=== PATIENT | male | born 1950 | race Caucasian/White ===

== ENCOUNTER 2021-02-17 06:59 | Outpatient (CLI) | payer OTHER, SELFPAY ==
--- NOTE | 2021-02-17 07:15 | USCV_ITS ---
Martín Nogueira Age: 71 Gender: M : 1950 Exam Date: 02/17/2021 07:13 Ordering Phys: Maribel Almeida MD ([email or web address]) Technologist: Exam Location: [facility] [place] Indication: CCA DISEASE Risk Factors: Previous Vascular Surgery: Right Brachial BP: / Left Brachial BP: / Right Left Velocity (cm/s) Spectral Plaque Velocity (cm/s) Spectral Plaque Syst/Diast Broadening Syst/Diast Broadening 65.10/ 14.30 Prox CCA 56.20 / 12.50 63.90/ 14.30 Mid CCA 82.20 / 19.80 77.20/ 18.70 Hetro Distal CCA 74.90 / 14.60 Hetro 86.00/ 16.50 Hetro Prox ICA 68.70 / 17.70 Hetro 79.40/ 25.40 Hetro Mid ICA 74.00 / 19.20 Hetro 100.30/26.50 Distal ICA 71.10 / 21.10 119.60 ECA 146.00 1.30 ICA/CCA 0.90 Antegrade Vertebral Antegrade 47.00/ 7.50 cm/s 24.60/ 4.10 cm/s Bi Subclavian Bi 84.90 123.0 0 FINDINGS Moderate heterogeneous plaques bilaterally of the bifurcations and proximal internal carotid arteries Intimal thickening in the common carotid arteries bilaterally. Antegrade flow in the vertebral arteries bilaterally. Near normal Doppler velocities in the external carotid and subclavian arteries bilaterally CONCLUSIONS Moderate heterogeneous plaques bilaterally at the bifurcations and proximal internal carotid arteries with Doppler features consistent with less than 50% stenosis. Intimal thickening in the common carotid arteries bilaterally. Compared to the study from 01/24/2019, there may not be a significant change Dr Maribel Almeida MD [facility] (Electronically Signed) Final Date: 18 February 2021 22:31 S
== END 2021-02-17 07:00 | disposition home or self-care (01) ==
PROVIDERS: PCP Family Medicine; Visit Provider Internal Medicine Cardiovascular Disease
DX: I77.9 Disorder of arteries and arterioles, unspecified (principal); I65.23 Occlusion and stenosis of bilateral carotid arteries
CPT/HCPCS: 93880

== ENCOUNTER 2021-07-21 08:29 | Emergency (ER) | payer OTHER, SELFPAY ==
[2021-07-21 08:33] VITALS: BP 138/89; PULSE 88; RESP 16; TEMP 36.9; O2SAT 92; BMI 33.5
--- NOTE | 2021-07-21 08:57 | W.ED.COVID ---
HPI - COVID General: Chief Complaint: COVID symptoms Stated Complaint: N/V, CONGESTION, FATIGUE Time Seen by Provider: 07/21/21 08:33 Triage information: Has fever, cough or shortness of breath. No known COVID + exposure last 14 days History of Present Illness: HPI Narrative: 71-year-old male presents emergency room complaining of cough and congestion he relates been going on for a week or more. He was seen this [facility] at [facility] and had a Covid swab done there is a send out results no results available. He has not been vaccinated nor is he previously tested positive. He is complaining of nausea is also had some diarrhea that concurred with onset. Low-grade subjective fever upper respiratory congestion nonproductive cough. No vomiting. Some mild abdominal discomfort which she relates to his frequent coughing. MD complaint: has COVID symptoms Prior covid testing: yes, results pending at other location Prior testing date: 07/21/21 COVID 19 common symptoms: positive fever(s), chills, cough and non-productive cough; negative throat pain, nasal congestion, nausea, vomiting or diarrhea COVID 19 other sytmptoms: negative chest pain or requiring oxygen Onset (ago): week(s) (1 week or more) Severity: mild Pertinent comorbid conditions: diabetes and hypertension Treatment prior to arrival: none COVID Results: SARS-CoV-2 Antigen (Rapid) Positive (Negative) H 07/21/21 09:28 07/21/21 Review of Systems Const: Reports: fever(s) and chills ENMT: Denies: throat pain, ear or mastoid pain, nasal discharge or nasal congestion Card: Denies: chest pain, edema, dyspnea on exertion or orthopnea Resp: Reports: non-productive cough GI: Denies: abdominal pain, nausea, vomiting, hematemesis, coffee ground emesis, diarrhea, constipation, bloating, hematochezia or melena : Denies: flank pain, dysuria, urinary frequency or urinary urgency Skin/Breast: Denies: rash or pruritus PFSH ED PFSH: Medical History Aortic valve sclerosis 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 Carotid stenosis Dyslipidemia Essential (primary) hypertension Pacemaker Family History Mother CAD (coronary artery disease) Brother CAD (coronary artery disease) Family/Other CAD (coronary artery disease) Sister Cancer Denies family history of Diabetes Clotting disorder Dementia Chronic kidney disease (CKD) Suicide Anesthesia complication Bleeding disorder Lung disease Stroke Social History Smoking and tobacco status: former smoker Alcohol intake: never Physical Exam Const: COMMON NORMALS: no acute distress GENERAL APPEARANCE: cooperative and comfortable ORIENTATION/CONSCIOUSNESS: Yes awake, Yes oriented to person, Yes oriented to place and Yes oriented to time HENMT: COMMON NORMALS: normocephalic and atraumatic HEAD & SCALP: normocephalic and atraumatic Neck/C-Spine: COMMON NORMALS: no JVD Resp: COMMON NORMALS: normal respiratory effort, No retractions, No use of accessory muscles and clear to auscultation bilaterally AUSCULTATION: clear to auscultation bilaterally Cardio: COMMON NORMALS: no JVD, regular rate, regular rhythm and No murmurs present (Cardio) RATE: regular rate RHYTHM: regular rhythm GI: COMMON NORMALS: Soft to palpation and No hepatosplenomegaly present AUSCULTATION: Yes normoactive bowel sounds PALPATION: Yes Soft to palpation, No Tenderness to palpation present (GI), No Guarding due to palpation present (GI) and Yes No hepatosplenomegaly present Extremity: COMMON NORMALS: normal to inspection, capillary refill normal, no clubbing, cyanosis or edema, no calf tenderness and no pedal edema Neuro: SENSORIUM/ORIENTATION: Yes oriented to person, Yes oriented to place and Yes oriented to time Skin: COMMON NORMALS: no rashes or lesions noted GENERAL SKIN EXAM: no rashes or lesions noted Course Vital Signs: Vital signs: Vital Signs Temperature 98.4 F 07/21/21 08:33 Pulse Rate 68 07/21/21 09:25 Respiratory Rate 16 07/21/21 09:25 Blood Pressure 138/89 07/21/21 08:33 Pulse Oximetry 90 07/21/21 09:34 MDM - COVID MDM Narrative Medical decision making narrative: Patient initially evaluated for home O2 and [place] into discharge the patient is oxygen sats that seem to decrease some we repeated the evaluation he does not qualify we will discharge him home on 2 weeks liters per minute also on dexamethasone follow-up with his primary care doctor tomorrow return if has further problems. Medical Records Attestation: I reviewed the patient's medical records. Lab Data Attestation: I reviewed the patient's lab results. Result diagrams: 07/21/21 09:29 07/21/21 09:29 Labs: Radiology Impressions Chest X-Ray 07/21/21 08:59 Impression: 1. Minimal peripheral patchy opacity in the right lung which could represent acute pneumonia. 2. Cardiomegaly and permanent cardiac pacemaker. Laboratory Results WBC 5.6 10^3/uL (4.0-10.0) 07/21/21 09: RBC 6.26 10^6/uL (4.1-5.3) H 07/21/21 09: Hgb 16.2 g/dL (11.7-16.6) 07/21/21 09: Hct 50.4 % (42.0-52.0) 07/21/21 09: MCV 80.5 fl (80-94) 07/21/21 09: MCH 25.9 pg (28.0-34.0) L 07/21/21 09: MCHC 32.1 g/dL (30.0-36.0) 07/21/21 09: RDW 15.6 % (12.1-15.1) H 07/21/21 09: Plt Count 351 10^3/cmm (130-400) 07/21/21 09: MPV 10.8 fL (7.4-10.4) H 07/21/21 09: Neut % (Auto) 70.1 % 07/21/21 09: Lymph % (Auto) 12.5 % 07/21/21 09: Dukes % (Auto) 13.9 % 07/21/21 09: Eos % (Auto) 2.5 % 07/21/21 09: Baso % (Auto) 0.5 % 07/21/21 09: Neut # (Auto) 3.94 10^3/uL (1.8-7.7) 07/21/21 09:29 Lymph # (Auto) 0.7 10^3/uL (0.8-4.8) L 07/21/21 09: Dukes # (Auto) 0.8 10^3/uL (0.2-0.9) 07/21/21: Eos # (Auto) 0.1 10^3/uL (0.0-0.8) 07/21/21: Baso # (Auto) 0.0 10^3/uL (0.0-0.1) 07/21/21: Nucleated RBC % (auto) 0 % 07/21/21: Nucleated RBCs # 0.0 /100WBC 07/21/21: Sodium 139 mmol/L (136-145) 07/21/21: Potassium 4.2 mmol/L (3.5-5.1) 07/21/21: Chloride 102 mmol/L (98-107) 07/21/21: Carbon Dioxide 20 mmol/L (22-29) L 07/21/21: Anion Gap 21.2 (5-19) H 07/21/21: BUN 19 mg/dL (8-23) 07/21/21: Creatinine 1.3 mg/dL (0.7-1.2) H 07/21/21: GFR Calculation 54.6 mL/min (90-130) L 07/21/21: Glucose 109 mg/dL (65-115) 07/21/21: Calculated Osmolality 291 mOsm/kg (285-295) 07/21/21: Calcium 9.5 mg/dL (8.5-10.5) 07/21/21: Total Bilirubin 0.4 mg/dL (0.15-1.2) 07/21/21: AST 18 U/L (0-40) 07/21/21: ALT 18 U/L (0-41) 07/21/21: Alkaline Phosphatase 57 IU/L (40-130) 07/21/21: Total Protein 7.6 g/dL (6.6-8.7) 07/21/21: Albumin 4.1 g/dL (3.5-5.2) 07/21/21: Globulin 3.5 g/dL (1.3-4.6) 07/21/21 09:29 SARS-CoV-2 Ag (Rapid) Positive (Negative) H 07/21/21 09:28 COVID Results: SARS-CoV-2 Antigen (Rapid) Positive (Negative) H 07/21/21 09:28 07/21/21 Discharge Plan Discharge Patient Disposition: Home Clinical Impression: COVID-19 Condition: Stable Prescriptions: New dexamethasone 6 mg tablet 6 mg PO DAILY Qty: 7 0RF Zofran 4 mg tablet 4 mg PO Q6H PRN (Reason: nausea and vomiting) Qty: 20 0RF No Action multivitamin [Multiple Vitamins] Tablet 1 tab PO DAILY 0RF omega-3 fatty acids [Fish Oil Concentrate] 1,000 mg capsule 1,000 mg PO BID 0RF Rx Instructions: 1200 mg capsules rosuvastatin 20 mg tablet 20 mg PO DAILY 0RF aspirin [Adult Low Dose Aspirin] 81 mg tablet,delayed release (DR/EC) 81 mg PO DAILY 0RF amlodipine 10 mg tablet 10 mg PO DAILY 0RF cholecalciferol (vitamin D3) 25 mcg (1,000 unit) capsule 25 mcg PO TID 0RF lisinopril 40 mg tablet 40 mg PO DAILY Qty: 90 3RF Discharge Orders: Discharge ED (Routine); Ordered 07/21/21 Ordered By: Ernie Orozco Other Ambulatory Orders: DME: Oxygen (Order) Location: None Selected Ordered By: Ernie Orozco Referrals: Lucy Puente MD [Primary Care Provider] - Discharge Diet: Usual diet Discharge Activity: Increase activity as tolerated Patient Instructions: COVID-19 (Coronavirus Disease 2019) (ED), Opioid Safety Activity Restrictions/Additional Instructions: Maintain home quarantine until symptoms have improved for 24 hours. Monitor oxygen sat with home pulse oximeter given to you at discharge. If sats at rest while on oxygen are less than 90% return to emergency room. Coding Level of Care Code ED Consumer Relations Complaint Clerk for Jose Pandey Exam Comprehensive
--- NOTE | 2021-07-21 08:59 | XR_ITS ---
WS: [id number] Portable AP upright chest, 07/21/2021 Clinical Data: cough Comparison: Portable chest, 04/20/2018. Findings: There is minimal peripheral patchy opacity in the right lung. The left lung is clear. The 2 -lead pacemaker remains in good position. The aortic arch and descending thoracic aorta show calcific ation and tortuosity. The pulmonary vascularity is not increased. No pneumothorax is seen. The heart is normal. XR/XR chest 1V portable [id number] Impression: 1. Minimal peripheral patchy opacity in the right lung which could represent ac [place] pneumonia. 2. Cardiomegaly and permanent cardiac pacemaker.
--- NOTE | 2021-07-21 09:24 | PC.NURSE ---
pt placed on continuous spo2, nibp, and cm.
[2021-07-21 09:25] VITALS: PULSE 68; RESP 16; O2SAT 91
[2021-07-21 09:32] VITALS: O2SAT 91
[2021-07-21 09:34] VITALS: O2SAT 90; O2SAT 91
[2021-07-21 09:42] LABS: Basophils % 0.5 %; Eosinophils # 0.1 10^3/uL (0.0-0.8); Eosinophils % 2.5 %; Hematocrit 50.4 % (42.0-52.0); Hemoglobin 16.2 g/dL (11.7-16.6); Lymphocytes # 0.7 10^3/uL (0.8-4.8); Lymphocytes % 12.5 %; Mean Corpuscular HGB Conc 32.1 g/dL (30.0-36.0); Mean Corpuscular Hemoglobin 25.9 pg (28.0-34.0); Mean Corpuscular Volume 80.5 fl (80-94); Mean Platelet Volume 10.8 fL (7.4-10.4); Monocytes # 0.8 10^3/uL (0.2-0.9); Monocytes % 13.9 %; Neutrophils # 3.94 10^3/uL (1.8-7.7); Neutrophils % 70.1 %; Nucleated Red Blood Cells % 0 %; Platelet Count 351 10^3/cmm (130-400); Red Blood Count 6.26 10^6/uL (4.1-5.3); Red Cell Distribution Width 15.6 % (12.1-15.1); White Blood Count 5.6 10^3/uL (4.0-10.0)
[2021-07-21 09:59] LABS: Alanine Aminotransferase 18 U/L (0-41); Albumin Level 4.1 g/dL (3.5-5.2); Alkaline Phosphatase 57 IU/L (40-130); Anion Gap 21.2 (5-19); Aspartate Amino Transferase 18 U/L (0-40); Blood Urea Nitrogen 19 mg/dL (8-23); Calcium 9.5 mg/dL (8.5-10.5); Carbon Dioxide 20 mmol/L (22-29); Chloride 102 mmol/L (98-107); Globulin 3.5 g/dL (1.3-4.6); Glomerular Filtration Rate 54.6 mL/min (90-130); Glucose 109 mg/dL (65-115); Osmolality Calculated 291 mOsm/kg (285-295); Potassium 4.2 mmol/L (3.5-5.1); Sodium 139 mmol/L (136-145); Total Bilirubin 0.4 mg/dL (0.15-1.2); Total Protein 7.6 g/dL (6.6-8.7)
[2021-07-21 10:02] LABS: SARS Covid-2 Antigen Positive (Negative)
--- NOTE | 2021-07-21 10:11 | PC.NURSE ---
PT SPO2 IS 89% ON RA. INFORMED DR. AMADO VO TO CONTACT RESPIRATORY AND PERFORM ANOTHER HOME SPO2 CHALLENGE.
--- NOTE | 2021-07-22 14:24 | DCPLANNER ---
medical staff manager had message to schedule a telehealth visit. Case key called and spoke with patients , supervisor case loading was told that patient has [facility] insurance. medical staff manager was told that before patient can be seen that clinic would have to have an authorization before patient could be seen. medical staff manager called Lola with [facility], was told that a note was in patients chart stating that someone from the [facility] would be calling and speaking with the patient. medical staff manager called patient and spoke with his and told the that someone from the [facility] would call patient and check on him.
== END 2021-07-21 11:20 | disposition home or self-care (01) ==
PROVIDERS: Emergency Provider Family Medicine; PCP Family Medicine
DX: U07.1 COVID-19 (principal); Z79.82 Long term (current) use of aspirin; I25.10 Atherosclerotic heart disease of native coronary artery without angina pectoris; E78.5 Hyperlipidemia, unspecified; I10 Essential (primary) hypertension; Z95.0 Presence of cardiac pacemaker; Z87.891 Personal history of nicotine dependence
CPT/HCPCS: 71045; 80053; 85025; 87426; 99283

== ENCOUNTER → 2021-11-17 09:36 | Outpatient (BNVA) | payer OTHER, SELFPAY | PROVIDERS: PCP Family Medicine; Visit Provider Internal Medicine Cardiovascular Disease | DX: I25.10 Atherosclerotic heart disease of native coronary artery without angina pectoris (principal); R07.89 Other chest pain; I35.8 Other nonrheumatic aortic valve disorders; Z95.0 Presence of cardiac pacemaker; I10 Essential (primary) hypertension; E78.5 Hyperlipidemia, unspecified; I65.23 Occlusion and stenosis of bilateral carotid arteries; Z87.891 Personal history of nicotine dependence; Z86.16 Personal history of COVID-19 | CPT/HCPCS: 99214 ==

== ENCOUNTER 2021-11-24 09:57 | Outpatient (CLI) | payer OTHER, SELFPAY ==
--- NOTE | 2021-11-24 10:00 | USCV_ITS ---
Martín Nogueira Age: 71 Gender: M : 1950 Exam Date: 11/24/2021 10:35 Ordering Phys: Maribel Almeida MD ([email or web address]) Technologist: Mark Gary Exam Location: [facility] [place] Indication: chest pain BP: 112 / 60 HR: 50 Rhythm: Sinus Technical Quality: Adequate MEASUREMENTS (Male / Female) Normal Values 2D ECHO LV Diastolic Diameter PLAX 6.1 cm 4.2 - 5.9 / 3.9 - 5.3 cm LV Systolic Diameter PLAX 4.3 cm IVS Diastolic Thickness 1.1 cm 0.6 - 1.0 / 0.6 - 0.9 cm IVS Systolic Thickness 1.2 cm LVPW Diastolic Thickness 1.1 cm 0.6 - 1.0 / 0.6 - 0.9 cm LVPW Systolic Thickness 1.9 cm RV Chamber Size 3.3 cm LVOT Diameter 2.0 cm LV Ejection Fraction 2D Teich 55.0 % LV Ejection Fraction MOD 2C 56.5 % LV Ejection Fraction 2C AL 57.3 % LA Diameter 3.8 cm LA Width 4.3 cm LA Height 5.1 cm RA Width 3.3 cm RA Height 4.5 cm Aorta at Sinotubular Diameter 2.3 cm IVC Diameter 2.7 cm M-MODE Aortic Annulus Diameter 2.7 cm LA Ao Ratio MM 1.4 MV E Point Septal Separation 0.7 cm DOPPLER AV Peak Velocity 166.5 cm/s LVOT Peak Velocity 81.0 cm/s AV Area Cont Eq vti 1.8 cm squared AV Area Cont Eq pk 1.6 cm squared MV Peak Velocity 141.0 cm/s MV Area PHT 3.3 cm squared Mitral E to A Ratio 0.6 MV E' Velocity 32.0 cm/s Mitral E to MV E' Ratio 7.2 Mitral E to LV E' Lateral Ratio 7.9 Mitral E to LV E' Septal Ratio 6.6 TR Peak Velocity 271.7 cm/s TR Peak Gradient 29.5 mmHg TR Mean Velocity 208.5 cm/s TR Mean Gradient 17.7 mmHg TR Velocity Time Integral 79.9 cm Right Atrial Pressure 8.0 mmHg Pulmonary Artery Systolic Pressu 37.5 mmHg RV Acceleration Time 0.1 s RV Ejection Time 0.4 s RV AcT/ET 0.3 FINDINGS Left Ventricle Normal left ventricular size and systolic function, EF 53 %. Mild left ventricular hypertrophy. Hypokinetic mid and apical septum and apical inferior wall segments. Grade I/IV diastolic dysfunction (abnormal relaxation filling pattern), normal to mildly elevated filling pressures. Right Ventricle The right ventricle is normal in size and function. Right Atrium The right atrium is normal in size. Left Atrium The left atrium is normal in size. Mitral Valve No gross abnormalities noted Aortic Valve Thickened aortic valve. Tricuspid Valve Trace tricuspid valve regurgitation. Pulmonic Valve Pulmonic valve not well visualized. Pericardium Normal pericardium without effusion. Aorta Normal ascending aorta dimension. IVC Normal IVC dimension with <50% respiratory change of the inferior vena cava. CONCLUSIONS Normal left ventricular size and systolic function, EF 53 %. Mild left ventricular hypertrophy. Hypokinetic mid and apical septum and apical inferior wall segments. Grade I/IV diastolic dysfunction (abnormal relaxation filling pattern), normal to mildly elevated filling pressures. Thickened aortic valve. Trace tricuspid valve regurgitation. Estimated pulmonary artery peak systolic pressure 38 mm ofHg There is no pericardial effusion. There are no intracardiac masses. Compared to the study from a 04/17/2018, the wall motion abnormalities appear to be new Dr Maribel Almeida MD FAC (Electronically Signed) Final Date: 24 Nov 2021 19:40 S
== END 2021-11-24 09:58 | disposition home or self-care (01) ==
LOC: RAD 09:58
PROVIDERS: PCP Family Medicine; Visit Provider Internal Medicine Cardiovascular Disease
DX: R06.00 Dyspnea, unspecified (principal); R07.89 Other chest pain; I07.1 Rheumatic tricuspid insufficiency
CPT/HCPCS: 93306

== ENCOUNTER 2021-11-27 07:33 | Outpatient (CLI) | payer OTHER, SELFPAY ==
[2021-11-27 08:41] VITALS: BMI 32.5
--- NOTE | 2021-11-27 08:52 | ECG_ITS ---
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 Interpretive Statements Procedure: At the baseline, the blood pressure was 180/59 mmHg with a heart rate of 62 bpm. The electrocardiogram showed paced rhythm. The Lexiscan was infused over a period of 20 seconds. A total of 0.4 mg of Lexiscan was infused. The stress phase was continued for a total of 5 minutes. Heart rate was at the end of stress phase was 64 bpm and a blood pressure of 104/65 mmHg. The EKG at the peak infusion revealed paced rhythm Sestamibi was injected 20 seconds after the Lexiscan infusion. Blood pressure at the end of recovery phase was 154/62 mmHg with a heart rate of 68 bpm. Conclusion: 1. Normal EKG response to Lexiscan infusion 2. No Lexiscan induced chest pain or cardiac arrhythmia. 3. Normal blood pressure and heart rate response. 4. Sestamibi/sestamibi perfusion scan pending; see separate report. Electronically Signed On 12-20-2021 14:20:46 CDT by Festus Flores M.D. [id number]
--- NOTE | 2021-11-27 08:53 | NMCV_ITS ---
NM nona perf SPECT r/s* [id number] Martín Nogueira Age: 71 Gender: M : 1950 Exam Date: 11/27/2021 09:14 Ordering Phys: Maribel Almeida MD ([email or web address]) Technologist: LORETTA Espinal Exam Location: [facility] Indications: CHEST PAIN SHORTNESS OF BREATH STRESS TEST Please see separate stress test report in [facility] for full findings IMAGE PROTOCOL Rest/Stress 1 Lexiscan Day Radiopharmaceutical Dose (mCi) Administration Site Administered by Rest: Tc-99m 10.8 IV LORETTA Espinal Sestamibi Stress:Tc-99m 33.0 IV LORETTA Gomes Sestamibi Rest: 11/27/2021 60 Discovery 630 Stress: 11/27/2021 30 Discovery 630 0.4mg Lexiscan. Images obtained in supine and prone position. SPECT RESULTS Technical Quality: Excellent Raw Data Analysis: Normal Image Corrections: No attenuation or motion correction applied Summed Stress Score: 7 Summed Rest Score: 14 Summed Difference Score: 0 PERFUSION FINDINGS Mild to moderate area of moderately decreases uptake was noted in the in the mid and apical inferior, mid anteroseptal, apical lateral and apical segments. Subtle area of reversibility was noted in the apical lateral region. FUNCTIONAL RESULTS (calculated via Gated SPECT) Stress Image LV EF (%): 37 Stress EDV (mL):200 TID: 1.22 Stress ESV (mL):127 FUNCTIONAL FINDINGS: Segmental wall motion analysis revealing diffuse hypokinesis of the septum, apical anterior and LV apex. IMPRESSIONS 1. Myocardial perfusion imaging revealing areas of persistent decreased uptake in the inferior wall, anteroseptal and apical regions with subtle areas of reversibility in the apical lateral region, suggestive of myocardial scarring in the distribution of the all the 3 coronary arteries.with some subtle areas of ischemia in the distribution of the circumflex artery. 2. Diminished LV ejection fraction of 37%. 3. Multiple wall motion normalities as mentioned above. 4. Moderately dilated LV cavity with an end-systolic volume of 127 ml 5. Elevated transient ischemic dilatation ratio(1.22) may suggest endocardial ischemia. Clinical correlation is recommended Dr Maribel Almeida MD FAC (Electronically Signed) Final Date: 27 November 2021 15:28 S
[2021-11-27] MEDS: regadenoson 0.4 Mg/5 ml Syringe IVP (10:08)
[2021-11-27 10:29] VITALS: BP 154/62; PULSE 68
== END 2021-11-27 07:34 | disposition home or self-care (01) ==
LOC: CDL 07:35
PROVIDERS: PCP Family Medicine; Visit Provider Internal Medicine Cardiovascular Disease
DX: R06.02 Shortness of breath (principal); R07.89 Other chest pain
CPT/HCPCS: 78452; 93017; A9500; J2785

== ENCOUNTER 2021-12-01 09:47 | Inpatient (IN) | payer OTHER, MEDICARE, SELFPAY ==
[2021-12-01] VITALS (27 sets, daily range): BP systolic 105–180; BP diastolic 54–91; PULSE 60–79; RESP 13–24; TEMP 36.7; O2SAT 90–96; BMI 32.5
--- NOTE | 2021-12-01 10:14 | ECG_ITS ---
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 Measurements Intervals [place] Rate: 88 P: 139 CO: 178 QRS: -83 QRSD: 193 T: 81 QT: 435 QTc: 528 Interpretive Statements ELECTRONIC ATRIAL PACEMAKER ELECTRONIC VENTRICULAR PACEMAKER Compared to ECG 05/25/2017 10:01:23 Sinus bradycardia no longer present First degree AV block no longer present Right bundle-branch block no longer present Left anterior fascicular block no longer present Left ventricular hypertrophy no longer present ST (T wave) deviation no longer present Electronically Signed On 12-01-2021 17:52:41 CDT by Festus Flores M.D. [id number] f
--- NOTE | 2021-12-01 10:14 | XR_ITS ---
WS: [id number] PORTABLE CHEST HISTORY: chest pain COMPARISON: 07/21/2021 Dual lead LEFT subclavian pacer. Lungs are well-aerated. Improved aeration since the prior examination. No focal consolidation. Normal vasculature. No pleural effusion or pneumothorax. Cardiac size: Normal. Mediastinum/Aorta: Mild atherosclerosis aorta. No osseous abnormality seen. XR/XR chest 1V portable [id number] IMPRESSION: No acute cardiopulmonary disease.
--- NOTE | 2021-12-01 10:14 | W.ED.CHESTPA ---
HPI - Chest Pain General: Chief Complaint: Chest Pain Stated Complaint: chest pain Time Seen by Provider: 12/01/21 10:11 Source: patient Mode of arrival: ambulatory Limitations: no limitations History of Present Illness: 71-year-old male presents to the emergency room with complaint of of chest pain. For last 4 months he has had intermittent chest pain with exertion found that it is been increasing in intensity. This morning he got up and walked his dog he was able to walk about what he estimated to be 200 yards and had enough discomfort he had to stop and rest after several minutes it resolves. He states its been a typical pattern lately. Low level of exertion required to elicit chest pain has remained essentially unchanged. He did have an angiogram several years ago had noncritical coronary artery disease and evidently per his report there was no intervention. 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 On June 29 of this year patient had a Lexiscan sestamibi stress test there was question of some reversibility on the test report reviewed in chart. MD complaint: chest pain Pertinent past history: coronary artery disease Onset (ago): month(s) Timing of current episode: episodic Prior episodes: Yes Onset: during exertion Pain location: substernal Severity: moderate Quality: tightness, aching and heaviness Relieving factors: nothing Exacerbating factors: exertion Associated symptoms: Reports dyspnea; Deny abdominal pain, diaphoresis, fever(s), leg edema, nausea, palpitations, sense of impending doom, syncope or vomiting Treatment prior to arrival: none Review of Systems Const: Reports: fatigue; Denies: fever(s), chills, malaise or diaphoresis ENMT: Denies: throat pain, ear or mastoid pain, nasal discharge or nasal congestion Card: Reports: chest pain, edema and swelling of feet/ankles; Denies: palpitations, irregular heart rhythm or syncope Resp: Reports: dyspnea GI: Denies: abdominal pain, nausea or vomiting : Denies: flank pain, dysuria, urinary frequency or urinary urgency Skin/Breast: Denies: rash or pruritus PFS ED PFSH: Medical History Aortic valve sclerosis Atherosclerotic heart disease of [place] coronary artery without angina pectoris Atherosclerotic heart disease of [place] coronary artery without angina pectoris Carotid stenosis Dyslipidemia Essential (primary) hypertension Pacemaker Family History Mother CAD (coronary artery disease) Brother CAD (coronary artery disease) Family/Other CAD (coronary artery disease) Sister Cancer Denies family history of Diabetes Clotting disorder Dementia Chronic kidney disease (CKD) Suicide Anesthesia complication Bleeding disorder Lung disease Stroke Social History Smoking and tobacco status: former smoker Alcohol intake: never Physical Exam Const: GENERAL APPEARANCE: cooperative and comfortable ORIENTATION/CONSCIOUSNESS: Yes awake, Yes oriented to person, Yes oriented to place and Yes oriented to time HENMT: COMMON NORMALS: normocephalic and atraumatic HEAD & SCALP: normocephalic and atraumatic Neck/C-Spine: COMMON NORMALS: no JVD Resp: COMMON NORMALS: normal respiratory effort, No retractions, No use of accessory muscles and clear to auscultation bilaterally AUSCULTATION: clear to auscultation bilaterally Cardio: COMMON NORMALS: no JVD, regular rate, regular rhythm and No murmurs present (Cardio) RATE: regular rate RHYTHM: regular rhythm GI: COMMON NORMALS: Soft to palpation and No hepatosplenomegaly present AUSCULTATION: Yes normoactive bowel sounds PALPATION: Yes Soft to palpation, No Tenderness to palpation present (GI), No Guarding due to palpation present (GI) and Yes No hepatosplenomegaly present Extremity: COMMON NORMALS: normal to inspection, capillary refill normal, no clubbing, cyanosis or edema, no calf tenderness and no pedal edema Neuro: SENSORIUM/ORIENTATION: Yes oriented to person, Yes oriented to place and Yes oriented to time Skin: COMMON NORMALS: no rashes or lesions noted GENERAL SKIN EXAM: no rashes or lesions noted Course Vital Signs: Vital signs: Vital Signs Temperature 98.1 F 12/01/21 09:58 Pulse Rate 62 12/01/21 14:27 Respiratory Rate 18 12/01/21 14:27 Blood Pressure 127/68 12/01/21 14:27 Pulse Oximetry 94 12/01/21 14:27 MDM - Chest Pain Medical Decision Making Patient stress test last week was read as positive. He is increasing intensity of symptoms and the lessening exertion required to bring them about is concerning. He also has a strong family history. Contacted Dr. Almeida who came and seen the patient in the ER the hospital is at capacity at this point which does make managing this somewhat difficult. Dr. Almeida is looking at managing this in another way that may actually result in him getting to the cardiac catheterization faster. Discussed with Dr. Almeida. He is requesting we admit the patient and he will take him to Super[facility] Merchandising orders are written. Medical Records I reviewed the patient's medical records. Lab Data I reviewed the patient's lab results. : 12/01/21 11:35 12/01/21 10:30 Radiology Impressions Chest X-Ray 12/01/21 10:14 IMPRESSION: No acute cardiopulmonary disease. Laboratory Results WBC 8.6 10^3/uL (4.0-10.0) 12/01/21 11:35 RBC 5.96 10^6/uL (4.1-5.3) H 12/01/21 11:35 Hgb 15.5 g/dL (11.7-16.6) 12/01/21 11:35 Hct 48.6 % (42.0-52.0) 12/01/21 11:35 MCV 81.5 fl (80-94) 12/01/21 11:35 MCH 26.0 pg (28.0-34.0) L 12/01/21 11:35 MCHC 31.9 g/dL (30.0-36.0) 12/01/21 11:35 RDW 15.3 % (12.1-15.1) H 12/01/21 11:35 Plt Count 510 10^3/cmm (130-400) H 12/01/21 11:35 MPV 10.6 fL (7.4-10.4) H 12/01/21 11:35 Neut % (Auto) 73.4 % 12/01/21 11:35 Lymph % (Auto) 14.4 % 12/01/21 11:35 Larue % (Auto) 9.7 % 12/01/21 11:35 Eos % (Auto) 0.0 % 12/01/21 11:35 Baso % (Auto) 1.9 % 12/01/21 11:35 Neut # (Auto) 6.28 10^3/uL (1.8-7.7) 12/01/21 11:35 Lymph # (Auto) 1.2 10^3/uL (0.8-4.8) 12/01/21 11:35 Larue # (Auto) 0.8 10^3/uL (0.2-0.9) 12/01/21 11:35 Eos # (Auto) 0.0 10^3/uL (0.0-0.8) 12/01/21 11:35 Baso # (Auto) 0.2 10^3/uL (0.0-0.1) H 12/01/21 11:35 Nucleated RBC % (auto) 0 % 12/01/21 11:35 Nucleated RBCs # 0.0 /100WBC 12/01/21 11:35 Sodium 134 mmol/L (136-145) L 12/01/21 10:30 Potassium 4.0 mmol/L (3.5-5.1) 12/01/21 10:30 Chloride 100 mmol/L (98-107) 12/01/21 10:30 Carbon Dioxide 21 mmol/L (22-29) L 12/01/21 10:30 Anion Gap 17.0 (5-19) 12/01/21 10:30 BUN 32 mg/dL (8-23) H 12/01/21 10:30 Creatinine 1.4 mg/dL (0.7-1.2) H 12/01/21 10:30 GFR Calculation 50.1 mL/min (90-130) L 12/01/21 10:30 Glucose 97 mg/dL (65-115) 12/01/21 10:30 Calculated Osmolality 285 mOsm/kg (285-295) 12/01/21 10:30 Calcium 9.5 mg/dL (8.5-10.5) 12/01/21 10:30 Troponin T Baseline 70 ng/L (0-15) H 12/01/21 10:30 Troponin T 120 Minute 69.74 ng/L (0-15) H 12/01/21 12:30 Delta Troponin T -0.26 ABS# (0-10) L 12/01/21 12:30 Discharge Plan Discharge Patient Disposition: Admitted As Inpatient Clinical Impression: Atherosclerotic heart disease of [place] coronary artery with unstable angina pectoris, Pacemaker, Aortic valve sclerosis, Carotid stenosis Condition: Stable Prescriptions: No Action nitroglycerin 0.4 mg tablet, sublingual 0.4 mg sublingual Q5M PRN (Reason: chest pain) 30 Days Qty: 30 3RF Rx Instructions: until response; do not exceed 3 doses per episode rosuvastatin 20 mg tablet 30 mg PO BEDTIME 0RF aspirin [Adult Low Dose Aspirin] 81 mg tablet,delayed release (DR/EC) 81 mg PO DAILY@12 0RF amlodipine 10 mg tablet 10 mg PO DAILY@12 0RF multivitamin Tablet 1 tab PO DAILY PRN (Reason: unknown) 0RF Fish Oil Concentrate 1,000 mg Capsule 2,000 mg PO DAILY 0RF lisinopril-hydrochlorothiazide 20-25 mg Tablet 1 tab PO QAM 0RF Referrals: Lucy Puente MD [Primary Care Provider] - Patient Instructions: Opioid Safety Coding Level of Care Code 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
[2021-12-01] MEDS: nitroglycerin 1 gm/inch oint Pkt 1 INCH TOPICAL (11:28)
[2021-12-01 11:46] LABS: Basophils # 0.2 10^3/uL (0.0-0.1); Basophils % 1.9 %; Hematocrit 48.6 % (42.0-52.0); Hemoglobin 15.5 g/dL (11.7-16.6); Lymphocytes # 1.2 10^3/uL (0.8-4.8); Lymphocytes % 14.4 %; Mean Corpuscular HGB Conc 31.9 g/dL (30.0-36.0); Mean Corpuscular Volume 81.5 fl (80-94); Mean Platelet Volume 10.6 fL (7.4-10.4); Monocytes # 0.8 10^3/uL (0.2-0.9); Monocytes % 9.7 %; Neutrophils # 6.28 10^3/uL (1.8-7.7); Neutrophils % 73.4 %; Nucleated Red Blood Cells % 0 %; Platelet Count 510 10^3/cmm (130-400); Red Blood Count 5.96 10^6/uL (4.1-5.3); Red Cell Distribution Width 15.3 % (12.1-15.1); White Blood Count 8.6 10^3/uL (4.0-10.0)
[2021-12-01 11:50] LABS: Blood Urea Nitrogen 32 mg/dL (8-23); Calcium 9.5 mg/dL (8.5-10.5); Carbon Dioxide 21 mmol/L (22-29); Chloride 100 mmol/L (98-107); Glomerular Filtration Rate 50.1 mL/min (90-130); Glucose 97 mg/dL (65-115); Osmolality Calculated 285 mOsm/kg (285-295); Sodium 134 mmol/L (136-145)
[2021-12-01 11:51] LABS: Troponin(5th) Baseline 70 ng/L (0-15)
[2021-12-01 11:58] LABS: Creatinine Clr Calc Pharmacy 60.7325
--- NOTE | 2021-12-01 12:14 | ECG_ITS ---
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 Measurements Intervals [place] Rate: 70 P: 158 ID: [id number] QRS: -85 QRSD: 196 T: 81 QT: 480 QTc: 521 Interpretive Statements ELECTRONIC ATRIAL PACEMAKER ELECTRONIC VENTRICULAR PACEMAKER Compared to ECG 12/01/2021 09:56:13 No significant changes Electronically Signed On 12-01-2021 17:58:33 CDT by Festus Flores M.D. [id number]
--- NOTE | 2021-12-01 12:15 | PC.PHAR ---
pt and pts states not completely sure of all the medications states whatever the [facility] med list has is what he takes-medications [facility] and what the pt and his thinks he takes-pts [facility] med list has vitamin d3 3000 units daily pt states he hasnt taken in months-
[2021-12-01 12:54] LABS: Troponin 5 2HR 69.74 ng/L (0-15)
[2021-12-01 12:58] LABS: Troponin 5 2HR Delta -0.26 ABS# (0-10)
--- NOTE | 2021-12-01 14:00 | PM.HP ---
Providers/Chief Complaint Admitting Physician: Dr. JAZMÍN Almeida Primary Care Provider: Lucy Puente MD Chief Complaint: chest pain History of Present Illness Martín Nogueira is a 71 year old male with a history of atherosclerotic heart disease, high blood pressure, dyslipidemia, aortic valve sclerosis, permanent pacer implantation for symptomatic bradycardia, he is presenting with increasing chest pain. The patient has a history of atherosclerotic heart disease, apparently has been in his baseline state of health up until June of this year when he started having increasing episodes of chest pains especially after the COVID-19 infection. He was complaining of exertional discomfort in the chest, describes as a burning sensation radiating across the chest associated with the shortness of breath and fatigue. He had a myocardial perfusion imaging last week. He was found to have multiple areas of fixed defect with very small areas of reversible defect in the apical regions. He had a dilated LV cavity and elevated transient ischemic dilatation ratio. He had an echocardiogram done which revealed LV ejection fraction 53%. He had some wall motion normalities as well. According the patient, he been having increasing episodes of chest pains lately. Even with minimal exertion, he has the chest tightness, shortness of breath and fatigue. With these complaints[facility] He had few episodes of chest pain this morning. These episodes are mild to moderate intensity. It may last for 2 to 5 minutes and then goes away with rest. Because of his worsening symptoms, he was advised to come to the emergency room. This patient also is known to have high blood pressure, dyslipidemia, coronary artery disease(less than 50% stenosis bilaterally based on the Doppler examination few months ago) and improvement vasodilation for symptomatic bradycardia/high degree heart block. Patient had the last cardiac catheterization in [address] Malvin Adhikari at the [facility].? He was found to have around 60% ostial narrowing in the left anterior descending artery.? It was decided to treat him medically at that time.? Medications/Allergies Home Medications Medication Instructions Recorded Confirmed Last Taken Type amlodipine 10 mg tablet 10 mg PO DAILY@12 tab 06/25/19 12/01/21 Unknown History aspirin 81 mg tablet,delayed 81 mg PO DAILY@12 tab 06/25/19 12/01/21 Unknown History release (Adult Low Dose Aspirin) rosuvastatin 20 mg tablet 30 mg PO BEDTIME tab 06/25/19 12/01/21 Unknown History nitroglycerin 0.4 mg sublingual 0.4 mg SUBLINGUAL Q5M PRN 30 Days 11/17/21 12/01/21 Unknown Rx tablet #30 tab lisinopril 20 1 tab PO QAM 12/01/21 12/01/21 Unknown History mg-hydrochlorothiazide 25 mg tablet multivitamin 1 tab PO DAILY PRN 12/01/21 12/01/21 Unknown History omega-3 fatty acids 1,000 mg 2,000 mg PO DAILY 12/01/21 12/01/21 Unknown History capsule Allergies Allergy/AdvReac Type Severity Reaction Status Date / Time zolpidem [From Ambien] Allergy Intermediate hallucinati Verified 12/01/21 12:07 ons aspirin Allergy unk Verified 12/01/21 12:07 PFSH Acute PFSH: Medical History Aortic valve sclerosis Atherosclerotic heart disease of [place] coronary artery without angina pectoris Atherosclerotic heart disease of [place] coronary artery without angina pectoris Carotid stenosis Dyslipidemia Essential (primary) hypertension Pacemaker Family History Mother CAD (coronary artery disease) Brother CAD (coronary artery disease) Family/Other CAD (coronary artery disease) Sister Cancer Denies family history of Diabetes Clotting disorder Dementia Chronic kidney disease (CKD) Suicide Anesthesia complication Bleeding disorder Lung disease Stroke Social History Smoking and tobacco status: former smoker Alcohol intake: never Vitals/I&O/Wt Last Vital Signs Temp 98.1 F 12/01/21 09:58 Pulse 61 12/01/21 11:30 Resp 18 12/01/21 11:30 BP 133/64 12/01/21 11:30 Pulse Ox 94 12/01/21 10:32 Weight last 48 hrs Weight 233 lb Physical Exam Narrative: GENERAL: The patient is alert and oriented times three. Not in any acute distress. HEENT: No significant pallor, icterus or lymphadenopathy. The pupils are reactant to light. Oral cavity: There are no mucous membrane lesions. Funduscopic examination: The disk margins appear to be sharp with no exudates or hemorrhages. NECK: Trachea appears to be central. No masses noted. No JVD or thyromegaly appreciated. No carotid bruit. RESPIRATORY: Chest is symmetrical. No intercostals muscle retraction or any accessory muscle activation. There is no chest wall tenderness. Breath sounds are heard bilaterally. No rales or rhonchi heard. No evidence of any consolidation. BREASTS: Deferred. HEART: The PMI is in the 5th left intercostals space just inside the midclavicular line. No palpable precordial events. S1 and S2 are normal. No S3 or S4 heard. No pericardial rub or any click heard. Systolic murmur grade 3 or 6 in the aortic area. No diastolic murmurs. No pericardial rub ABDOMEN: No vessel pulsations or distention. No tenderness. No organomegaly appreciated. No abdominal bruit. Bowel sounds are normally heard. : Deferred. RECTAL: Deferred. LYMPHATIC: No lymphadenopathy noted in the neck or groin. EXTREMITIES: No edema or cyanosis. No clubbing. The pulses are symmetrical bilaterally. The radial, femoral, dorsalis pedis and the posterior tibial pulses are palpated and found to be in good volume and amplitude. MUSCULOSKELETAL: No acute joint deformities or swelling. SKIN: There are no significant scars or skin rash noted. NEUROPSYCHIATRIC: The patient is alert and oriented x3. Appears to be in a good mood. The higher functions are grossly within normal limits. No tremors or rigidity noted. Data : 12/01/21 11:35 12/01/21 10:30 EKG 1: My Interpretation: EKG shows 100% AV paced rhythm. Further interpretation is not possible. EKG computer-generated impression: Chest X-Ray 12/01/21 10:14 IMPRESSION: No acute cardiopulmonary disease. Echocardiogram on 11/24/2021 Normal left ventricular size and systolic function, EF 53 %. ?Mild left ventricular hypertrophy.? Hypokinetic mid and apical ?septum and apical inferior wall segments. Grade I/IV diastolic ?dysfunction (abnormal relaxation filling pattern), normal to ?mildly elevated filling pressures. ?Thickened aortic valve. ?Trace tricuspid valve regurgitation. ?Estimated pulmonary artery peak systolic pressure 38 mm ofHg ?There is no pericardial effusion. ?There are no intracardiac masses. ?Compared to the study from a 04/17/2018, the wall motion ?abnormalities appear to be new Myocardial perfusion imaging on 11/27/2021 1.? Myocardial perfusion imaging revealing areas of persistent decreased uptake ?in the inferior wall, anteroseptal and apical regions with subtle areas of ?reversibility in the apical lateral region, suggestive of myocardial scarring? ?in the distribution of the all the 3 coronary arteries.with some subtle areas ?of ischemia in the distribution of the circumflex artery. ?2.? Diminished LV ejection fraction of 37%.? ?3.? Multiple wall motion normalities as mentioned above. ?4.? Moderately dilated LV cavity with an end-systolic volume of 127 ml ?5.? Elevated transient ischemic dilatation ratio(1.22)? may suggest endocardial ?ischemia.? Clinical correlation is recommended A&P Assessment and plan (1) Atherosclerotic heart disease of [place] coronary artery with unstable angina pectoris: The patient's clinical features are consistent with accelerated angina. Even though the myocardial perfusion imaging showed only small areas of reversible defects, his dilated LV cavity, elevated transient ischemic ulceration ratio and diminished ejection fraction, etc. may suggest possible three-vessel coronary artery disease. In view of his ongoing symptoms, in order to further evaluate his coronary status, cardiac catheterization would be appropriate. The risk of bleeding, hematoma, vascular injury, myocardial infarction, CVA, renal failure and other concomitant complications were explained in detail. Patient understood this well and consented to proceed. In view of his abnormal kidney function possibility of contrast-induced nephropathy also was discussed with the patient in detail. This is understood well by the patient and the family. Status: Acute (2) Aortic valve sclerosis: May continue on the current medications Status: Acute (3) Essential (primary) hypertension: The blood pressure is currently within normal limits. May continue on the current medications. Status: Acute (4) Carotid stenosis: The carotid stenosis was mild. May not require any specific intervention at this point. Status: Acute Qualifiers: Laterality: bilateral Qualified Code(s): I65.23 - Occlusion and stenosis of bilateral carotid arteries (5) Dyslipidemia: We will continue on the current medications. Status: Acute Plan Based on the results of the cardiac catheterization, further management decisions will be made. We will keep him n.p.o. for now. 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
[2021-12-01] MEDS: sodium chloride 0.45% 1,000 ML 125 ML IV (14:22)
--- NOTE | 2021-12-01 14:27 | PC.NURSE ---
Resting in bed, no s/s of distress; denies CP
--- NOTE | 2021-12-01 16:14 | ECG_ITS ---
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 Measurements Intervals [place] Rate: 75 P: 249 MD: 181 QRS: -85 QRSD: 191 T: 81 QT: 469 QTc: 527 Interpretive Statements ELECTRONIC ATRIAL PACEMAKER ELECTRONIC VENTRICULAR PACEMAKER Compared to ECG 12/01/2021 12:18:38 No significant changes Electronically Signed On 12-01-2021 17:57:20 CDT by Festus Flores M.D. [id number]
[2021-12-01] MEDS: diphenhydrAMINE 50 mg Capsule PO (16:42)
[2021-12-01 16:59] LABS: Troponin 5 6HR 68.57 ng/L (0-15)
[2021-12-01 17:01] LABS: Troponin 5 6HR Delta -1.43 ng/L (0-12)
--- NOTE | 2021-12-01 17:29 | XACV_ITS ---
Exam Room: [facility] Ht: 180 cm Wt: 106 kg BSA: 2.33 m2 Gender: Male : 1950 Any Known Allergies: Other Exam Priority: Routine Procedure(s): Procedure Description: Diagnostic procedure Procedure Description: Left ventriculography Procedure Description: Coronary Angiography Juan Pablo GU; Diagnostic Cath Status: Urgent Diagnostic Findings * Left main is a medium to large caliber vessel which was found to have around 30% ostial narrowing. The distal left main was found to have around 98% tight stenosis. The circumflex artery appears to be flush occluded. * Left tenderness in the artery is a medium caliber vessel which appears to wrap around the LV apex minimally. Just before the first diagonal branch, there is around 70% lesion. Mid LAD was found to have minimal intimal irregularities. The first diagonal branch was found to have around 90% ostial stenosis.. * The left circumflex artery appears to be totally occluded at the ostium. Grade 3 right left collaterals were noted filling of the circumflex artery. The circumflex appears to be a codominant vessel. The mid circumflex was found to has moderate to severe diffuse disease. The third obtuse marginal branch appears to be a medium caliber vessel with mild diffuse disease.. * The right coronary artery is a medium caliber, dominant vessel which was found to have around 30% ostial narrowing with some calcification. The mid RCA was found to have around 70% tubular narrowing. Conclusions 1. This 71-year-old white male with history of hypertension, dyslipidemia, coronary artery disease, presenting with increasing episodes of chest pain. He had an abnormal myocardial perfusion imaging showing elevated transient ischemic dilatation, dilated LV cavity, and a small area of ischemia. In view of his worsening symptoms, an urgent cardiac catheterization was performed. The findings are as follows. 2. Critical distal left main disease of around 98%. Total occlusion of the left circumflex artery with a fairly good, grade 3 right to left collaterals. High-grade lesion in the first diagonal artery at the ostium. 70% mid RCA lesion. Mild disease in the other vessels. LV ejection fraction 53% by echocardiogram. LVEDP of 8 mmHg. Recommendations * The angiogram findings and my recommendations were discussed with the patient's family and with the patient. The patient and the family are willing to consider bypass surgery . Dr. Jimenez was consulted and will be seeing the patient tonight. Diagnostic RX Recommendation: CABG LV EDP: 8 mmHg Left Ventriculography Findings: * LV gram was not performed because of the limitations on dye usage. LVEDP was 8 mmHg. Pressures Phase:Rest AO : 113 / 66 ( 86 ) @ 2:02:23 PM 125 / 56 ( 80 ) @ 2:02:23 PM 124 / 53 ( 80 ) @ 2:02:23 PM 114 / 51 ( 73 ) @ 2:02:23 PM 103 / 55 ( 75 ) @ 6:56:00 PM LV : 122 / -2 / 8 @ 2:02:23 PM 98 / 0 / 6 @ 2:02:23 PM Valves Phase:DefaultPhase AV : 0.0 @ 7:02:23 PM AV Mean Gradient: 0.0 @ 7:02:23 PM 0.0 @ 7:02:23 PM Clinical Evaluation EBL: 5mL-10mL Procedural Details Procedure Consent Obtained. Admit Source: Emergency department. Pre-Procedure Time Out. Identified patient by full name and date of as verbalized by the patient/guarantor. Does the consent match the physician's order: Yes. Accurate & Complete Informed Consent: Yes. Inpatient/Outpatient History & Physical on Chart: Yes. If H&P is completed, is and addenduem needed: N/A; If yes, is the addendum complete: N/A. Visualize and Verify Site with Patient/Guarantor: N/A. Relevant Radiology Images available: N/A. Pre-op teaching completed and patient verbalized understanding. The risks, benefits, and alternatives of sedation and/or procedure were discussed by physician. The patient agrees to continue. Procedure started. [facility] Clinical Fraility Score: 3: Managing Well. 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 Chest Pain Symptom Assessment: Typical Angina Symptoms. Correct patient, site and procedure confirmed by cath team. PERRLA. Strong, equal hand catcher plug bilaterally. Lungs clear x 5 lobes. Current diagnosis: Chest Pain. IV Site on Arrival: 18 gauge in the right anticubital. IV Fluids: 0.9% NaCl at KVO. 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 Pre Procedural Pulses: right radial was 2+. Oxygen started at 2liters/min via nasal canula. right groin was prepped with chloroprep then draped in the usual sterile fashion. right radial was prepped with chloroprep then draped in the usual sterile fashion. Physician notified. Baseline sample Acquired. HR: 64 BPM. Physician arrived. Physician scrubbed in. Immediate Pre-Procedure Time Out. Correct Patient: Yes; Correct Procedure: Yes; Correct Site: Yes; Correct Patient Position: Yes; Correct Supplies: Yes; Dried Flammable Prep: Yes; Blood Products Available: N/A;. Lidocaine 1% infiltrated to the right radial. Arterial access obtained. A 5 english Osmar catheter in over wire. Wire removed. Hand injection performed through the catheter. Glidewire inserted through the catheter. Glidewire removed. Standard wire inserted. Catheter out. Radial access aborted due to torurosity. A TR Band was successful obtaining hemostatsis at the Right Radial artery insertion site. Lidocaine 1% infiltrated to the right groin. Arterial access obtained with micropuncture set. A 5 english JR4 catheter in over wire. Multiple views taken of right coronary artery. Catheter out. 6Fr short sheath exchanged for 23cm 6Fr sheath. A 5 english JL4 catheter in over wire. Catheter out. A 5 english JL3.5 catheter in over wire. Catheter out. A 6 english AL1 catheter in over wire. Pullback taken: LV 98/0,6; AO 125/56(80); Mean: 0mmHg, Peak to Peak: 0mmHg, SEP: 6sec/min; HR: 60 BPM; SpO2: 96%. Catheter out. A 5 english JL4 catheter in over wire. Catheter out. A 6 english JL4.5 catheter in over wire. Multiple views taken of left coronary artery. Catheter out. 6Fr 23cm sheath exchanged for 6Fr short sheath. A Suture was successful obtaining hemostatsis at the Right Femoral artery insertion site. Physician scrubbed out. Patient's family updated. Sheath(s) sutured into position with 2-0 silk and sterile 4x4's and Op-site applied over the site. No oozing or signs and symptoms of hematoma noted. Post Procedure: Pulses reassessed and unchanged. PERRLA. Strong, equal hand catcher plug bilaterally. No VTE prophylaxis required. Medication's Wasted: Nitro = 49.8 mg. Medication's Wasted: Heparin = 4500 u. Total IV fluids: 334 mL. Post-op diagnosis: Severe obstructive CAD. Complications: none. Estimated blood loss: 5mL-10mL. Responsiveness - Normal response to verbal stimuli; alert and oriented, PERRLA. Airway - Unaffected, no intervention required; spontaneous ventilation. Circulation: W/N/L, pulses unchanged. Nausea/Vomiting: No. Procedure completed. Patient transferred by bed to ICU. Vital chart was stopped. Access Site Site: Right Radial artery Sheath Size: 6 Fr Hemostasis Method: TR Band Hemostasis Success: Successful Site: Right Femoral artery Sheath Size: 6 Fr Hemostasis Method: Suture Hemostasis Success: Successful Procedure Medications Start: 5:42 PM Stop: 5:42 PM Medication: 0.9% Saline Amount: 250 ml Route: I.V. bolus Start: 5:42 PM Stop: 5:42 PM Medication: Versed Amount: 1 mg Route: I.V. Start: 5:42 PM Stop: 5:42 PM Medication: Fentanyl Amount: 50 mcg Route: I.V. Start: 5:48 PM Stop: 5:48 PM Medication: Nitrogylcerin Amount: 200 mcg Start: 6:24 PM Stop: 6:24 PM Medication: Versed Amount: 1 mg Route: I.V. Start: 6:34 PM Stop: 6:34 PM Medication: Versed Amount: 1 mg Route: I.V. Start: 6:00 PM Stop: 6:00 PM Medication: Versed Amount: 1 mg Route: I.V. Start: 6:07 PM Stop: 6:07 PM Medication: Heparin Amount: 1500 units Route: I.V. I, the attending physician, have reviewed and verified all procedure medications. Yes, all medications given per verbal order History/Risk Factors Hypertension: No Dyslipidemia: No Peripheral Arterial Disease (PAD): No Myocardial Infarction (MN): No Obesity: No Renal Disease: No Tobacco Use: Current/Recent(w/in 1 year) Prior Interventions PCI: No CABG: No Valve Surgery: No Report Signatures Finalized by Dr Maribel Almeida MD [facility] on 12/01/2021 07:40 PM
--- NOTE | 2021-12-01 19:51 | P.ANESASSM_ITS ---
Pre-Anesthetic Assessment Height/Weight: Height 1.8 m Weight 105.687 kg Temp Pulse Resp BP Pulse Ox 98.1 F 61 18 121/64 96 12/01/21 17:50 12/01/21 17:50 12/01/21 17:50 12/01/21 17:50 12/01/21 17:50 Preop Diagnosis: CAD Operation Date: 12/02/21 08:30 Proposed Procedures p CABG(Not Applicable) - Bharathi Jimenez MD Familial anesthetic complications: Denies Was Beta Maia taken within 24 hours: N/A Was Clonidine taken within 24 hours: N/A Social Tobacco and No alcohol Exam alert, oriented x 3, clear to auscultation bilaterally and regular rate & rhythm Airway Submandibular: within normal limits Cervical ROM: within normal limits Mallampati: Class II Dentition: false Pulmonary Denies BEN CXR 12/01/21 No acute disease per report Had COVID 06/2021, did not require intubation. Since July has had MINAYA w/ chest pain limiting functional capacity CV/HEM Arrythmia (Atrial pacemaker ), Coronary Artery Disease, Myocardial Infarction and Peripheral Vascular Disease Aortic valve sclerosis Carotid Stenosis Pacemaker Hgb 15.5 Plts 510 Cath Report 12/01/21 Diagnostic Findings ? * Left main is a medium to large caliber vessel which was found to have around 30% ostial narrowing.? The distal left main was found to have around 98% tight stenosis.? The circumflex artery appears to be flush occluded. ? * Left tenderness in the artery is a medium caliber vessel which appears to wrap around the LV apex minimally.? Just before the first diagonal branch, there is around 70% lesion.? Mid LAD was found to have minimal intimal irregularities.? The first diagonal branch was found to have around 90% ostial stenosis.. ? * The left circumflex artery appears to be totally occluded at the ostium. Grade 3 right left collaterals were noted filling of the circumflex artery. The circumflex appears to be a codominant vessel. The mid circumflex was found to has moderate to severe diffuse disease. The third obtuse marginal branch appears to be a medium caliber vessel with mild diffuse disease.. ? * The right coronary artery is a medium caliber, dominant vessel which was found to have around 30% ostial narrowing with some calcification.? The mid RCA was found to have around 70% tubular narrowing. Conclusions ? 1. This 71-year-old white male with history of hypertension, dyslipidemia, coronary artery disease, presenting with increasing episodes of chest pain. He had an abnormal myocardial perfusion imaging showing elevated transient ischemic dilatation, dilated LV cavity, and a small area of ischemia. In view of his worsening symptoms, an urgent cardiac catheterization was performed. The findings are as follows. ? 2. Critical distal left main disease of around 98%.? Total occlusion of the left circumflex artery with a fairly good, grade 3 right to left collaterals. High-grade lesion in the first diagonal artery at the ostium.? 70% mid RCA lesion.? Mild disease in the other vessels.? LV ejection fraction 53% by echocardiogram.? LVEDP of 8 mmHg. Myocardial Perfusion Scan 11/27/21 IMPRESSIONS ?1.? Myocardial perfusion imaging revealing areas of persistent decreased uptake ?in the inferior wall, anteroseptal and apical regions with subtle areas of ?reversibility in the apical lateral region, suggestive of myocardial scarring? ?in the distribution of the all the 3 coronary arteries.with some subtle areas ?of ischemia in the distribution of the circumflex artery. ?2.? Diminished LV ejection fraction of 37%.? ?3.? Multiple wall motion normalities as mentioned above. ?4.? Moderately dilated LV cavity with an end-systolic volume of 127 ml ?5.? Elevated transient ischemic dilatation ratio(1.22)? may suggest endocardial ?ischemia.? Clinical correlation is recommended Carotid Doppler Study 01/2021 CONCLUSIONS ?Moderate heterogeneous plaques bilaterally at the bifurcations ?and proximal internal carotid arteries with Doppler features ?consistent with less than 50% stenosis. ?Intimal thickening in the common carotid arteries bilaterally. ?Compared to the study from 01/24/2019, there may not be a ?significant change TTE 11/24/21 CONCLUSIONS ?Normal left ventricular size and systolic function, EF 53 %. ?Mild left ventricular hypertrophy.? Hypokinetic mid and apical ?septum and apical inferior wall segments. Grade I/IV diastolic ?dysfunction (abnormal relaxation filling pattern), normal to ?mildly elevated filling pressures. ?Thickened aortic valve. ?Trace tricuspid valve regurgitation. ?Estimated pulmonary artery peak systolic pressure 38 mm ofHg ?There is no pericardial effusion. ?There are no intracardiac masses. ?Compared to the study from a 04/17/2018, the wall motion ?abnormalities appear to be new STEPHANIE Na 134 BUN 32 Cr 1.4 Hepatic None reported GI Gastroesophageal Reflux Disease (Well controlled ) Metabolic None reported Musc/skel Lower Back Pain Neuropsych None reported Anesthetic Plan ASA status: 4 (71 year old male smoker with MINAYA, CP, atrial pacemaker, HTN, carotid stenosis, with near to complete occlusion of LAD an Cx CAD and 70% occlusion of RCA) Anesthesia: Anesthesia Evaluation and General (GETA, arterial line, central line, PA Cath, KIRSTIE) Other: Anesthetic plan discussed with patient, patient's , daughter, and son in law. We discussed risk and benefits of general anesthesia and anesthetic requirements of central line, arterial line, KIRSTIE, PA catheter. We discussed risk including PONV, sore throat (sometimes severe), corneal abrasion, positioning and peripheral nerve injuries, life threatening allergic reaction, PTx, bleeding, nerve injury during CVL placement, aspiration, stroke, heart attack, , and rare incidences of recall. We discussed plan to return to ICU intubated where he will be weaned from the ventilator. Patient consents to proceed with general anesthesia, KIRSTIE, CVL, PA catheter, and arterial line. Risk of > 500 ml blood loss (7ml/kg in children): No Medications/Allergies Home Medications Medication Instructions Recorded Confirmed Last Taken Type amlodipine 10 mg tablet 10 mg PO DAILY@12 tab 06/25/19 12/01/21 Unknown History aspirin 81 mg tablet,delayed 81 mg PO DAILY@12 tab 06/25/19 12/01/21 Unknown History release (Adult Low Dose Aspirin) rosuvastatin 20 mg tablet 30 mg PO BEDTIME tab 06/25/19 12/01/21 Unknown History nitroglycerin 0.4 mg sublingual 0.4 mg SUBLINGUAL Q5M PRN 30 Days 11/17/21 12/01/21 Unknown Rx tablet #30 tab lisinopril 20 1 tab PO QAM 12/01/21 12/01/21 Unknown History mg-hydrochlorothiazide 25 mg tablet multivitamin 1 tab PO DAILY PRN 12/01/21 12/01/21 Unknown History omega-3 fatty acids 1,000 mg 2,000 mg PO DAILY 12/01/21 12/01/21 Unknown History capsule Allergies Allergy/AdvReac Type Severity Reaction Status Date / Time zolpidem [From Ambien] Allergy Intermediate hallucinati Verified 12/01/21 12:07 ons aspirin Allergy unk Verified 12/01/21 12:07 Current Medications Generic Name Dose Route Start Last Admin Trade Name Dilip PRN Reason Stop Dose Admin Sodium Chloride 1,000 mls @ 125 mls/hr 12/01/21 14:30 12/01/21 14:22 Sodium Chloride 0.45% IV 125 mls/hr .Q8H RELL Administration PFSH Anesthesia Medical History Aortic valve sclerosis Atherosclerotic heart disease of [place] coronary artery without angina pectoris Atherosclerotic heart disease of [place] coronary artery without angina pectoris Carotid stenosis Dyslipidemia Essential (primary) hypertension Pacemaker Family History Mother CAD (coronary artery disease) Brother CAD (coronary artery disease) Family/Other CAD (coronary artery disease) Sister Cancer Denies family history of Diabetes Clotting disorder Dementia Chronic kidney disease (CKD) Suicide Anesthesia complication Bleeding disorder Lung disease Stroke Social History Smoking and tobacco status: former smoker Alcohol intake: never Data Anesthesia : 12/01/21 11:35 12/01/21 10:30 Short CBC 12/01/21 Range/Units 11:35 WBC 8.6 (4.0-10.0) 10^3/uL Hgb 15.5 (11.7-16.6) g/dL Hct 48.6 (42.0-52.0) % MCV 81.5 (80-94) fl Plt Count 510 H (130-400) 10^3/cmm Neut % (Auto) 73.4 % Neut # (Auto) 6.28 (1.8-7.7) 10^3/uL BMP 12/01/21 10:30 Sodium 134 L Potassium 4.0 Chloride 100 Carbon Dioxide 21 L BUN 32 H Creatinine 1.4 H Glucose 97 Calcium 9.5 Cardiac Enzymes 12/01/21 12/01/21 12/01/21 Range/Units 10:30 12:30 16:34 Troponin T Baseline 70 H (0-15) ng/L Troponin T 120 Minute 69.74 H (0-15) ng/L Delta Troponin T -0.26 L (0-10) ABS# Troponin T Hi Sens 6Hr 68.57 H (0-15) ng/L Troponin T Hi Sens 6Hr Delta -1.43 L (0-12) ng/L Cardiac Studies: Echocardiogram 11/24/21 Sestamibi Stress Test (Cardiology) 11/27/21
--- NOTE | 2021-12-01 20:18 | USCV_ITS ---
Martín Nogueira Age: 71 Gender: M : 1950 Exam Date: 12/01/2021 21:39 Ordering Phys: Bharathi Jimenez MD ([email or web address] [place] Technologist: [email or web address] [place] [facility] [place]ication: Saphenous vein mapping for planned CABG RIGHT LEFT LOWER EXTREMITY Diameter Diameter (cm) (cm) 0.28 High Thigh 0.37 0.27 Mid Thigh 0.32 0.27 Above Knee 0.36 0.28 Below Knee 0.23 0.22 Mid Calf 0.13 0.33 Ankle 0.27 RIGHT LEFT UPPER EXTREMITY The Upper Extremity section is not evaluated at this time Findings Right greater saphenous vein mapped and measured as above. Left greater saphenous vein mapped and measured as above. The veins were found to be easily compressible with no evidence of thrombosis Conclusions Near normal caliber patent veins bilaterally, with no evidence of thrombosis. Dr Maribel Almeida MD FAC (Electronically Signed) Final Date: 02 December 2021 08:45 S
--- NOTE | 2021-12-01 20:20 | PM.CONSULT ---
Providers/Reason For Consult Consulting Physician/Specialty*: Dr. Jimenez/cardiothoracic surgery Reason for Consult*: Severe coronary artery disease with left main stenosis Requesting Physician: Dr. Almeida/cardiology Attending Physician: Maribel Almeida MD Primary Care Provider: Lucy Puente MD History of Present Illness History of Present Illness Martín Nogueira is a 71 year old male admitted earlier today with chest pain after presenting to the [facility] clinic earlier today. He has had progressive chest discomfort for the past few weeks. He has had a prior transthoracic echocardiogram with a EF calculated 52% though a recent myocardial perfusion study calculated his ejection fraction in the 30% range. He had multiple areas of defects. He was admitted after presentation to the emergency department. He states he can walk only short distances without increasing dyspnea and a burning sensation across his chest and chest discomfort. He has a long history of substantial tobacco use for numerous years. He was treated for COVID-pneumonia in June on outpatient basis. His also had COVID pneumonia in June as well. He denies any prior surgeries. He states he does get substantial gastric distress with aspirin if it is not enteric-coated. He reports no other allergies. Presently, he is pain-free in the ICU and ICU bed 1. He had a left heart catheterization earlier today by Dr. Almeida who contacted me by phone while the patient is on the cath table. He described a 98% left main stenosis and a very tight RCA lesion and what appears to be total occlusion of the circumflex vessel. LV gram was not done. I recommended placement of a balloon pump at that time and the patient was being considered for coronary bypass grafting. Dr. Almeida requested that does not be put in into latch asked to talk to the family. He has had a previous dual-lead pacemaker placed by Dr. Almeida a few years ago due to bradycardia with a heart rate in the 30s according to his . I have reviewed his chest x-ray from today as well as from June. There does appear to be some mild increase in his cardiac silhouette though no jill effusions or infiltrates. Myocardial perfusion study of November 27: ?1.? Myocardial perfusion imaging revealing areas of persistent decreased uptake ?in the inferior wall, anteroseptal and apical regions with subtle areas of ?reversibility in the apical lateral region, suggestive of myocardial scarring? ?in the distribution of the all the 3 coronary arteries.with some subtle areas ?of ischemia in the distribution of the circumflex artery. ?2.? Diminished LV ejection fraction of 37%.? ?3.? Multiple wall motion normalities as mentioned above. ?4.? Moderately dilated LV cavity with an end-systolic volume of 127 ml ?5.? Elevated transient ischemic dilatation ratio(1.22)? may suggest endocardial ?ischemia.? Clinical correlation is recommended Note that his ejection fraction at 37% by perfusion study is substantially different from what is described as over 50% by transthoracic echo. Review of Systems Const: Reports: fatigue; Denies: fever(s) or chills Card: Reports: chest pain and dyspnea on exertion; Denies: orthopnea or leg pain with exertion Resp: Reports: non-productive cough; Denies: dyspnea or hemoptysis GI: Denies: abdominal pain, nausea, vomiting, hematemesis or coffee ground emesis : Denies: flank pain or difficulty urinating Musc: Denies: neck pain or back pain Neuro: Denies: headache(s), numbness in extremities, weakness in extremities or sensory changes Endo: Denies: polyuria or polydipsia Raimundo/Lymph: Denies: easy bruising or easy bleeding Medications/Allergies Home Medications Medication Instructions Recorded Confirmed Last Taken Type amlodipine 10 mg tablet 10 mg PO DAILY@12 tab 06/25/19 12/01/21 Unknown History aspirin 81 mg tablet,delayed 81 mg PO DAILY@12 tab 06/25/19 12/01/21 Unknown History release (Adult Low Dose Aspirin) rosuvastatin 20 mg tablet 30 mg PO BEDTIME tab 06/25/19 12/01/21 Unknown History nitroglycerin 0.4 mg sublingual 0.4 mg SUBLINGUAL Q5M PRN 30 Days 11/17/21 12/01/21 Unknown Rx tablet #30 tab lisinopril 20 1 tab PO QAM 12/01/21 12/01/21 Unknown History mg-hydrochlorothiazide 25 mg tablet multivitamin 1 tab PO DAILY PRN 12/01/21 12/01/21 Unknown History omega-3 fatty acids 1,000 mg 2,000 mg PO DAILY 12/01/21 12/01/21 Unknown History capsule Allergies Allergy/AdvReac Type Severity Reaction Status Date / Time zolpidem [From Ambien] Allergy Intermediate hallucinati Verified 12/01/21 12:07 ons aspirin Allergy unk Verified 12/01/21 12:07 PFSH Acute PFSH: Medical History Aortic valve sclerosis Atherosclerotic heart disease of [place] coronary artery without angina pectoris Atherosclerotic heart disease of [place] coronary artery without angina pectoris Carotid stenosis Dyslipidemia Essential (primary) hypertension Pacemaker Family History Mother CAD (coronary artery disease) Brother CAD (coronary artery disease) Family/Other CAD (coronary artery disease) Sister Cancer Denies family history of Diabetes Clotting disorder Dementia Chronic kidney disease (CKD) Suicide Anesthesia complication Bleeding disorder Lung disease Stroke Social History Smoking and tobacco status: former smoker Alcohol intake: never Vitals/I&O/Wt Last Vital Signs Temp 98.1 F 12/01/21 17:50 Pulse 61 12/01/21 17:50 Resp 18 12/01/21 17:50 BP 121/64 12/01/21 17:50 Pulse Ox 96 12/01/21 17:50 Weight last 48 hrs Weight 233 lb Physical Exam Const: COMMON NORMALS: no acute distress, average body habitus and patient oriented x3 HENMT: COMMON NORMALS: normocephalic, atraumatic, hearing grossly normal bilaterally, external ears normal and Normal external nose present HEAD & SCALP: normocephalic and atraumatic NOSE: Normal external nose present EXTERNAL EAR: Yes external ears normal Neck/C-Spine: COMMON NORMALS: no lymphadenopathy and No carotid bruits Chest: COMMONS NORMALS: normal inspection of the chest and normal palpation of entire chest wall Resp: COMMON NORMALS: normal respiratory effort, No retractions, No use of accessory muscles and clear to auscultation bilaterally AUSCULTATION: clear to auscultation bilaterally Cardio: COMMON NORMALS: regular rate, regular rhythm, S1 normal heart sound present and No murmurs present (Cardio) RATE: regular rate RHYTHM: regular rhythm HEART SOUNDS: S1 normal heart sound present GI: COMMON NORMALS: Normal to inspection, nondistended, normoactive bowel sounds present Extremity: COMMON NORMALS: no clubbing, cyanosis or edema Neuro: COMMON NORMALS: patient oriented x3, no focal motor deficits, no sensory deficits noted and gait normal (Unable to assess as patient is in supine position in ICU bed.) Psych: COMMON NORMALS: mental status grossly normal, Normal thought process present, cooperative and normal affect THOUGHT PROCESS: Normal thought process present Data : 12/01/21 11:35 12/01/21 10:30 A&P Assessment and plan (1) Left main coronary artery disease: Mr. Nogueira is a 71-year-old gentleman with heavy tobacco use and severe coronary artery disease with greater than 95% left main coronary artery stenosis, total occlusion of the circumflex vessel and a greater than 90% mid RCA lesion. He is ejection fraction is reduced and I think is probably lower than the 50% described on recent echo. He has a long history of continued heavy tobacco use. Presently, he is pain-free. I reviewed with his and daughter the actual cardiac catheterization study I described the pathology. The recommendation to consider coronary artery bypass grafting was frankly discussed. Rationale for this was carefully reviewed. We had a lengthy conversation about options to include therapy here or transfer to another center of their choice. Details and risks of CABG were carefully and frankly reviewed. Risks discussed include the possibility of , stroke, heart attack, major bleeding possibly requiring the need to reopen chest, infection, pneumonia, organ failure, failure to benefit, early closure of the bypass grafts, inability to complete the procedure, prolonged hospitalization, blood clots to lungs or other organs, need for further interventions, continued pain after surgery, need for future surgery, and possible long-term bleeding risk secondary to medication requirements. All questions were answered. Patient and family stated understanding. Presently they are discussing probably the direction they would like to proceed. We will continue with our normal preoperative evaluation in preparation for possible CABG first thing in the morning. The surgery department has been gracious enough to adjust the schedule to allow this to occur. He has increased risk related to left main stenosis, decreased ejection fraction, COVID-pneumonia in June, renal insufficiency with recent contrast, and long history for tobacco use. Preoperative intra-aortic balloon pump would be of benefit if patient and family decide to proceed with CABG. Status: Acute Consult Attestations Medical Necessity Statement: High-grade left main coronary artery stenosis with unstable angina Time Spent in Patient Care: Greater than 35 minutes Coding Level of Care Code Acute Station Worker for Jose Pandey Diagnoses Left main coronary artery disease I25.10
[2021-12-01] MEDS: sodium chloride 0.9% 1,000 ML 100 ML IV (21:05)
[2021-12-01 22:00] LABS: Basophils # 0.1 10^3/uL (0.0-0.1); Basophils % 1.2 %; Eosinophils # 0.1 10^3/uL (0.0-0.8); Eosinophils % 1.3 %; Hematocrit 47.3 % (42.0-52.0); Hemoglobin 15.4 g/dL (11.7-16.6); Lymphocytes # 1.3 10^3/uL (0.8-4.8); Lymphocytes % 12.7 %; Mean Corpuscular HGB Conc 32.6 g/dL (30.0-36.0); Mean Corpuscular Hemoglobin 26.1 pg (28.0-34.0); Mean Corpuscular Volume 80.2 fl (80-94); Mean Platelet Volume 10.7 fL (7.4-10.4); Monocytes # 0.7 10^3/uL (0.2-0.9); Monocytes % 7.4 %; Neutrophils # 7.69 10^3/uL (1.8-7.7); Nucleated Red Blood Cells % 0 %; Platelet Count 518 10^3/cmm (130-400); Red Cell Distribution Width 15.1 % (12.1-15.1)
[2021-12-01 22:13] LABS: INR 1.03 (0.8-1.2); Partial Thromboplastin Time 31.9 SECONDS (23.9-36.7)
[2021-12-01 22:33] LABS: Alanine Aminotransferase 16 U/L (0-41); Albumin Level 4.2 g/dL (3.5-5.2); Alkaline Phosphatase 54 IU/L (40-130); Anion Gap 15.9 (5-19); Aspartate Amino Transferase 14 U/L (0-40); Blood Urea Nitrogen 33 mg/dL (8-23); Carbon Dioxide 20 mmol/L (22-29); Chloride 102 mmol/L (98-107); Creatinine Clr Calc Pharmacy 60.7325; Free T4 Free Thyroxine 1.14 ng/dL (0.82-1.77); Globulin 3.3 g/dL (1.3-4.6); Glomerular Filtration Rate 50.1 mL/min (90-130); Glucose 122 mg/dL (65-115); Osmolality Calculated 287 mOsm/kg (285-295); Potassium 3.9 mmol/L (3.5-5.1); Sodium 134 mmol/L (136-145); Thyroid Stimulating Hormone 2.15 uIU/mL (0.27-4.20); Total Bilirubin 0.6 mg/dL (0.15-1.2); Total Protein 7.5 g/dL (6.6-8.7)
[2021-12-01 22:57] LABS: Add Urine Microscopic? NO; Charge for UA Resulting for Rev
[2021-12-01 23:01] LABS: Bilirubin Urine Neg (Negative); Blood Urine Neg (Negative); Glucose Urine UA Norm (Normal); Ketones Urine Negative (Negative); Leukocyte Esterase Urine Negative (Negative); Nitrate Urine Negative (Negative); Protein Urine Neg (Negative); Urine Appearance Clear (CLEAR); Urine Color Yellow (Yellow); Urobilinogen Urine Norm (Negative); pH Urine 5 (5-7)
[2021-12-01] MEDS: ALPRAZolam 0.5 mg Tablet 0.25 MG PO (23:14)
[2021-12-02] VITALS (49 sets, daily range): BP systolic 68–175; BP diastolic 43–104; PULSE 62–92; RESP 14–19; TEMP 37.1–37.7; O2SAT 90–100
[2021-12-02 04:22] LABS: Alanine Aminotransferase 16 U/L (0-41); Albumin Level 4.1 g/dL (3.5-5.2); Alkaline Phosphatase 56 IU/L (40-130); Anion Gap 14.9 (5-19); Aspartate Amino Transferase 14 U/L (0-40); Blood Urea Nitrogen 32 mg/dL (8-23); Calcium 9.3 mg/dL (8.5-10.5); Carbon Dioxide 22 mmol/L (22-29); Chloride 104 mmol/L (98-107); Creatinine Clr Calc Pharmacy 60.7325; Globulin 3.1 g/dL (1.3-4.6); Glomerular Filtration Rate 50.1 mL/min (90-130); Glucose 138 mg/dL (65-115); Osmolality Calculated 293 mOsm/kg (285-295); Potassium 3.9 mmol/L (3.5-5.1); Sodium 137 mmol/L (136-145); Total Bilirubin 0.5 mg/dL (0.15-1.2); Total Protein 7.2 g/dL (6.6-8.7)
--- NOTE | 2021-12-02 05:29 | PM.PN ---
Subjective Subjective: Mr. Nogueira has no complaints this morning. Denies chest pain. No arrhythmias reported by nurses. Apparently, he did not receive preoperative respiratory therapy instructions. Family is at bedside. Vitals/I&O/Wt Last Vital Signs Temp 98.0 F 12/01/21 19:15 Pulse 61 12/01/21 23:45 Resp 15 12/01/21 23:45 BP 155/87 12/01/21 23:45 Pulse Ox 91 12/01/21 23:45 12/01/21 12/01/21 12/02/21 14:59 22:59 06:59 Intake Total 200 / 200 Output Total 600 / 600 Balance -400 / -400 Weight last 48 hrs Weight 233 lb Physical Exam Const: COMMON NORMALS: patient oriented x3 Resp: COMMON NORMALS: normal respiratory effort and clear to auscultation bilaterally AUSCULTATION: clear to auscultation bilaterally Cardio: COMMON NORMALS: regular rate, regular rhythm, S1 normal heart sound present and No murmurs present (Cardio) RATE: regular rate RHYTHM: regular rhythm HEART SOUNDS: S1 normal heart sound present GI: COMMON NORMALS: Normal to inspection, nondistended, normoactive bowel sounds present Extremity: COMMON NORMALS: no clubbing, cyanosis or edema NARRATIVE EXTREMITY EXAM: Right groin sheath remains in place. Neuro: COMMON NORMALS: patient oriented x3, no focal motor deficits and no sensory deficits noted Data : 12/01/21 21:25 12/02/21 03:10 A&P Assessment and plan (1) Left main coronary artery disease: We will plan to proceed with CABG this morning. Apparently, Mr. Nogueira will not be getting the intra-aortic balloon pump in the [employer] this morning, therefore we will place it in the operating room theater. Given his 90% left main stenosis, I feel it important to have the balloon pump in position during the early phases of the surgery. This will not be done with imaging due to space constraints in the surgical suite. I did review with Mr. Nogueira and his family the educational written materials and the general plans for the day. We will keep in close contact with them throughout the procedure. Plan: I will continue to follow Mr. Nogueira until midtuesday, at which time I will be off service. Will continue postoperative care through our cardiology service. As always, I appreciate their expertise and oversight. Status: Acute Attestations Medical Necessity Statement*: High-grade left main coronary artery stenosis with total occlusion of the circumflex vessel and high-grade mid vessel RCA lesion. Coding Level of Care Code Acute [employer] Business Analyst for Jose Pandey Diagnoses Left main coronary artery disease I25.10
--- NOTE | 2021-12-02 06:25 | PM.MISC ---
Miscellaneous Note Purpose of Documentation: Insertion of intra-aortic balloon pump counterpulsation device Note: Name of procedure: Balloon pump insertion Indications: Patient has severe three-vessel coronary artery disease and left main coronary disease. He is being prepared for coronary bypass surgery this morning. Insertion of balloon pump requested by the surgeon. Description of procedure: Patient was brought to the Packing Attendant and prepped and draped in the standard fashion. Lidocaine was used for local anesthesia. The existing sheath was removed and the balloon pump sheath replaced with some difficulty due to the tortuous iliac vessels. The balloon pump was inserted with the tip at the emilia. It was connected and turned on without any difficulty. The entire device was sutured in place. There were no complications.
--- NOTE | 2021-12-02 06:38 | ANES.PAUD2 ---
Pre-Anesthetic Update Pre-Anesthetic Assessment: Date of Surgery/Procedure: 12/02/21 Preop Diagnosis: CAD Proposed Procedure: Operation Date: 12/02/21 07:00 Proposed Procedures p CABG(Not Applicable) - Bharathi Jimenez MD Changes from Pre-Anesthetic Assessment: Patient taken to dye lab technician for balloon pump. Patient consented 12/01/21 for surgery, however form not signed. Consent signed by spouse today. Labs Last 48hrs: Short CBC 12/01/21 12/01/21 Range/Units 11:35 21:25 WBC 8.6 10.0 (4.0-10.0) 10^3/ uL Hgb 15.5 15.4 (11.7-16.6) g/dL Hct 48.6 47.3 (42.0-52.0) % MCV 81.5 80.2 (80-94) fl Plt Count 510 H 518 H (130-400) 10^3/c mm Neut % (Auto) 73.4 77.0 % Neut # (Auto) 6.28 7.69 (1.8-7.7) 10^3/u L BMP 12/01/21 12/01/21 12/02/21 10:30 21:25 03:10 Sodium 134 L 134 L 137 Potassium 4.0 3.9 3.9 Chloride 100 102 104 Carbon Dioxide 21 L 20 L 22 BUN 32 H 33 H 32 H Creatinine 1.4 H 1.4 H 1.4 H Glucose 97 122 H 138 H Calcium 9.5 9.0 9.3 Cardiac Enzymes 12/01/21 12/01/21 12/01/21 Range/Units 10:30 12:30 16:34 Troponin T Baselin e 70 H (0-15) ng/L Troponin T 120 Min chalkyitsik 69.74 H (0-15) ng/L Delta Troponin T -0.26 L (0-10) ABS# Troponin T Hi Sens 6Hr 68.57 H (0-15) ng/L Troponin T Hi Sens 6Hr Delta -1.43 L (0-12) ng/L Liver Function 12/01/21 12/02/21 Range/Units 21:25 03:10 Total Bilirubin 0.6 0.5 (0.15-1.2) mg/dL Direct Bilirubin 0.20 (0.00-0.30) mg/d L AST 14 14 (0-40) U/L ALT 16 16 (0-41) U/L Alkaline Phosphata se 54 56 (40-130) IU/L Albumin 4.2 4.1 (3.5-5.2) g/dL Urine 12/01/21 Range/Units 22:40 Urine Color Yellow (Yellow) Urine Appearance Clear (CLEAR) Urine pH 5 (5-7) Ur Specific Gravit y 1.010 (1.005-1.030) Urine Protein Neg (Negative) Urine Glucose (UA) Norm (Normal) Urine Ketones Negative (Negative) Urine Nitrate Negative (Negative) Urine Bilirubin Neg (Negative) Ur Leukocyte Vernell ase Negative (Negative) Blood Bank 12/01/21 21:25 Blood Type O Positive Rho(D) Type Positive Antibody Screen Negative Coags 12/01/21 21:25 PT 13.80 INR 1.03 APTT 31.9 Vitals: Temperature 98.7 F 12/02/21 03:00 Temperature Source Axillary 12/02/21 03:00 Pulse Rate 66 12/02/21 05:00 Pulse Rhythm 12/01/21 20:08 Pulse Strength 3+ Normal 12/01/21 22:00 Respiratory Rate 16 12/02/21 05:00 Respiratory Effort Non-Labored 12/01/21 22:00 Respiratory Depth Normal 12/01/21 22:00 Respiratory Patter n 12/01/21 20:08 Blood Pressure 150/76 12/02/21 06:00 Blood Pressure Kelly n 100 12/02/21 06:00 Blood Pressure Pos ition Semi Fowlers 12/01/21 14:27 Pulse Oximetry 91 12/02/21 05:00 Oxygen Delivery Me thod 12/01/21 20:08 Sepsis Recent Feve r Within 48 Hours No 12/01/21 14:27 Sepsis New/Unexpla ined Change in Men leonardo Status No 12/01/21 09:58 Exam: Pre-Anes Outpt Exam: alert, oriented x 3, clear to auscultation bilaterally and regular rate & rhythm Cardiac Studies: Echocardiogram 11/24/21 Sestamibi Stress Test (Cardiology) 11/27/21
--- NOTE | 2021-12-02 07:12 | PC.NURSE ---
Patient clipped and HCG bath given, linens changed.
[2021-12-02] MEDS: cefUROXime 1,500 MG in sodium chloride 0.9% (plus) 50 ML 100 MG IV ×2 (08:15→15:15)
--- NOTE | 2021-12-02 09:22 | SUR.OPER ---
0866 Family (Maria Luz) notified of surgery start and pt condition. All questions answered.
--- NOTE | 2021-12-02 10:11 | PC.CHAP ---
Pastoral Care Encounter/Spiritual Assessment Type of Contact [] Declined sports manager visit [] Patient/Family/Request visit [] Outpatient visit [] Follow-up visit [] Physician referral [] Code/Alert [x] Routine visit [] Staff referral [] Actively dying [] Patient sleeping [x] Family support [] [] Out of room [] Palliative care [] [] Receiving care in room [] Pre-surgical visit [] Trauma [] Long length of stay [x] ICU visit [x] Other: just complete surgery... met with family Relational/Emotional Strength [] Patient feels connected with others/family/visitors/staff [] Distress [] Loneliness/isolation [] Abandonment Spirituality of Patient [] Person of Giulia [] Attends Yarsanism of their Giulia [] Believes in Prayer [] Reads Bible or Muslim materials [] There are Spiritual issues to be addressed Senior Human Resources Representative Interventions [x] Prayer [] Active listening [] Non-anxious presence [] Spiritual/emotional support [] Crisis/trauma care [] Spiritual counseling [] Bereavement support [] Provided bereavement packet [] Provided Bible/devotional materials [] Provided toy/stuffed animal, coloring book to patient or family member [] Provided Communion [] Anointing/[place] [] Salvation [x] Completed spiritual assessment [] Other: Impact on Illness or Injury [] Angry [] Fearful [] Anxious [] Often cries [] Exhaustion [] Unable to work [] Unable to attend congregational [] Unable to walk/stand [] Unable to read [] Unable to drive [] Unable to eat/drink [] Unable to sleep [] Unable to be with family [] Patient intubated [] Other: Summary Time spent with patient
--- NOTE | 2021-12-02 11:12 | SUR.OPER ---
1109 pt on bypass, family and icu notified
--- NOTE | 2021-12-02 14:30 | SUR.OPER ---
1315 family notified of surgery progress
--- NOTE | 2021-12-02 14:31 | SUR.OPER ---
1424 pt off bypass, family and icu notified
--- NOTE | 2021-12-02 16:09 | XRR_ITS ---
PROCEDURE INFORMATION: Exam: XR Chest Exam date and time: 12/02/2021 5:15 PM Age: 71 years old Clinical indication: Device placement; Other: Cabg; Prior surgery; Surgery date: Post-operative (0-2 days); Additional info: Post op cabg TECHNIQUE: Imaging protocol: XR of the chest. Views: 1 view. COMPARISON: CR XR chest 1V portable [id number] 12/01/2021 10:22 AM FINDINGS: Tubes, catheters and devices: Endotracheal tube terminates approximately 7 cm above the emilia. Enteric tube passes into the stomach. Mediastinal and pleural drains are in place. Right IJ central venous catheter terminates in the region of the mid SVC. Right IJ [place] catheter terminates in the region of the right main pulmonary artery. Cardiac rhythm maintenance device is in place. Lungs: Pulmonary vascular congestion. Mild left basilar atelectasis. Pleural spaces: No substantial pleural effusion. No pneumothorax. Heart/Mediastinum: Postoperative changes of CABG. Bones/joints: Unremarkable. XR/XR chest 1V portable [id number] IMPRESSION: 1. Expected postoperative changes of CABG with pulmonary vascular congestion and mild left basilar atelectasis. 2. Expected positioning of support apparatus as detailed above.
--- NOTE | 2021-12-02 16:15 | SUR.OPER ---
8447 family updated on pt condition, surgery progress. no needs stated at this time
--- NOTE | 2021-12-02 16:35 | SUR.OPER ---
1630 report given to selvin coates, all questions answered.
--- NOTE | 2021-12-02 17:44 | PC.NURSE ---
Here from OR To icu from OR. OR team accompanied. ET tube and OG tube noted. wound vac to sternum, chest tubes noted x's 4. cabrera to gravity. IABP to the right groin 1:2.
[2021-12-02] MEDS: DOBUTamine drip 500 MG/250 ML PREMIX 6.34 MG IV (18:00)
[2021-12-02 18:08] LABS: Glucose Point of Care 124 mg/dL (70-110)
[2021-12-02 18:13] LABS: ABG PCO2 51.1 mmHg (35-45); Arterial Blood Gas Hematocrit 34.2 % (42-52); Base Excess ABG -9.6 mmol/L (-2.0-2.0); Blood Gas Operator Identificat CAK; Blood Gas Sample Site ARTLINE; Blood Gas Sample Type Arterial; Blood Gas Tidal Volume 0.55; HCO3 ABG 18.8 mmol/L (22-26); Oxygen Device VENT
[2021-12-02] MEDS: propofol 1,000 MG/100 ML INJ 3.17 MG IV (18:25)
--- NOTE | 2021-12-02 18:25 | ECG_ITS ---
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 Measurements Intervals [place] Rate: 79 P: 15 AK: 160 QRS: -89 QRSD: 176 T: 84 QT: 479 QTc: 551 Interpretive Statements ELECTRONIC VENTRICULAR PACEMAKER ABNORMAL RHYTHM ECG Compared to ECG 12/01/2021 16:14:11 Atrial-paced complex(es) or rhythm no longer present Electronically Signed On 12-02-2021 20:20:50 CDT by Maribel Almeida M.D. [id number]
[2021-12-02 18:33] LABS: Basophils # 0.1 10^3/uL (0.0-0.1); Basophils % 0.4 %; Hematocrit 35.3 % (42.0-52.0); Hemoglobin 11.4 g/dL (11.7-16.6); Lymphocytes # 0.8 10^3/uL (0.8-4.8); Lymphocytes % 3.8 %; Mean Corpuscular HGB Conc 32.3 g/dL (30.0-36.0); Mean Corpuscular Hemoglobin 26.3 pg (28.0-34.0); Mean Corpuscular Volume 81.5 fl (80-94); Mean Platelet Volume 10.6 fL (7.4-10.4); Monocytes # 2.3 10^3/uL (0.2-0.9); Monocytes % 11.1 %; Neutrophils # 17.31 10^3/uL (1.8-7.7); Nucleated Red Blood Cells % 0 %; Platelet Count 372 10^3/cmm (130-400); Red Blood Count 4.33 10^6/uL (4.1-5.3); Red Cell Distribution Width 15.3 % (12.1-15.1); White Blood Count 20.8 10^3/uL (4.0-10.0)
[2021-12-02] MEDS: sodium chloride 0.9% 1,000 ML 75 ML IV (18:37)
[2021-12-02 18:44] LABS: ABG PCO2 46.2 mmHg (35-45); ABG PH Result 7.25 (7.35-7.45); Alveolar-Arterial Oxygen Gradi 70.6 mmHg (5-10); Arterial Blood Gas Hematocrit 37.5 % (42-52); Base Excess ABG -6.9 mmol/L (-2.0-2.0); Blood Gas Allen Test Pos; Blood Gas Operator Identificat CAK; Blood Gas Sample Site ARTLINE; Blood Gas Sample Type Arterial; Carboxyhemoglobin 1.1 %THgb (0.4-20.1); HCO3 ABG 20.3 mmol/L (22-26); HGB O2 Sat 95.8 % (95-100); Ionized Calcium Level - ABG 1.1 mmol/L (1.1-1.4); Methemoglobin 1.1 % (0.4-1.5); Oxygen Device VENT; Potassium Level - ABG 4.1 mmol/L (3.5-5.0); Total Hemoglobin 12.2 g/dL (14-18)
[2021-12-02 18:50] LABS: INR 1.46 (0.8-1.2)
[2021-12-02 18:55] LABS: Blood Urea Nitrogen 24 mg/dL (8-23); Calcium 6.8 mg/dL (8.5-10.5); Carbon Dioxide 20 mmol/L (22-29); Chloride 113 mmol/L (98-107); Glomerular Filtration Rate 37.5 mL/min (90-130); Glucose 136 mg/dL (65-115); Magnesium 2.4 mg/dL (1.7-2.3); Osmolality Calculated 304 mOsm/kg (285-295); Sodium 144 mmol/L (136-145)
[2021-12-02 18:56] LABS: Anion Gap 14.8 (5-19); Potassium 3.8 mmol/L (3.5-5.1)
[2021-12-02 19:14] LABS: Glucose Point of Care 136 mg/dL (70-110)
[2021-12-02 20:24] LABS: Glucose Point of Care 145 mg/dL (70-110)
--- NOTE | 2021-12-02 20:27 | PM.PN ---
Subjective Subjective: Had an intra-aortic balloon pump this morning by Dr. Bennett. Subsequently he was taken to the operating room. He had a three-vessel coronary bypass surgery. HORVATH to the LAD, venous graft to the RCA and obtuse marginal arteries. The aorta was heavily calcified. The diagonal artery could not be bypassed. Medications: Medication Review Details: Current Medications Al Hydrox/Mg Hydrox/Simethicone (Izih-Hee-Uqwpcqbtu-Lesli 30 Ml Udc) 30 ml PO Q15M PRN PRN Reason: INDIGESTION Atropine Sulfate (Atropine 1 Mg/Ml Sdv 1 Ml) 0.5 mg IVP PRN PRN PRN Reason: Symptomatic bradycardia Chlorhexidine Gluconate (Chlorhexidine Gluconate 0.12% Btl 473 Ml) 15 ml MUCOUS MEM BID RELL Dextrose (Dextrose 50% Syringe 50 Ml) 25 ml IVP ONCE PRN; Protocol PRN Reason: hypoglycemia protocol Dextrose (Dextrose 50% Syringe 50 Ml) 50 ml IVP PRN PRN; Protocol PRN Reason: hypoglycemia protocol Epinephrine (Racepinephrine 0.5 Ml Neb) 0.5 ml INHALATION Q6H.RESPIRATORY PRN PRN Reason: Stridor Fentanyl (Fentanyl 50 Mcg/Ml Inj 2ml) 50 mcg IVP Q1H PRN PRN Reason: SEVERE PAIN Glucagon (Glucagon 1 Mg/Ml Inj 1 Ml) 1 mg IM ONCE PRN; Protocol PRN Reason: Adult Acute Hypoglycemia Prot Hydralazine HCl (Hydralazine 20 Mg/Ml Inj 1 Ml) 5 mg IVP ONCE PRN PRN Reason: Systolic BP > 140 mmHg Sodium Chloride (Sodium Chloride 0.9%) 1,000 mls @ 100 mls/hr IV .Q10H [facility] Last Admin: 12/02/21 20:27 Dose: Not Given Documented by: Cefuroxime Sodium 1,500 mg/ (Sodium Chloride) 100 mls @ 200 mls/hr IV Q12H [facility]; Protocol Stop: 12/04/21 15:44 Amiodarone HCl 900 mg/Dextrose/ IV Miscellaneous Supplies 518 mls @ 0 mls/hr IV .Q0M RELL; Protocol Stop: 12/03/21 18:24 Dobutamine HCl/Dextrose (Dobutamine Drip) 500 mg in 250 mls @ 0 mls/hr IV .Q0M PRN; Protocol PRN Reason: Cardiac Output Dopamine HCl/Dextrose (Intropin Drip) 400 mg in 250 mls @ 19.816 mls/hr IV CONT PRN; Protocol PRN Reason: Hypotension Albumin Human (Albumin) 12.5 gm in 250 mls @ 600 mls/hr IV PRN PRN PRN Reason: For CVP < 4 or SBP< 90 Dextrose (D5w) 500 mls @ 100 mls/hr IV ONCE PRN; Protocol PRN Reason: Adult Acute Hypoglycemia Prot Norepinephrine Bitartrate 4 mg (/ Dextrose) 254 mls @ 10.583 mls/hr IV .Q24H PRN; Protocol PRN Reason: HYPOTENSION Phenylephrine HCl 25 mg/ (Sodium Chloride) 252.5 mls @ 0 mls/hr IV .Q0M PRN; Protocol PRN Reason: HYPOTENSION Nitroglycerin/Dextrose (Nitroglycerin Drip) 50 mg in 250 mls @ 0 mls/hr IV .Q0M RELL; Protocol Sodium Nitroprusside 50 mg/ (Dextrose) 252 mls @ 0 mls/hr IV .Q0M RELL; Protocol Labetalol HCl 300 mg/ Sodium (Chloride) 300 mls @ 30 mls/hr IV .Q10H PRN; Protocol PRN Reason: Systolic BP > 140 mmHg Sodium Chloride (Sodium Chloride 0.9%) 1,000 mls @ 75 mls/hr IV .[id number] RELL Insulin Human Regular 250 unit (/ Sodium Chloride) 252.5 mls @ 0 mls/hr IV .Q0M RELL; Protocol Propofol (Diprivan) 1,000 mg in 100 mls @ 0 mls/hr IV .Q0M RELL; Protocol Labetalol HCl (Labetalol 5 Mg/Ml Sdv 20ml) 10 mg IVP Q5M PRN PRN Reason: Systolic BP >140 mmHG Magnesium Hydroxide (Magnesium Hydroxide 30 Ml Udc) 30 ml PO DAILY PRN PRN Reason: CONSTIPATION Midazolam HCl (Midazolam 1 Mg/Ml Inj 2 Ml) 1 mg IVP Q1H PRN PRN Reason: Sedation for Santiago score < 4. Morphine Sulfate (Morphine 4 Mg/Ml Sdv 1 Ml) 2 mg IVP Q4H PRN PRN Reason: SEVERE PAIN Morphine Sulfate (Morphine 4 Mg/Ml Sdv 1 Ml) 2 mg IVP Q1H PRN PRN Reason: BREAKTHROUGH PAIN Mupirocin (Mupirocin Oint 22 Gm) 1 applic NASAL BID [facility] Last Admin: 12/02/21 20:26 Dose: Not Given Documented by: Naloxone HCl (Naloxone 0.4 Mg/Ml Sdv) 0.1 mg IVP Q2M PRN PRN Reason: RESPIRATORY RATE < 8/MIN Naloxone HCl (Naloxone 0.4 Mg/Ml Sdv) 0.1 mg IVP Q2M PRN PRN Reason: OPIATERV Nitroglycerin (Nitroglycerin 0.4 Mg Sublingual Tablet) 0.4 mg SUBLINGUAL Q5M PRN PRN Reason: CHEST PAIN Ondansetron HCl (Ondansetron 2 Mg/Ml Sdv 2 Ml) 4 mg IVP Q6H PRN PRN Reason: NAUSEA AND VOMITING Ondansetron HCl (Ondansetron 2 Mg/Ml Sdv 2 Ml) 4 mg IVP Q6H PRN PRN Reason: NAUSEA Oxycodone/Acetaminophen (Oxycodone-Apap 5-325 Mg Tablet) 1 - 2 tab PO Q6H PRN PRN Reason: MILD TO MODERATE PAIN Pantoprazole Sodium (Pantoprazole 40 Mg Sdv) 40 mg IVP DAILY [facility] Stop: 12/04/21 08:59 Temazepam (Temazepam 15 Mg Capsule) 15 mg PO BEDTIME PRN PRN Reason: INSOMNIA Vitals/I&O/Wt Last Vital Signs Temp 98.7 F 12/02/21 03:00 Pulse 67 12/02/21 20:00 Resp 16 12/02/21 20:00 BP 83/51 12/02/21 20:00 Pulse Ox 100 12/02/21 20:00 12/02/21 12/02/21 12/02/21 06:59 14:59 22:59 Intake Total 50 / 50 4430 / 4480 Output Total 500 / 1100 2319 / 2319 Balance -500 / -900 50 / 50 2111 / 2161 Weight last 48 hrs Weight 233 lb Physical Exam Narrative: Patient is intubated and sedated. Blood pressure is 96/60 heart rate of 92/min Oxygenating fairly well Hemodynamics are fairly stable Urinary Catheter Management: Crawley: Cath Placed During This Visit: yes Reason for Continuing Indwelling Catheter: Accurate Measurement of Urinary Output in Critically Ill Patients Urinary Catheter Date of Insertion: 12/02/21 Urinary Catheter Time of Insertion: 08:00 Data : 12/02/21 18:17 12/02/21 18:17 Other Labs: Laboratory Last Values WBC 20.8 10^3/uL (4.0-10.0) H 12/02/21 18:17 RBC 4.33 10^6/uL (4.1-5.3) 12/02/21 18:17 Hgb 11.4 g/dL (11.7-16.6) L 12/02/21 18:17 Hct 35.3 % (42.0-52.0) L 12/02/21 18:17 MCV 81.5 fl (80-94) 12/02/21 18:17 MCH 26.3 pg (28.0-34.0) L 12/02/21 18:17 MCHC 32.3 g/dL (30.0-36.0) 12/02/21 18:17 RDW 15.3 % (12.1-15.1) H 12/02/21 18:17 Plt Count 372 10^3/cmm (130-400) 12/02/21 18:17 MPV 10.6 fL (7.4-10.4) H 12/02/21 18:17 Neut % (Auto) 83.0 % 12/02/21 18:17 Lymph % (Auto) 3.8 % 12/02/21 18:17 [place] % (Auto) 11.1 % 12/02/21 18:17 Eos % (Auto) 0.0 % 12/02/21 18:17 Baso % (Auto) 0.4 % 12/02/21 18:17 Neut # (Auto) 17.31 10^3/uL (1.8-7.7) H 12/02/21 18:17 Lymph # (Auto) 0.8 10^3/uL (0.8-4.8) 12/02/21 18:17 [place] # (Auto) 2.3 10^3/uL (0.2-0.9) H 12/02/21 18:17 Eos # (Auto) 0.0 10^3/uL (0.0-0.8) 12/02/21 18:17 Baso # (Auto) 0.1 10^3/uL (0.0-0.1) 12/02/21 18:17 Nucleated RBC % (auto) 0 % 12/02/21 18:17 Nucleated RBCs # 0.0 /100WBC 12/02/21 18:17 PT 18.10 SECONDS (12.1-14.9) H D 12/02/21 18:17 INR 1.46 (0.8-1.2) H 12/02/21 18:17 APTT 31.0 SECONDS (23.9-36.7) 12/02/21 18:17 Specimen Type Arterial 12/02/21 18:33 Sample Site Artline 12/02/21 18:33 ABG pH 7.25 (7.35-7.45) L 12/02/21 18:33 ABG pCO2 46.2 mmHg (35-45) H 12/02/21 18:33 ABG pO2 109.0 mmHg (80.0-100.0) H 12/02/21 18:33 ABG HCO3 20.3 mmol/L (22-26) L 12/02/21 18:33 ABG O2 Saturation 98.0 12/02/21 18:33 ABG Base Excess -6.9 mmol/L (-2.0-2.0) L 12/02/21 18:33 Maksim Test Pos 12/02/21 18:33 A-a O2 Gradient 70.6 mmHg (5-10) H 12/02/21 18:33 Hematocrit 37.5 % (42-52) L 12/02/21 18:33 Hgb O2 Saturation 95.8 % (95-100) 12/02/21 18:33 Carboxyhemoglobin 1.1 %THgb (0.4-20.1) 12/02/21 18:33 Methemoglobin 1.1 % (0.4-1.5) 12/02/21 18:33 Total Hemoglobin 12.2 g/dL (14-18) L 12/02/21 18:33 Sodium 153.0 mmol/L (131-143) H 12/02/21 18:33 Potassium 4.1 mmol/L (3.5-5.0) 12/02/21 18:33 Glucose 143.0 mg/dL (70-115) H 12/02/21 18:33 Ionized Calcium 1.1 mmol/L (1.1-1.4) 12/02/21 18:33 O2 Delivery Device Vent 12/02/21 18:33 FiO2 100.0 % 12/02/21 18:33 Tidal Volume 0.60 12/02/21 18:33 PEEP 5.0 cmH20 12/02/21 18:33 Rocket Motor Tester ID Cak 12/02/21 18:33 Sodium 144 mmol/L (136-145) 12/02/21 18:17 Potassium 3.8 mmol/L (3.5-5.1) 12/02/21 18:17 Chloride 113 mmol/L (98-107) H 12/02/21 18:17 Carbon Dioxide 20 mmol/L (22-29) L 12/02/21 18:17 Anion Gap 14.8 (5-19) 12/02/21 18:17 BUN 24 mg/dL (8-23) H 12/02/21 18:17 Creatinine 1.8 mg/dL (0.7-1.2) H 12/02/21 18:17 GFR Calculation 37.5 mL/min (90-130) L 12/02/21 18:17 Glucose 136 mg/dL (65-115) H 12/02/21 18:17 POC Glucose 145 mg/dL (70-110) H 12/02/21 20:19 Calculated Osmolality 304 mOsm/kg (285-295) H 12/02/21 18:17 Calcium 6.8 mg/dL (8.5-10.5) L 12/02/21 18:17 Magnesium 2.4 mg/dL (1.7-2.3) H 12/02/21 18:17 Total Bilirubin 0.5 mg/dL (0.15-1.2) 12/02/21 03:10 Direct Bilirubin 0.20 mg/dL (0.00-0.30) 12/01/21 21:25 AST 14 U/L (0-40) 12/02/21 03:10 ALT 16 U/L (0-41) 12/02/21 03:10 Alkaline Phosphatase 56 IU/L (40-130) 12/02/21 03:10 Troponin T Baseline 70 ng/L (0-15) H 12/01/21 10:30 Troponin T 120 Minute 69.74 ng/L (0-15) H 12/01/21 12:30 Delta Troponin T -0.26 ABS# (0-10) L 12/01/21 12:30 Troponin T Hi Sens 6Hr 68.57 ng/L (0-15) H 12/01/21 16:34 Troponin T Hi Sens 6Hr Delta -1.43 ng/L (0-12) L 12/01/21 16:34 Total Protein 7.2 g/dL (6.6-8.7) 12/02/21 03:10 Albumin 4.1 g/dL (3.5-5.2) 12/02/21 03:10 Globulin 3.1 g/dL (1.3-4.6) 12/02/21 03:10 TSH 2.15 uIU/mL (0.27-4.20) 12/01/21 21:25 Free T4 1.14 ng/dL (0.82-1.77) 12/01/21 21:25 Urine Color Yellow (Yellow) 12/01/21 22:40 Urine Appearance Clear (CLEAR) 12/01/21 22:40 Urine pH 5 (5-7) 12/01/21 22:40 Ur Specific Range 1.010 (1.005-1.030) 12/01/21 22:40 Urine Protein Neg (Negative) 12/01/21 22:40 Urine Glucose (UA) Norm (Normal) 12/01/21 22:40 Urine Ketones Negative (Negative) 12/01/21 22:40 Urine Blood Neg (Negative) 12/01/21 22:40 Urine Nitrate Negative (Negative) 12/01/21 22:40 Urine Bilirubin Neg (Negative) 12/01/21 22:40 Urine Urobilinogen Norm mg/dL (Negative) 12/01/21 22:40 Ur Leukocyte Esterase Negative (Negative) 12/01/21 22:40 Blood Type O Positive 12/02/21 07:00 Rho(D) Type Positive 12/02/21 07:00 Antibody Screen Negative 12/01/21 21:25 Crossmatch See Detail 12/01/21 21:25 A&P Assessment and plan (1) Atherosclerotic heart disease of [place] coronary artery with unstable angina pectoris: Patient status post three-vessel coronary bypass surgery-immediate postoperative state. Currently intubated and sedated Status: Acute (2) Dyslipidemia: Continue current medications Status: Acute (3) Aortic valve sclerosis: Status: Acute (4) Carotid stenosis: Less than 50 per stenosis Status: Acute Qualifiers: Laterality: bilateral Qualified Code(s): I65.23 - Occlusion and stenosis of bilateral carotid arteries Plan Close hemodynamic monitoring\ Balloon pump in place Attestations Medical Necessity Statement*: Patient requires continued hospital stay for close monitoring and further management Coding Level of Care Code Acute [employer] for [facility] Fwd Diagnoses Atherosclerotic heart disease of [place] coronary artery with unstable angina pectoris I25.110 Dyslipidemia E78.5 Aortic valve sclerosis I35.8 Carotid stenosis I65.23 Laterality: bilateral
[2021-12-02] MEDS: aspirin 81 mg EC Tablet PO (20:40)
[2021-12-02] MEDS: pantoprazole 40 mg SDV IVP (20:40)
--- NOTE | 2021-12-02 20:51 | PM.OP ---
Operative Report Date of procedure: December 02, 2021 Pre-op diagnosis: Preop Diagnosis CAD/severe left main stenosis Post-op diagnosis: same Post-op diagnosis: Heavily calcified ascending aorta Post-op findings: Heavily calcified ascending aorta Below average quality saphenous vein required harvesting from both the right and left sides in order to obtain 2 appropriate segments Procedure done: 1. Coronary artery bypass grafting x3 (1 artery and 2 veins) utilizing in situ left internal mammary artery to the left anterior descending artery, reverse saphenous vein graft aorta to the right coronary artery, reverse saphenous vein graft from aorta to the obtuse marginal branch of the circumflex artery 2. Endoscopic harvesting of the right greater saphenous vein in the thigh and leg 3. Harvesting via open technique of the left greater saphenous vein in the thigh Implants: Proximal saphenous vein markers x2 Pathology: none sent Surgeon: Bharathi Jimenez Anesthesia: General Estimated blood loss (mL): 900 Estimated blood loss: 900 cc of cell salvage blood was processed and retransfuse Complications: None Findings: Severe calcifications of the ascending aorta Below average quality of the greater saphenous vein required harvesting from both the right thigh and leg and left thigh in order to obtain 2 adequate quality segments Condition: stable Disposition: ICU Brief History: Mr. Nogueira is a 71-year-old gentleman with a progressive history of exertional angina over the past few weeks and a prior history of coronary artery disease. He was admitted upon presentation from his [facility] clinic to the emergency department with repetitive chest pain. Related to his prior history and his risk, left heart catheterization was recommended by Dr. Almeida which revealed severe left main coronary artery stenosis of greater than 95% as well as high-grade lesion of the mid RCA and total occlusion of the circumflex vessel. Surgical revascularization was recommended. Indurated balloon pump was placed preoperatively by our cardiology colleagues in preparation for planned CABG. Details the risk of surgery were carefully and frankly discussed with Mr. Nogueira and his . Extensive consultations night before surgery was had. All questions were answered. Appropriate consents have been reviewed and signed. They wish to proceed. Procedure: Details and risks of the surgery were carefully and frankly explained to the patient and the family. Particular risks of this surgery carefully reviewed with them included the possibility of , stroke, heart attack, major bleeding, infection, pneumonia, pain, organ failure, failure to benefit, early closure of the bypass grafts, prolonged hospital stay and subsequent need for further procedures. Increased risks for complications secondary to severe left main stenosis, long history of continued tobacco use, history of COVID-pneumonia in June of this year, renal insufficiency, and decreased ejection fraction were carefully reviewed. Patient and family understand these increased risks. All questions were answered and appropriate consents were reviewed and signed. Preoperative education for the patient and the family included written materials. Mr. Nogueira and his family wished to proceed with plans for attempted surgical revascularization for severe coronary artery bypass. PROCEDURE: Preoperative evaluation was obtained from our Anesthesia colleagues and adequate IVs were confirmed. He received a preoperative antibiotic balloon pump by Dr. Bennett this morning in the catheterization laboratory prior to proceeding to the operating room suite. He was then taken to the Operating Room Suite where general anesthesia was induced. Appropriate invasive monitoring lines were placed, including large bore peripheral IVs, central line, Bouton-Clarence catheter, Crawley catheter and associated monitoring leads. After careful positioning on the Operating Room table, the patient was subsequently sterilely prepped and draped. Saphenous vein was harvested by endoscopic technique from the right thigh and leg. Branches were secured with ligature and clips and the vein was extracted from the tunnel without tension. It was then flushed with a Heparin and albumin solution and prepared for grafting. Vein harvest sites were irrigated, platelet poor plasma infused into the tunnel and port sites closed with 3-0 and 4-0 Vicryl Plus suture. Due to areas of below average quality of this greater saphenous vein from the right lower extremity, we elected to proceed with harvesting via open technique the left greater saphenous vein from the thigh. Simultaneously with vein harvesting, a median sternotomy was created utilizing a #10 scalpel blade with hemostasis controlled with cautery. After reaching the sternal table, the sternum was divided with a reciprocating saw. Bleeding was controlled with cautery and judicious use of bone wax. Following this, the left chest wall was elevated with a Rultract retractor. The left internal mammary artery was dissected free with branches being secured with clips and cautery. The distal end was left intact. After harvesting of the mammary artery, a left pleural chest tube was then placed. The left chest wall was then lowered and moistened antibiotic-soaked laparotomy pads were placed in the wound, followed by an Ankeney retractor. The sternum was then and the pericardium opened and secured with stay sutures. After inspection, 2-0 pledgeted Ethibond sutures were placed at cannulation sites, at which time the patient was fully heparinized. Following this, the left internal mammary artery was taken down from its distal attachment, flushed with Papaverine solution, prepared for grafting and brisk flow confirmed. A soft bulldog was applied distally. Upon inspection, the acing aorta was heavily calcified with thick calcific plaques as well as soft plaque. Careful and meticulous inspection identified 2 areas that were relatively soft that I felt could be utilized for proximal anastomosis to graft. More cranially, there was an area of soft at the base of the innominate artery which I felt with the location for our aortic cannula. Next, the heart was cannulated with a 22-Pashto aortic cannula, two-stage venous cannula and aortic root vent. The patient was subsequently placed on cardiopulmonary bypass and cooled systemically to 34 degrees. Aortic cross-clamp was then very carefully placed and 4 degree Celsius cold blood cardioplegia was administered through the aortic root in antegrade fashion. Prompt diastolic arrest was obtained. Left ventricular decompression was confirmed. The heart was cooled systemically with iced saline with an insulation pad in place to protect the phrenic nerve. Throughout the cross-clamp period, at 20-30 minute intervals, antegrade blood cardioplegia was administered to maintain asystole. We then inspected the cardiac surface and coronary anatomy. Initially, the distal RCA was opened up at 2 mm in size. A section of vein was anastomosed distally in a end-to-side fashion with running 7-0 Prolene suture and proximally to a 4 mm aortotomy with 5-0 Prolene suture. We were able to then identify the lateral wall and OMB branch of the circumflex artery. A second vein section was anastomosed to this vessel, again with 7-0 Prolene suture. I elected to wait until completion of the mammary anastomosis then performed proximal anastomosis of this graft to our aortic root cannulation site given the limited landing zones of this calcific aorta. With the rewarming phase of bypass continuing, the left internal mammary artery was brought through a left anterior pericardial window into the field. The LAD was opened up in its mid one-third and was approximately 2 mm in size. The HORVATH was then anastomosed to the LAD (which was intramyocardial) with a running 7-0 Prolene suture. It should be noted that all distal coronary anastomoses were performed over the appropriate size coronary shunt which was removed prior to securing the distal suture line. Following this, aortic cross-clamp was released and de-airing maneuvers were performed through the aortic root vent, as well as being confirmed by transesophageal echocardiography. The aortic root cannula was then removed and the vein graft to the OMB branch of the circumflex artery was then anastomosed to this site with running 5-0 Prolene suture. Dobutamine at 3 mcg per kilogram per minute was administered with good chronotropic and inotropic affect. The heart returned to spontaneous sinus rhythm and did not require cardioversion or external pacing. He does have a dual-chamber pacemaker in position which was placed previously by Dr. Almeida. Intra-aortic balloon pump was reinstituted at 1:2 ratio. After adequate recovery from the cross-clamp period and confirmation of cardiac stability, Mr. Nogueira was weaned from bypass without difficulty. Venous cannula was removed. Heparin was reversed with Protamine and confirmed by measurement of activated clotting time. The heart was then decannulated and cannulation sites were oversewn as required. Pacing wires were placed and brought through the skin and secured. Radiopaque markers were placed on the vein grafts at the level of aorta. 3 mediastinal drains were placed and connected to Pleur-evac suction. The wound was carefully irrigated and hemostasis was confirmed. Ankeney retractor was removed and sponge and needle count was correct. The sternum was then reapproximated very carefully with interrupted #7 stainless steel wire with Surgicel strips used beneath the sternal table. Fascia was closed with #1 Vicryl suture with the next layers being closed with 2-0 and 3-0 suture. The skin was reapproximated carefully in a subcuticular manner. Sterile dressings were applied, followed by a vacuum-assisted dressing. Mr. Nogueira was carefully removed from the operating room table and transferred to the Intensive Care Unit. The family was then counseled as to the details of the procedure. Dr. Almeida was notified of our operative findings and procedure details.
[2021-12-02 21:03] LABS: Glucose Point of Care 146 mg/dL (70-110)
[2021-12-02 21:27] LABS: ABG PCO2 39.7 mmHg (35-45); ABG PH Result 7.34 (7.35-7.45); Alveolar-Arterial Oxygen Gradi 65.8 mmHg (5-10); Arterial Blood Gas Hematocrit 36.6 % (42-52); Base Excess ABG -3.9 mmol/L (-2.0-2.0); Blood Gas Allen Test Pos; Blood Gas Operator Identificat MONRO; Blood Gas Sample Site Not specified; Blood Gas Sample Type Arterial; Carboxyhemoglobin 0.8 %THgb (0.4-20.1); HCO3 ABG 21.5 mmol/L (22-26); HGB O2 Sat 97.7 % (95-100); Ionized Calcium Level - ABG 1.1 mmol/L (1.1-1.4); Methemoglobin 0.9 % (0.4-1.5); Oxygen Device VENT; Oxygen Saturation ABG 99.4; Potassium Level - ABG 4.3 mmol/L (3.5-5.0); Total Hemoglobin 11.9 g/dL (14-18)
[2021-12-02 21:30] LABS: Hematocrit 35.9 % (42.0-52.0); Hemoglobin 11.5 g/dL (11.7-16.6); Mean Corpuscular Hemoglobin 26.1 pg (28.0-34.0); Mean Corpuscular Volume 81.4 fl (80-94); Mean Platelet Volume 10.8 fL (7.4-10.4); Platelet Count 417 10^3/cmm (130-400); Red Blood Count 4.41 10^6/uL (4.1-5.3); Red Cell Distribution Width 15.3 % (12.1-15.1); White Blood Count 19.5 10^3/uL (4.0-10.0)
[2021-12-02] MEDS: mupirocin oint 22 gm 1 APPLIC NASAL (21:40)
[2021-12-02] MEDS: chlorhexidine gluconate 0.12% Btl 473 mL 15 ML MUCOUS MEM (21:41)
[2021-12-02 22:14] LABS: Anion Gap 12.2 (5-19); Blood Urea Nitrogen 24 mg/dL (8-23); Calcium 7.2 mg/dL (8.5-10.5); Carbon Dioxide 23 mmol/L (22-29); Chloride 114 mmol/L (98-107); Glomerular Filtration Rate 42.9 mL/min (90-130); Glucose 146 mg/dL (65-115); Magnesium 2.5 mg/dL (1.7-2.3); Osmolality Calculated 307 mOsm/kg (285-295); Potassium 4.2 mmol/L (3.5-5.1); Sodium 145 mmol/L (136-145)
[2021-12-02 22:16] LABS: Glucose Point of Care 153 mg/dL (70-110)
[2021-12-02 22:17] LABS: Creatinine Clr Calc Pharmacy 53.1409
[2021-12-02 22:24] LABS: Absolute Neutrophil 16.8 10^3/cmm (1.4-6.5); Absolute Segmented Neutrophil 12.5 10/cmm (1.6-7.1); Band Neutrophils Absolute 4.3 10^3/cmm (0.0-1.2); Eosinophils 0 %; Lymphocytes 3 %; Lymphocytes Absolute 1.4 10^3/cmm (1.2-3.4); Monocytes Absolute 1.4 10^3/cmm (0.1-0.6); Platelet Estimate Increased (Normal); Polychromasia 2+; Segmented Neutrophils 64 %; Slide Review Slide Review Perform; Total Cells Counted 100 (0-100)
[2021-12-02 23:20] LABS: Glucose Point of Care 126 mg/dL (70-110)
[2021-12-03] VITALS (232 sets, daily range): BP systolic 87–144; BP diastolic 47–79; PULSE 64–95; RESP 12–22; TEMP 37.4–37.9; O2SAT 90–100
[2021-12-03 00:07] LABS: Glucose Point of Care 131 mg/dL (70-110)
[2021-12-03 01:07] LABS: Glucose Point of Care 125 mg/dL (70-110)
[2021-12-03] MEDS: fentaNYL 50 mcg/mL INJ 2mL IVP ×7 (01:40→18:22)
[2021-12-03 02:25] LABS: Glucose Point of Care 123 mg/dL (70-110)
[2021-12-03 02:49] LABS: Basophils # 0.1 10^3/uL (0.0-0.1); Basophils % 0.6 %; Eosinophils # 0.2 10^3/uL (0.0-0.8); Hematocrit 35.5 % (42.0-52.0); Hemoglobin 11.5 g/dL (11.7-16.6); Lymphocytes # 0.8 10^3/uL (0.8-4.8); Lymphocytes % 4.5 %; Mean Corpuscular HGB Conc 32.4 g/dL (30.0-36.0); Mean Corpuscular Hemoglobin 26.4 pg (28.0-34.0); Mean Corpuscular Volume 81.4 fl (80-94); Mean Platelet Volume 11.2 fL (7.4-10.4); Monocytes # 2.5 10^3/uL (0.2-0.9); Monocytes % 13.9 %; Neutrophils # 14.09 10^3/uL (1.8-7.7); Neutrophils % 78.9 %; Nucleated Red Blood Cells % 0 %; Platelet Count 464 10^3/cmm (130-400); Red Blood Count 4.36 10^6/uL (4.1-5.3); Red Cell Distribution Width 15.4 % (12.1-15.1); White Blood Count 17.8 10^3/uL (4.0-10.0)
[2021-12-03 03:01] LABS: INR 1.36 (0.8-1.2); Partial Thromboplastin Time 34.4 SECONDS (23.9-36.7)
[2021-12-03 03:07] LABS: Anion Gap 12.8 (5-19); Carbon Dioxide 23 mmol/L (22-29); Chloride 113 mmol/L (98-107); Glucose 130 mg/dL (65-115); Magnesium 2.4 mg/dL (1.7-2.3); Potassium 4.8 mmol/L (3.5-5.1); Sodium 144 mmol/L (136-145)
[2021-12-03 03:23] LABS: Blood Urea Nitrogen 24 mg/dL (8-23); Calcium 7.2 mg/dL (8.5-10.5); Osmolality Calculated 304 mOsm/kg (285-295)
[2021-12-03 04:20] LABS: ABG PCO2 52.7 mmHg (35-45); Arterial Blood Gas Hematocrit 29.7 % (42-52); Blood Gas Sample Site Brachial, left; Blood Gas Sample Type Arterial; Carboxyhemoglobin 1.3 %THgb (0.4-20.1); HCO3 ABG 14.1 mmol/L (22-26); HGB O2 Sat 64.1 % (95-100); Ionized Calcium Level - ABG 1.5 mmol/L (1.1-1.4); Methemoglobin 0.5 % (0.4-1.5); Oxygen Device AMBU; Oxygen Saturation ABG 65.3; PO2 ABG 49.9 mmHg (80.0-100.0); Total Hemoglobin 9.7 g/dL (14-18)
--- NOTE | 2021-12-03 04:24 | P.OP_ITS ---
Operative Report Date of procedure: December 03, 2021 Pre-op diagnosis: Preop Diagnosis CAD/status post CABG with preoperative insertion of medihoney balloon pump Preop Diagnosis Post-op diagnosis: same Procedure done: Removal of intra-aortic balloon pump previously placed by Dr. Bennett from cardiology Implants: None Specimens removed/disposition: None Pathology: none sent Surgeon: Bharatih Jimenez Anesthesia: None Complications: None Condition: stable Disposition: ICU Brief History: Mr. Nogueira is a 71-year-old gentleman who is now approximately 12 hours status post CABG x3 for severe left main coronary artery stenosis, occlusion of the circumflex artery, and high-grade RCA stenosis. Intra-aortic balloon pump was placed preoperatively by my colleague Dr. Bennett from our cardiology service as a prophylactic measure in preparation for CABG. Mr. Nogueira has been stable postoperatively and the balloon pump has been weaned to 1-3 counterpulsation's. We will proceed with removal of balloon pump in preparation for continued ventilator weaning and continued recovery per protocol. Procedure: Mr. Nogueira is currently intubated and sedated. I removed the retention sutures from the balloon pump tubing The balloon pump was turned off. Entire insertion area was prepped with chlorhexidine. Pressure driveline was cut and 20 cc Luer- Monet syringe was placed on the driveline and negative pressure applied to confirm complete collapse of the intra-aortic balloon. Next, pressure was held immediately distal to the insertion site as the balloon pump was removed and aligned with traction until it was completely outside the vessel. There was brisk arterial bleeding. Direct pressure was then held over the site for over 30 minutes with subsequent confirmation of hemostasis. A pressure dressing was then applied. This area will be observed carefully for the next several hours. We will keep Mr. Nogueira sedated during this interim to confirm hemostasis at the insertion site. He tolerated procedure well. There is no evidence for distal embolization on post removal examination. Vital signs remained stable post removal of intra-aortic balloon pump.
--- NOTE | 2021-12-03 04:30 | P.OP_ITS ---
Operative Report Date of procedure: December 03, 2021 Pre-op diagnosis: Preop Diagnosis CAD Preop Diagnosis CAD/status post CABG with preoperative insertion of medihoney balloon pump Malfunctioning left radial arterial line. Preop Diagnosis Post-op diagnosis: same Procedure done: Placement of left femoral arterial pressure line Specimens removed/disposition: None Pathology: none sent Surgeon: Bharathi Jimenez Estimated blood loss (mL): 5 Complications: None Condition: stable Disposition: ICU Brief History: Mr. Nogueira is a 71-year-old gentleman who is status post CABG x3 approximately 12 hours. He had an intra-aortic balloon pump placed prophylactically preoperatively due to a critical left main coronary artery stenosis. He has been hemodynamically stable postoperatively and in the right balloon pump is now being prepared for removal. We have been utilizing the pressure from the balloon pump to assist with our hemodynamic evaluation. His left radial arterial line which was placed intraoperatively has not functioned appropriately with accurate blood pressure measurements, having been utilized for arterial blood draws. In preparation for balloon pump removal, I have recommended placement of a left femoral arterial line allow for accurate invasive arterial pressure monitoring. Procedure: Mr. Nogueira's left groin was sterilely prepped and draped utilizing chlorhexidine and sterile drapes. 1% lidocaine was infiltrated over the left femoral pulse. Next, utilizing an introducer needle and syringe the left femoral artery was engaged with brisk bleeding. Guidewire was placed without difficulty. #11 scalpel blade was utilized to incise the skin at which time a long left femoral arterial catheter was placed over the guidewire and the guidewire was removed intact. There was brisk bleeding from the catheter. This was connected to pressurized tubing and flushed. Entire system was then zeroed and pressure obtained which revealed a good arterial waveform and was equivalent to our noninvasive pressure. The arterial catheter was then sewn to the skin utilizing 3-0 silk suture. Sterile dressing was then applied. Following this, we elected to remove the poorly functioning left radial arterial line. Direct pressure was held and hemostasis confirmed. Following this, and we then removed the intra- aortic balloon pump which has been dictated separately.
[2021-12-03 04:35] LABS: Glucose Point of Care 156 mg/dL (70-110)
--- NOTE | 2021-12-03 04:36 | P.PN_ITS ---
Subjective Subjective: Postop day #1 status post CABG x3. Mr. Nogueira has had uneventful night with low chest tube output and is remained hemodynamically stable. Dobutamine was weaned off around midnight and he has now been on low pressure Levophed. He is remained sedated though upon arousal, he has been answering questions appropriately and moving extremities to command. He currently does remain intubated and his FiO2 has been decreased from 100% down to 65%. I weaned his balloon pump and I remove this this morning. I will also place a left femoral arterial line as his left radial arterial line has not been reading accurately. Left radial arterial line was likewise removed. Sternotomy dressings are clean and dry. He does have some peripheral edema. He is having adequate urine output. H&H is stable. His white count is 17.8 thousand which is a slight decrease from 19.5 yesterday, in the immediate postoperative period. Electrolytes have been reviewed. It is noted that his BUN is 24 and creatinine has increased to 1.7 with a normal baseline of 1.3-1.4. This is most probably related to contrast from his left heart catheterization on Tuesday, December 01 and his CABG and cardiopulmonary bypass run from yesterday. His intake and output is up approximately 2 L. Chest tube output approximate 150 cc since surgery. Chest x-ray is currently pending. I have elected to hold on the morning chest x-ray as we have just now recently remove the balloon pump and I did not want to raise the head of his bed for several hours. Vitals/I&O/Wt Last Vital Signs Temp 99.7 F H 12/03/21 00:00 Pulse 72 12/02/21 22:00 Resp 16 12/02/21 23:51 BP 96/52 12/02/21 20:30 Pulse Ox 99 12/03/21 02:28 12/02/21 12/02/21 12/03/21 14:59 22:59 06:59 Intake Total 50 / 50 4434.755 / 4484.755 269.063 / 4753.818 Output Total 2547 / 2547 Balance 50 / 50 1887.755 / 1937.755 269.063 / 2206.818 Weight last 48 hrs Weight 233 lb Physical Exam Chest: OTHER: Chest wall is stable. Surgical dressings are in place. Support lines remain in position. Drains are also in good position Resp: OTHER: Basilar crackles though otherwise clear Cardio: OTHER: Regular rate and rhythm. No murmur. There is a chest tube rub GI: OTHER: Hypoactive bowel sounds. Abdomen is soft. He does have an orogastric tube in position. Extremity: NARRATIVE EXTREMITY EXAM: There is 1-2+ peripheral edema. Lower extremities are warm with good perfusion. No evidence for embolic phenomenon. Urinary Catheter Management: Crawley: Cath Placed During This Visit: yes Reason for Continuing Indwelling Catheter: Accurate Measurement of Urinary Output in Critically Ill Patients Urinary Catheter Date of Insertion: 12/02/21 Urinary Catheter Time of Insertion: 08:00 Data : 12/03/21 02:30 12/03/21 02:30 A&P Assessment and plan (1) Status post aorto-coronary artery bypass graft: Postop day #1 status post CABG. Plan: We will leave sedated and supine for the next few hours as his intervertebral implant has recently been removed. We will then regulate of his bed and continue ventilator weaning. Will continue daily aspirin and low-dose beta-blockade. Lipitor tonight. Continue weaning of Levophed. CBC, BMP, chest x-ray in a.m. Continue management per our cardiology colleagues. Status: Acute Attestations Medical Necessity Statement*: Postop day #1 status post CABG Coding Level of Care Code Acute Hat Finishing Materials Preparer for Chg Fwd Diagnoses Status post aorto-coronary artery bypass graft Z95.1
[2021-12-03 05:22] LABS: ABG PCO2 28.3 mmHg (35-45); ABG PH Result 7.39 (7.35-7.45); Arterial Blood Gas Hematocrit 32.1 % (42-52); Base Excess ABG -6.7 mmol/L (-2.0-2.0); Blood Gas Allen Test Pos; Blood Gas Sample Type Arterial; Carboxyhemoglobin 0.6 %THgb (0.4-20.1); HCO3 ABG 17.2 mmol/L (22-26); HGB O2 Sat 95.2 % (95-100); Ionized Calcium Level - ABG 0.9 mmol/L (1.1-1.4); Methemoglobin 0.7 % (0.4-1.5); Oxygen Saturation ABG 96.5; PO2 ABG 95.7 mmHg (80.0-100.0); Potassium Level - ABG 3.7 mmol/L (3.5-5.0); Total Hemoglobin 10.5 g/dL (14-18)
[2021-12-03 05:26] LABS: Glucose Point of Care 141 mg/dL (70-110)
[2021-12-03 05:26] LABS: Alveolar-Arterial Oxygen Gradi 33.7 mmHg (5-10); Blood Gas Operator Identificat MONRO; Blood Gas Sample Site Not specified; Oxygen Device VENT
--- NOTE | 2021-12-03 06:00 | ECG_ITS ---
[facility] Test Date: 2021-12-03 Pat Name: Martín Nogueira Department: Room: ICU11 Gender: Male Plate Printer: : [id number] Requested By: Bharathi Jimenez Order Number: [id number] Mondragon MD: Zaheer Bennett M.D. Measurements Intervals Pala Rate: 72 P: 33 IA: 182 QRS: -86 QRSD: 167 T: 78 QT: 447 QTc: 492 Interpretive Statements ELECTRONIC VENTRICULAR PACEMAKER ABNORMAL RHYTHM ECG Compared to ECG 12/02/2021 18:33:00 No significant changes Electronically Signed On 12-03-2021 15:24:16 CDT by Zaheer Bennett M.D. [email or web address]
--- NOTE | 2021-12-03 06:00 | XRR_ITS ---
PROCEDURE INFORMATION: Exam: XR Chest Exam date and time: 12/03/2021 5:04 AM Age: 71 years old Clinical indication: Device placement; Other: Cabg; Prior surgery; Surgery date: Post-operative (0-2 days); Additional info: S/P cabg TECHNIQUE: Imaging protocol: XR of the chest. Views: 1 view. COMPARISON: CR XR chest 1V portable [id number] 12/02/2021 5:15 PM FINDINGS: Tubes, catheters and devices: Endotracheal tube terminates approximately 4.3 cm above the emilia. Enteric tube passes into the stomach. Right IJ central venous catheter terminates in the region of the distal SVC. Right IJ [place]-Clarence catheter terminates in the region of the main pulmonary artery. Cardiac rhythm maintenance device is in place. Mediastinal and pleural drains are in place. Lungs: Improved pulmonary vascular congestion. Improved left basilar atelectasis. Pleural spaces: No substantial pleural effusion. No pneumothorax. Heart/Mediastinum: Postoperative changes of CABG. Bones/joints: Unremarkable. XR/XR chest 1V portable [id number] IMPRESSION: 1. Expected postoperative changes of CABG with improved pulmonary vascular congestion and left basilar atelectasis. 2. Stable positioning of support apparatus as detailed above.
[2021-12-03 06:29] LABS: Glucose Point of Care 132 mg/dL (70-110)
[2021-12-03] MEDS: sodium chloride 0.9% 1,000 ML 75 ML IV (07:09)
[2021-12-03 07:10] LABS: Glucose Point of Care 133 mg/dL (70-110)
[2021-12-03 07:26] LABS: ABG PH Result 7.35 (7.35-7.45)
[2021-12-03 07:27] LABS: ABG PCO2 39.4 mmHg (35-45); Base Excess ABG -3.5 mmol/L (-2.0-2.0); HCO3 ABG 21.8 mmol/L (22-26); Oxygen Saturation ABG 99.2
[2021-12-03 07:28] LABS: Blood Gas Sample Type ARTERIAL
[2021-12-03 07:29] LABS: Arterial Blood Gas Hematocrit 45.2 % (42-52); Blood Gas Sample Site ARTLINE
[2021-12-03 07:30] LABS: Carboxyhemoglobin 0.6 %THgb (0.4-20.1); Ionized Calcium Level - ABG 1.2 mmol/L (1.1-1.4); Methemoglobin 0.6 % (0.4-1.5); Total Hemoglobin 14.8 g/dL (14-18)
[2021-12-03 07:31] LABS: ABG PCO2 43.1 mmHg (35-45); ABG PH Result 7.26 (7.35-7.45)
[2021-12-03 07:32] LABS: Base Excess ABG -7.5 mmol/L (-2.0-2.0); Blood Gas Operator Identificat PER; HCO3 ABG 19.3 mmol/L (22-26); Oxygen Saturation ABG 98.3; Potassium Level - ABG 3.6 mmol/L (3.5-5.0)
[2021-12-03 07:33] LABS: Arterial Blood Gas Hematocrit 45.7 % (42-52); Blood Gas Sample Site ARTLINE; Blood Gas Sample Type ARTERIAL; Carboxyhemoglobin 0.8 %THgb (0.4-20.1); HGB O2 Sat 96.9 % (95-100); Ionized Calcium Level - ABG 1.2 mmol/L (1.1-1.4); Methemoglobin 0.6 % (0.4-1.5); Total Hemoglobin 14.9 g/dL (14-18)
[2021-12-03 07:35] LABS: ABG PCO2 42.4 mmHg (35-45); ABG PH Result 7.33 (7.35-7.45); Base Excess ABG -3.7 mmol/L (-2.0-2.0); HCO3 ABG 22.2 mmol/L (22-26)
[2021-12-03 07:36] LABS: Arterial Blood Gas Hematocrit 32.7 % (42-52); Blood Gas Operator Identificat PER; Blood Gas Sample Site ARTLINE; Blood Gas Sample Type ARTERIAL; Potassium Level - ABG 4.5 mmol/L (3.5-5.0)
[2021-12-03 07:37] LABS: Carboxyhemoglobin 1.1 %THgb (0.4-20.1); HGB O2 Sat 98.6 % (95-100); Methemoglobin 0.6 % (0.4-1.5); Total Hemoglobin 10.7 g/dL (14-18)
[2021-12-03 07:41] LABS: ABG PH Result 7.29 (7.35-7.45); Base Excess ABG -4.7 mmol/L (-2.0-2.0); HCO3 ABG 21.9 mmol/L (22-26); Oxygen Saturation ABG 98.5
[2021-12-03 07:42] LABS: Arterial Blood Gas Hematocrit 29.9 % (42-52); Blood Gas Operator Identificat PER; Blood Gas Sample Site ARTLINE; Blood Gas Sample Type ARTERIAL; Potassium Level - ABG 3.7 mmol/L (3.5-5.0)
[2021-12-03 07:43] LABS: Carboxyhemoglobin 1.4 %THgb (0.4-20.1); HGB O2 Sat 96.3 % (95-100); Methemoglobin 0.9 % (0.4-1.5); Total Hemoglobin 9.8 g/dL (14-18)
[2021-12-03 07:44] LABS: ABG PCO2 39.6 mmHg (35-45); ABG PH Result 7.36 (7.35-7.45)
[2021-12-03 07:45] LABS: Base Excess ABG -2.7 mmol/L (-2.0-2.0); Blood Gas Operator Identificat PER; Blood Gas Sample Type ARTERIAL; HCO3 ABG 22.5 mmol/L (22-26); Potassium Level - ABG 4.5 mmol/L (3.5-5.0)
[2021-12-03 07:46] LABS: Arterial Blood Gas Hematocrit 34.3 % (42-52); Blood Gas Sample Site ARTLINE; Carboxyhemoglobin 0.9 %THgb (0.4-20.1); HGB O2 Sat 98.7 % (95-100); Methemoglobin 0.6 % (0.4-1.5); Total Hemoglobin 11.2 g/dL (14-18)
[2021-12-03 07:47] LABS: ABG PCO2 43.1 mmHg (35-45); ABG PH Result 7.26 (7.35-7.45); Base Excess ABG -7.5 mmol/L (-2.0-2.0); HCO3 ABG 19.3 mmol/L (22-26); Oxygen Saturation ABG 98.3
[2021-12-03 07:48] LABS: Arterial Blood Gas Hematocrit 45.7 % (42-52); Blood Gas Operator Identificat PER; Blood Gas Sample Site ARTLINE; Blood Gas Sample Type ARTERIAL; HGB O2 Sat 96.9 % (95-100); Ionized Calcium Level - ABG 1.2 mmol/L (1.1-1.4); Potassium Level - ABG 3.6 mmol/L (3.5-5.0); Total Hemoglobin 14.9 g/dL (14-18)
[2021-12-03 07:49] LABS: Carboxyhemoglobin 0.8 %THgb (0.4-20.1); Methemoglobin 0.6 % (0.4-1.5)
[2021-12-03 08:22] LABS: Glucose Point of Care 111 mg/dL (70-110)
[2021-12-03] MEDS: propofol 1,000 MG/100 ML INJ 6.34 MG IV (08:39)
[2021-12-03] MEDS: pantoprazole 40 mg SDV IVP (08:47)
[2021-12-03] MEDS: aspirin 81 mg EC Tablet PO (08:47)
[2021-12-03] MEDS: mupirocin oint 22 gm 1 APPLIC NASAL ×2 (08:48→18:23)
[2021-12-03] MEDS: chlorhexidine gluconate 0.12% Btl 473 mL 15 ML MUCOUS MEM ×2 (08:48→18:22)
[2021-12-03] MEDS: oxyCODONE-APAP 5-325 mg Tablet PO ×2 (09:09→21:50)
[2021-12-03 09:10] LABS: ABG PH Result 7.17 (7.35-7.45)
[2021-12-03 09:34] LABS: Glucose Point of Care 100 mg/dL (70-110)
[2021-12-03 09:40] LABS: ABG PH Result 7.04 (7.35-7.45)
--- NOTE | 2021-12-03 09:47 | PM.PN ---
Subjective Subjective: Patient is still intubated, planning to be extubated sometime this morning. Oxygenation is good. Currently is on 50% oxygen. He is under sedation. Vital signs are stable. PA pressures in the normal range. Telemetry shows A sensed, V paced rhythm Medications: Medication Review Details: Current Medications Al Hydrox/Mg Hydrox/Simethicone (Brpn-Kpk-Ioobdjscz-Lesli 30 Ml Udc) 30 ml PO Q15M PRN PRN Reason: INDIGESTION Aspirin (Aspirin 81 Mg Ec Tablet) 81 mg PO DAILY [facility] Last Admin: 12/03/21 08:47 Dose: 81 mg Documented by: Atorvastatin Calcium (Atorvastatin 40 Mg Tablet) 40 mg PO BEDTIME RELL Atropine Sulfate (Atropine 1 Mg/Ml Sdv 1 Ml) 0.5 mg IVP PRN PRN PRN Reason: Symptomatic bradycardia Chlorhexidine Gluconate (Chlorhexidine Gluconate 0.12% Btl 473 Ml) 15 ml MUCOUS MEM BID [facility] Last Admin: 12/03/21 08:48 Dose: 15 ml Documented by: Dextrose (Dextrose 50% Syringe 50 Ml) 25 ml IVP ONCE PRN; Protocol PRN Reason: hypoglycemia protocol Dextrose (Dextrose 50% Syringe 50 Ml) 50 ml IVP PRN PRN; Protocol PRN Reason: hypoglycemia protocol Epinephrine (Racepinephrine 0.5 Ml Neb) 0.5 ml INHALATION Q6H.RESPIRATORY PRN PRN Reason: Stridor Fentanyl (Fentanyl 50 Mcg/Ml Inj 2ml) 50 mcg IVP Q1H PRN PRN Reason: SEVERE PAIN Last Admin: 12/03/21 08:03 Dose: 50 mcg Documented by: Glucagon (Glucagon 1 Mg/Ml Inj 1 Ml) 1 mg IM ONCE PRN; Protocol PRN Reason: Adult Acute Hypoglycemia Prot Hydralazine HCl (Hydralazine 20 Mg/Ml Inj 1 Ml) 5 mg IVP ONCE PRN PRN Reason: Systolic BP > 140 mmHg Cefuroxime Sodium 1,500 mg/ (Sodium Chloride) 100 mls @ 200 mls/hr IV Q12H [facility]; Protocol Stop: 12/04/21 15:44 Last Titration: 12/03/21 04:50 Dose: Infused Documented by: Amiodarone HCl 900 mg/Dextrose/ IV Miscellaneous Supplies 518 mls @ 0 mls/hr IV .Q0M [facility]; Protocol Stop: 12/03/21 18:24 Dobutamine HCl/Dextrose (Dobutamine Drip) 500 mg in 250 mls @ 0 mls/hr IV .Q0M PRN; Protocol PRN Reason: Cardiac Output Last Titration: 12/03/21 00:00 Dose: 0 mcg/kg/min, 0 mls/hr Documented by: Dopamine HCl/Dextrose (Intropin Drip) 400 mg in 250 mls @ 19.816 mls/hr IV CONT PRN; Protocol PRN Reason: Hypotension Albumin Human (Albumin) 12.5 gm in 250 mls @ 600 mls/hr IV PRN PRN PRN Reason: For CVP < 4 or SBP< 90 Dextrose (D5w) 500 mls @ 100 mls/hr IV ONCE PRN; Protocol PRN Reason: Adult Acute Hypoglycemia Prot Norepinephrine Bitartrate 4 mg (/ Dextrose) 254 mls @ 10.583 mls/hr IV .Q24H PRN; Protocol PRN Reason: HYPOTENSION Last Titration: 12/03/21 06:30 Dose: 8 mcg/min, 30.48 mls/hr Documented by: Phenylephrine HCl 25 mg/ (Sodium Chloride) 252.5 mls @ 0 mls/hr IV .Q0M PRN; Protocol PRN Reason: HYPOTENSION Nitroglycerin/Dextrose (Nitroglycerin Drip) 50 mg in 250 mls @ 0 mls/hr IV .Q0M RELL; Protocol Sodium Nitroprusside 50 mg/ (Dextrose) 252 mls @ 0 mls/hr IV .Q0M RELL; Protocol Labetalol HCl 300 mg/ Sodium (Chloride) 300 mls @ 30 mls/hr IV .Q10H PRN; Protocol PRN Reason: Systolic BP > 140 mmHg Sodium Chloride (Sodium Chloride 0.9%) 1,000 mls @ 75 mls/hr IV .[id number] RELL Last Admin: 12/03/21 07:09 Dose: 75 mls/hr Documented by: Insulin Human Regular 250 unit (/ Sodium Chloride) 252.5 mls @ 0 mls/hr IV .Q0M RELL; Protocol Propofol (Diprivan) 1,000 mg in 100 mls @ 0 mls/hr IV .Q0M RELL; Protocol Last Admin: 12/03/21 08:39 Dose: 10 mcg/kg/min, 6.34 mls/hr Documented by: Labetalol HCl (Labetalol 5 Mg/Ml Sdv 20ml) 10 mg IVP Q5M PRN PRN Reason: Systolic BP >140 mmHG Magnesium Hydroxide (Magnesium Hydroxide 30 Ml Udc) 30 ml PO DAILY PRN PRN Reason: CONSTIPATION Midazolam HCl (Midazolam 1 Mg/Ml Inj 2 Ml) 1 mg IVP Q1H PRN PRN Reason: Sedation for Santiago score < 4. Morphine Sulfate (Morphine 4 Mg/Ml Sdv 1 Ml) 2 mg IVP Q4H PRN PRN Reason: SEVERE PAIN Morphine Sulfate (Morphine 4 Mg/Ml Sdv 1 Ml) 2 mg IVP Q1H PRN PRN Reason: BREAKTHROUGH PAIN Mupirocin (Mupirocin Oint 22 Gm) 1 applic NASAL BID [facility] Last Admin: 12/03/21 08:48 Dose: 1 applic Documented by: Naloxone HCl (Naloxone 0.4 Mg/Ml Sdv) 0.1 mg IVP Q2M PRN PRN Reason: RESPIRATORY RATE < 8/MIN Naloxone HCl (Naloxone 0.4 Mg/Ml Sdv) 0.1 mg IVP Q2M PRN PRN Reason: OPIATERV Nitroglycerin (Nitroglycerin 0.4 Mg Sublingual Tablet) 0.4 mg SUBLINGUAL Q5M PRN PRN Reason: CHEST PAIN Ondansetron HCl (Ondansetron 2 Mg/Ml Sdv 2 Ml) 4 mg IVP Q6H PRN PRN Reason: NAUSEA AND VOMITING Ondansetron HCl (Ondansetron 2 Mg/Ml Sdv 2 Ml) 4 mg IVP Q6H PRN PRN Reason: NAUSEA Oxycodone/Acetaminophen (Oxycodone-Apap 5-325 Mg Tablet) 1 - 2 tab PO Q6H PRN PRN Reason: MILD TO MODERATE PAIN Last Admin: 12/03/21 09:09 Dose: 2 tab Documented by: Pantoprazole Sodium (Pantoprazole 40 Mg Sdv) 40 mg IVP DAILY [facility] Stop: 12/04/21 08:59 Last Admin: 12/03/21 08:47 Dose: 40 mg Documented by: Temazepam (Temazepam 15 Mg Capsule) 15 mg PO BEDTIME PRN PRN Reason: INSOMNIA Vitals/I&O/Wt Last Vital Signs Temp 99.7 F H 12/03/21 00:00 Pulse 70 12/03/21 08:30 Resp 12 12/03/21 09:35 BP 120/56 12/03/21 08:30 Pulse Ox 98 12/03/21 09:35 12/02/21 12/03/21 12/03/21 22:59 06:59 14:59 Intake Total 4434.755 / 4484.755 473.427 / 4958.182 5178.991 / 5178.991 Output Total 2547 / 2547 842 / 3389 1130 / 1130 Balance 1887.755 / 1937.755 -368.573 / 9056.159 3837.991 / 4048.991 Weight last 48 hrs Weight 263 lb Weight 233 lb Physical Exam Narrative: GENERAL: The patient is intubated and sedated. Moving all the extremities. HEENT: Unremarkable.Oral cavity: There are no mucous membrane lesions. NECK: Trachea appears to be central. No masses noted. No JVD or thyromegaly appreciated. RESPIRATORY: Breath sounds are bilaterally with no rales or rhonchi. BREASTS: Deferred. HEART: The heart sounds are normal. No S3 or S4. No significant murmurs. No pericardial rub ABDOMEN: No vessel pulsations or distention. No tenderness. No organomegaly appreciated. Bowel sounds are normally heard. EXTREMITIES: Trace to 1+ edema bilaterally. No cyanosis. No clubbing. MUSCULOSKELETAL: No acute joint deformities or swelling SKIN: There are no significant rashes or ecchymosis NEUROPSYCHIATRIC: The patient is intubated and sedated. Moves all extremities. Urinary Catheter Management: Crawley: Cath Placed During This Visit: yes Reason for Continuing Indwelling Catheter: Accurate Measurement of Urinary Output in Critically Ill Patients Urinary Catheter Date of Insertion: 12/02/21 Urinary Catheter Time of Insertion: 08:00 Data : 12/03/21 02:30 12/03/21 02:30 EKG 1: My Interpretation: The EKG showed A sensed V paced rhythm EKG computer-generated impression: Chest X-Ray 12/03/21 06:00 IMPRESSION: 1. Expected postoperative changes of CABG with improved pulmonary vascular congestion and left basilar atelectasis. 2. Stable positioning of support apparatus as detailed above. normal pacer function A&P Assessment and plan (1) Atherosclerotic heart disease of [place] coronary artery with unstable angina pectoris: Patient status post three-vessel coronary bypass surgery-hemodynamically seems to be stable. Oxygenation seems to be appropriate. In the process of being extubated. Status: Acute (2) Dyslipidemia: Continue current medications Status: Acute (3) Aortic valve sclerosis: Clinically stable Status: Acute (4) Carotid stenosis: Less than 50 per stenosis bilaterally. May continue the risk modifying measures. Status: Acute Qualifiers: Laterality: bilateral Qualified Code(s): I65.23 - Occlusion and stenosis of bilateral carotid arteries Plan The intra-aortic balloon pump is discontinued. Currently in the process of weaning of the ventilator. Consider starting the oral medications, once he is able to tolerate oral fluids Other problems are Elevated white cell count, could be multifactorial Chronic kidney disease, kidney function is fairly stable BMP and CBC in the morning Attestations Medical Necessity Statement*: Patient requires continued hospital stay for close monitoring and further management Coding Level of Care Code Acute Nurse Staff [facility] Diagnoses Atherosclerotic heart disease of [place] coronary artery with unstable angina pectoris I25.110 Dyslipidemia E78.5 Aortic valve sclerosis I35.8 Carotid stenosis I65.23 Laterality: bilateral
[2021-12-03 10:14] LABS: Glucose Point of Care 105 mg/dL (70-110)
[2021-12-03 11:05] LABS: Glucose Point of Care 102 mg/dL (70-110)
[2021-12-03 12:32] LABS: Glucose Point of Care 94 mg/dL (70-110)
[2021-12-03 14:06] LABS: Glucose Point of Care 118 mg/dL (70-110)
--- NOTE | 2021-12-03 15:46 | PC.OT ---
OT EVALUATION ORDERS RECEIVED. PATIENT REMAINS ON VENTILATOR. EVALUATION TO BE ATTEMPTED AGAIN TOMORROW.
[2021-12-03 16:00] LABS: Glucose Point of Care 87 mg/dL (70-110)
--- NOTE | 2021-12-03 16:41 | PC.CHAP ---
Pastoral Care Encounter/Spiritual Assessment Type of Contact [] Declined senior major gifts officer visit [] Patient/Family/Request visit [] Outpatient visit [] Follow-up visit [] Physician referral [] Code/Alert [X] Routine visit [] Staff referral [] Actively dying [] Patient sleeping [X] Family support [] [] Out of room [] Palliative care [] [] Receiving care in room [] Pre-surgical visit [] Trauma [] Long length of stay [X] ICU visit [] Other: Relational/Emotional Strength [] Patient feels connected with others/family/visitors/staff [] Distress [] Loneliness/isolation [] Abandonment Spirituality of Patient [X] Person of Giulia [X] Attends Scientologist of their Giulia [X] Believes in Prayer [X] Reads Bible or Spiritism materials [] There are Spiritual issues to be addressed Boiler House Mechanic Interventions [X] Prayer [X] Active listening [X] Non-anxious presence [X] Spiritual/emotional support [] Crisis/trauma care [] Spiritual counseling [] Bereavement support [] Provided bereavement packet [] Provided Bible/devotional materials [] Provided toy/stuffed animal, coloring book to patient or family member [] Provided Communion [] Anointing/[place] [] Salvation [] Completed spiritual assessment [] Other: Impact on Illness or Injury [] Angry [] Fearful [] Anxious [] Often cries [] Exhaustion [] Unable to work [] Unable to attend alevism [] Unable to walk/stand [] Unable to read [] Unable to drive [] Unable to eat/drink [] Unable to sleep [] Unable to be with family [X] Patient intubated [] Other: Summary Boiler House Mechanic checked on patient and patient's family throughout the day. Patient starting to awake slowly, family by his bedside. Boiler House Mechanic encouraged family to take care of themselves with rest and good meals. Time spent with patient about 45 min throughout day.
[2021-12-03 17:08] LABS: Glucose Point of Care 105 mg/dL (70-110)
[2021-12-03 17:16] LABS: ABG PCO2 33.7 mmHg (35-45); ABG PH Result 7.43 (7.35-7.45); Alveolar-Arterial Oxygen Gradi 15.1 mmHg (5-10); Arterial Blood Gas Hematocrit 32.8 % (42-52); Base Excess ABG -1.4 mmol/L (-2.0-2.0); Blood Gas Allen Test Pos; Blood Gas Operator Identificat CAK; Blood Gas Sample Site Brachial, left; Blood Gas Sample Type Arterial; HCO3 ABG 22.4 mmol/L (22-26); HGB O2 Sat 90.5 % (95-100); Ionized Calcium Level - ABG 1.1 mmol/L (1.1-1.4); Methemoglobin < 0.0 % (0.4-1.5); Oxygen Device VENT; Oxygen Saturation ABG 91.3; PO2 ABG 55.6 mmHg (80.0-100.0); Potassium Level - ABG 4.2 mmol/L (3.5-5.0); Total Hemoglobin 10.7 g/dL (14-18)
[2021-12-03 18:22] LABS: Glucose Point of Care 113 mg/dL (70-110)
--- NOTE | 2021-12-03 19:07 | PC.NURSE ---
Shift summary Pt did well and maintained stable hemodynamics throughout the day. Sedation was weaned as vent settings were also weaned. Pt was successfully extubated at 1815 by RT and nursing staff. Pt placed on HHF 40/30. Pt is awake and alert. Total of 1100 urine output. Total of 325ml combined output of chest tubes. Dressing to right groin is CDI. Family at bedside.
[2021-12-03 19:53] LABS: Glucose Point of Care 112 mg/dL (70-110)
[2021-12-03 21:25] LABS: Glucose Point of Care 111 mg/dL (70-110)
[2021-12-03 22:14] LABS: Glucose Point of Care 101 mg/dL (70-110)
[2021-12-03 23:18] LABS: Glucose Point of Care 101 mg/dL (70-110)
[2021-12-04] VITALS (36 sets, daily range): BP systolic 97–142; BP diastolic 53–72; PULSE 74–93; RESP 12–27; TEMP 37.2; O2SAT 91–97
[2021-12-04 00:40] LABS: Glucose Point of Care 102 mg/dL (70-110)
[2021-12-04 01:50] LABS: Glucose Point of Care 102 mg/dL (70-110)
[2021-12-04 02:51] LABS: Glucose Point of Care 88 mg/dL (70-110)
[2021-12-04 04:10] LABS: Glucose Point of Care 112 mg/dL (70-110)
[2021-12-04 05:08] LABS: Glucose Point of Care 99 mg/dL (70-110)
--- NOTE | 2021-12-04 06:00 | XRR_ITS ---
PROCEDURE INFORMATION: Exam: XR Chest Exam date and time: 12/04/2021 4:33 AM Age: 71 years old Clinical indication: Device placement; Other: Pod #2 status post cabg; Prior surgery; Surgery date: Post-operative (0-2 days); Patient HX: F/u cabg pod #2. Patient extubated. TECHNIQUE: Imaging protocol: XR of the chest. Views: 1 view. COMPARISON: CR XR chest 1V portable [id number] 12/03/2021 5:04 AM FINDINGS: Tubes, catheters and devices: Cardiac device noted overlying the left chest. Right-sided central venous line noted with the distal tip in the mid to lower SVC. [place]-Clarence catheter noted with the distal tip in the expected region of the proximal main pulmonary artery, unchanged in position prior exam. Questionable left-sided chest tube, similar to prior exam. Interval removal of previously noted endotracheal tube. Lungs: The lung parenchyma is clear. Pleural spaces: No pneumothorax. No pleural effusion. Heart/Mediastinum: Postsurgical changes in the mediastinum noted. The heart is enlarged for size. Bones/joints: Median sternotomy wires noted. XR/XR chest 1V portable [id number] IMPRESSION: No significant change from prior exam.
[2021-12-04 06:17] LABS: Basophils # 0.1 10^3/uL (0.0-0.1); Basophils % 0.5 %; Eosinophils % 0.3 %; Hematocrit 32.4 % (42.0-52.0); Hemoglobin 9.9 g/dL (11.7-16.6); Lymphocytes # 0.9 10^3/uL (0.8-4.8); Lymphocytes % 6.9 %; Mean Corpuscular HGB Conc 30.6 g/dL (30.0-36.0); Mean Corpuscular Hemoglobin 26.1 pg (28.0-34.0); Mean Corpuscular Volume 85.3 fl (80-94); Mean Platelet Volume 11.3 fL (7.4-10.4); Monocytes # 1.3 10^3/uL (0.2-0.9); Monocytes % 9.8 %; Neutrophils # 11.08 10^3/uL (1.8-7.7); Neutrophils % 81.8 %; Nucleated Red Blood Cells % 0 %; Platelet Count 370 10^3/cmm (130-400); Red Cell Distribution Width 16.1 % (12.1-15.1); White Blood Count 13.5 10^3/uL (4.0-10.0)
[2021-12-04 06:23] LABS: Glucose Point of Care 108 mg/dL (70-110)
[2021-12-04 06:39] LABS: Anion Gap 15.2 (5-19); Blood Urea Nitrogen 22 mg/dL (8-23); Calcium 7.6 mg/dL (8.5-10.5); Carbon Dioxide 22 mmol/L (22-29); Chloride 113 mmol/L (98-107); Glucose 96 mg/dL (65-115); Osmolality Calculated 305 mOsm/kg (285-295); Potassium 4.2 mmol/L (3.5-5.1); Sodium 146 mmol/L (136-145)
[2021-12-04 07:03] LABS: Glucose Point of Care 105 mg/dL (70-110)
[2021-12-04] MEDS: FUROsemide 10 mg/mL SDV 2mL 20 MG IVP (08:10)
[2021-12-04] MEDS: aspirin 81 mg EC Tablet PO (09:29)
[2021-12-04] MEDS: mupirocin oint 22 gm 1 APPLIC NASAL (09:30)
[2021-12-04] MEDS: chlorhexidine gluconate 0.12% Btl 473 mL 15 ML MUCOUS MEM (09:30)
[2021-12-04 09:38] LABS: Glucose Point of Care 85 mg/dL (70-110)
[2021-12-04 09:58] LABS: Glucose Point of Care 119 mg/dL (70-110)
[2021-12-04] MEDS: oxyCODONE-APAP 5-325 mg Tablet PO ×3 (10:03→21:09)
--- NOTE | 2021-12-04 10:29 | PC.CHAP ---
Pastoral Care Encounter/Spiritual Assessment Type of Contact [] Declined aircraft structural design engineer visit [] Patient/Family/Request visit [] Outpatient visit [] Follow-up visit [] Physician referral [] Code/Alert [x] Routine visit [] Staff referral [] Actively dying [] Patient sleeping [x] Family support [] [] Out of room [] Palliative care [] [x] Receiving care in room [] Pre-surgical visit [] Trauma [] Long length of stay [x] ICU visit [] Other: Relational/Emotional Strength [] Patient feels connected with others/family/visitors/staff [] Distress [] Loneliness/isolation [] Abandonment Spirituality of Patient [] Person of Giulia [] Attends Pentecostalism of their Giulia [] Believes in Prayer [] Reads Bible or Alevism materials [] There are Spiritual issues to be addressed Ampoule Examiner Interventions [x] Prayer [x] Active listening [x] Non-anxious presence [x] Spiritual/emotional support [] Crisis/trauma care [] Spiritual counseling [] Bereavement support [] Provided bereavement packet [] Provided Bible/devotional materials [] Provided toy/stuffed animal, coloring book to patient or family member [] Provided Communion [] Anointing/[place] [] Salvation [x] Completed spiritual assessment [] Other: Impact on Illness or Injury [] Angry [] Fearful [] Anxious [] Often cries [] Exhaustion [] Unable to work [] Unable to attend mormon [] Unable to walk/stand [] Unable to read [] Unable to drive [] Unable to eat/drink [] Unable to sleep [] Unable to be with family [] Patient intubated [] Other: Summary heart surgery.. off vent.. family present.. patient talking.. praying for recovery and strength Time spent with patient 10 min
[2021-12-04 11:02] LABS: Glucose Point of Care 130 mg/dL (70-110)
--- NOTE | 2021-12-04 11:39 | PC.NURSE ---
edith removed this am.. along with art line out of left femoral area ...wraps removed from legs dressing applied and familia hose to legs. stood at side of bed this am with assist of pt took several steps
--- NOTE | 2021-12-04 12:08 | PM.PN ---
Subjective Subjective: The patient is extubated. His oxygenation is good. No fever or chills. No cough. The vital signs are stable. The chest tube draining is minimal. Medications: Medication Review Details: Current Medications Al Hydrox/Mg Hydrox/Simethicone (Ikbn-Try-Pmfwonavq-Lesli 30 Ml Udc) 30 ml PO Q15M PRN PRN Reason: INDIGESTION Aspirin (Aspirin 81 Mg Ec Tablet) 81 mg PO DAILY [facility] Last Admin: 12/04/21 09:29 Dose: 81 mg Documented by: Atorvastatin Calcium (Atorvastatin 40 Mg Tablet) 40 mg PO BEDTIME [facility] Last Admin: 12/03/21 22:04 Dose: Not Given Documented by: Atropine Sulfate (Atropine 1 Mg/Ml Sdv 1 Ml) 0.5 mg IVP PRN PRN PRN Reason: Symptomatic bradycardia Chlorhexidine Gluconate (Chlorhexidine Gluconate 0.12% Btl 473 Ml) 15 ml MUCOUS MEM BID [facility] Last Admin: 12/04/21 09:30 Dose: 15 ml Documented by: Dextrose (Dextrose 50% Syringe 50 Ml) 25 ml IVP ONCE PRN; Protocol PRN Reason: hypoglycemia protocol Dextrose (Dextrose 50% Syringe 50 Ml) 50 ml IVP PRN PRN; Protocol PRN Reason: hypoglycemia protocol Epinephrine (Racepinephrine 0.5 Ml Neb) 0.5 ml INHALATION Q6H.RESPIRATORY PRN PRN Reason: Stridor Fentanyl (Fentanyl 50 Mcg/Ml Inj 2ml) 50 mcg IVP Q1H PRN PRN Reason: SEVERE PAIN Last Admin: 12/03/21 18:22 Dose: 50 mcg Documented by: Glucagon (Glucagon 1 Mg/Ml Inj 1 Ml) 1 mg IM ONCE PRN; Protocol PRN Reason: Adult Acute Hypoglycemia Prot Hydralazine HCl (Hydralazine 20 Mg/Ml Inj 1 Ml) 5 mg IVP ONCE PRN PRN Reason: Systolic BP > 140 mmHg Cefuroxime Sodium 1,500 mg/ (Sodium Chloride) 100 mls @ 200 mls/hr IV Q12H RELL; Protocol Stop: 12/04/21 15:44 Last Infusion: 12/04/21 11:25 Dose: Infused Documented by: Dobutamine HCl/Dextrose (Dobutamine Drip) 500 mg in 250 mls @ 0 mls/hr IV .Q0M PRN; Protocol PRN Reason: Cardiac Output Last Titration: 12/03/21 00:00 Dose: 0 mcg/kg/min, 0 mls/hr Documented by: Dopamine HCl/Dextrose (Intropin Drip) 400 mg in 250 mls @ 19.816 mls/hr IV CONT PRN; Protocol PRN Reason: Hypotension Albumin Human (Albumin) 12.5 gm in 250 mls @ 600 mls/hr IV PRN PRN PRN Reason: For CVP < 4 or SBP< 90 Dextrose (D5w) 500 mls @ 100 mls/hr IV ONCE PRN; Protocol PRN Reason: Adult Acute Hypoglycemia Prot Norepinephrine Bitartrate 4 mg (/ Dextrose) 254 mls @ 10.583 mls/hr IV .Q24H PRN; Protocol PRN Reason: HYPOTENSION Last Titration: 12/04/21 04:00 Dose: 0 mcg/min, 0 mls/hr Documented by: Phenylephrine HCl 25 mg/ (Sodium Chloride) 252.5 mls @ 0 mls/hr IV .Q0M PRN; Protocol PRN Reason: HYPOTENSION Nitroglycerin/Dextrose (Nitroglycerin Drip) 50 mg in 250 mls @ 0 mls/hr IV .Q0M RELL; Protocol Sodium Nitroprusside 50 mg/ (Dextrose) 252 mls @ 0 mls/hr IV .Q0M RELL; Protocol Labetalol HCl 300 mg/ Sodium (Chloride) 300 mls @ 30 mls/hr IV .Q10H PRN; Protocol PRN Reason: Systolic BP > 140 mmHg Sodium Chloride (Sodium Chloride 0.9%) 1,000 mls @ 50 mls/hr IV .Q20H RELL Last Infusion: 12/04/21 00:27 Dose: Infused Documented by: Insulin Human Regular 250 unit (/ Sodium Chloride) 252.5 mls @ 0 mls/hr IV .Q0M RELL; Protocol Propofol (Diprivan) 1,000 mg in 100 mls @ 0 mls/hr IV .Q0M RELL; Protocol Last Admin: 12/03/21 08:39 Dose: 10 mcg/kg/min, 6.34 mls/hr Documented by: Labetalol HCl (Labetalol 5 Mg/Ml Sdv 20ml) 10 mg IVP Q5M PRN PRN Reason: Systolic BP >140 mmHG Magnesium Hydroxide (Magnesium Hydroxide 30 Ml Udc) 30 ml PO DAILY PRN PRN Reason: CONSTIPATION Midazolam HCl (Midazolam 1 Mg/Ml Inj 2 Ml) 1 mg IVP Q1H PRN PRN Reason: Sedation for [place] score < 4. Morphine Sulfate (Morphine 4 Mg/Ml Sdv 1 Ml) 2 mg IVP Q4H PRN PRN Reason: SEVERE PAIN Morphine Sulfate (Morphine 4 Mg/Ml Sdv 1 Ml) 2 mg IVP Q1H PRN PRN Reason: BREAKTHROUGH PAIN Mupirocin (Mupirocin Oint 22 Gm) 1 applic NASAL BID RELL Last Admin: 12/04/21 09:30 Dose: 1 applic Documented by: Naloxone HCl (Naloxone 0.4 Mg/Ml Sdv) 0.1 mg IVP Q2M PRN PRN Reason: RESPIRATORY RATE < 8/MIN Naloxone HCl (Naloxone 0.4 Mg/Ml Sdv) 0.1 mg IVP Q2M PRN PRN Reason: OPIATERV Nitroglycerin (Nitroglycerin 0.4 Mg Sublingual Tablet) 0.4 mg SUBLINGUAL Q5M PRN PRN Reason: CHEST PAIN Ondansetron HCl (Ondansetron 2 Mg/Ml Sdv 2 Ml) 4 mg IVP Q6H PRN PRN Reason: NAUSEA AND VOMITING Ondansetron HCl (Ondansetron 2 Mg/Ml Sdv 2 Ml) 4 mg IVP Q6H PRN PRN Reason: NAUSEA Oxycodone/Acetaminophen (Oxycodone-Apap 5-325 Mg Tablet) 1 - 2 tab PO Q6H PRN PRN Reason: MILD TO MODERATE PAIN Last Admin: 12/04/21 10:03 Dose: 1 tab Documented by: Temazepam (Temazepam 15 Mg Capsule) 15 mg PO BEDTIME PRN PRN Reason: INSOMNIA Vitals/I&O/Wt Last Vital Signs Temp 98.9 F 12/04/21 03:00 Pulse 85 12/04/21 06:45 Resp 18 12/04/21 10:03 BP 118/64 12/04/21 06:45 Pulse Ox 96 12/04/21 10:03 12/03/21 12/04/21 12/04/21 22:59 06:59 14:59 Intake Total 372.212 / 5726.463 1068.58 / 6795.043 200 / 200 Output Total 1732 / 3152 602 / 3754 1000 / 1000 Balance -1359.788 / 2574.463 466.58 / 3041.043 -800 / -800 Weight last 48 hrs Weight 263 lb Weight 263 lb Physical Exam Narrative: GENERAL: The patient is alert and oriented x3. Not in acute distress. HEENT: Unremarkable.Oral cavity: There are no mucous membrane lesions. NECK: Trachea appears to be central. No masses noted. No JVD or thyromegaly appreciated. RESPIRATORY: Breath sounds are bilaterally with no rales. Occasional expiratory wheezing. No evidence of consolidation BREASTS: Deferred. HEART: The heart sounds are normal.? No S3 or S4. ? No significant murmurs.? No pericardial rub ABDOMEN: No vessel pulsations or distention. No tenderness. No organomegaly appreciated.? Bowel sounds are normally heard. EXTREMITIES: Trace to 1+ edema bilaterally.? No cyanosis. No clubbing. MUSCULOSKELETAL: No acute joint deformities or swelling SKIN: There are no significant rashes or ecchymosis NEUROPSYCHIATRIC: No focal motor deficits. Urinary Catheter Management: Crawley: Cath Placed During This Visit: yes Reason for Continuing Indwelling Catheter: Accurate Measurement of Urinary Output in Critically Ill Patients Urinary Catheter Date of Insertion: 12/02/21 Urinary Catheter Time of Insertion: 08:00 Data : 12/04/21 04:30 12/04/21 04:30 Other Labs: Laboratory Last Values WBC 13.5 10^3/uL (4.0-10.0) H 12/04/21 04:30 RBC 3.80 10^6/uL (4.1-5.3) L 12/04/21 04:30 Hgb 9.9 g/dL (11.7-16.6) L 12/04/21 04:30 Hct 32.4 % (42.0-52.0) L 12/04/21 04:30 MCV 85.3 fl (80-94) 12/04/21 04:30 MCH 26.1 pg (28.0-34.0) L 12/04/21 04:30 MCHC 30.6 g/dL (30.0-36.0) D 12/04/21 04:30 RDW 16.1 % (12.1-15.1) H 12/04/21 04:30 Plt Count 370 10^3/cmm (130-400) 12/04/21 04:30 MPV 11.3 fL (7.4-10.4) H 12/04/21 04:30 Neut % (Auto) 81.8 % 12/04/21 04:30 Lymph % (Auto) 6.9 % 12/04/21 04:30 Howell % (Auto) 9.8 % 12/04/21 04:30 Eos % (Auto) 0.3 % 12/04/21 04:30 Baso % (Auto) 0.5 % 12/04/21 04:30 Neut # (Auto) 11.08 10^3/uL (1.8-7.7) H 12/04/21 04:30 Lymph # (Auto) 0.9 10^3/uL (0.8-4.8) 12/04/21 04:30 Howell # (Auto) 1.3 10^3/uL (0.2-0.9) H 12/04/21 04:30 Eos # (Auto) 0.0 10^3/uL (0.0-0.8) 12/04/21 04:30 Baso # (Auto) 0.1 10^3/uL (0.0-0.1) 12/04/21 04:30 Nucleated RBC % (auto) 0 % 12/04/21 04:30 Total Counted 100 (0-100) 12/02/21 21:24 Atypical Lymphs % 4.0 % (0-5) 12/02/21 21:24 Absolute Neutrophils 16.8 10^3/cmm (1.4-6.5) H 12/02/21 21:24 Segmented Neutrophils 64 % 12/02/21 21:24 Abs Segm Neuts (Man) 12.5 10/cmm (1.6-7.1) H 12/02/21 21:24 Band Neutrophils 22.0 % 12/02/21 21:24 Abs Band Neuts (Man) 4.3 10^3/cmm (0.0-1.2) H 12/02/21 21:24 Absolute Lymphocytes 1.4 10^3/cmm (1.2-3.4) 12/02/21 21:24 Lymphocytes (Manual) 3 % 12/02/21 21:24 Monocytes (Manual) 7.0 % 12/02/21 21:24 Absolute Monocytes 1.4 10^3/cmm (0.1-0.6) H 12/02/21 21:24 Eosinophils (Manual) 0 % 12/02/21 21:24 Absolute Eosinophils 0.0 10^3/cmm (0.0-0.7) 12/02/21 21:24 Basophils (Manual) 0.0 % 12/02/21 21: Absolute Basophils 0.0 10^3/cmm (0.0-0.2) 12/02/21 21:24 Nucleated RBCs # 0.0 /100WBC 12/04/21 04:30 Platelet Estimate Increased (Normal) 12/02/21 21:24 Polychromasia 2+ H 12/02/21 21:24 PT 17.10 SECONDS (12.1-14.9) H 12/03/21 02:30 INR 1.36 (0.8-1.2) H 12/03/21 02:30 APTT 34.4 SECONDS (23.9-36.7) 12/03/21 02:30 Specimen Type Arterial 12/03/21 17:05 Sample Site Brachial, left 12/03/21 17:05 ABG pH 7.43 (7.35-7.45) 12/03/21 17:05 ABG pCO2 33.7 mmHg (35-45) L 12/03/21 17:05 ABG pO2 55.6 mmHg (80.0-100.0) L 12/03/21 17:05 ABG HCO3 22.4 mmol/L (22-26) 12/03/21 17:05 ABG O2 Saturation 91.3 12/03/21 17:05 ABG Base Excess -1.4 mmol/L (-2.0-2.0) 12/03/21 17:05 Maksim Test Pos 12/03/21 17:05 A-a O2 Gradient 15.1 mmHg (5-10) H 12/03/21 17:05 Hematocrit 32.8 % (42-52) L 12/03/21 17:05 Hgb O2 Saturation 90.5 % (95-100) L 12/03/21 17:05 Carboxyhemoglobin 1.0 %THgb (0.4-20.1) 12/03/21 17:05 Methemoglobin < 0.0 % (0.4-1.5) L 12/03/21 17:05 Total Hemoglobin 10.7 g/dL (14-18) L 12/03/21 17:05 Sodium 146.0 mmol/L (131-143) H 12/03/21 17:05 Potassium 4.2 mmol/L (3.5-5.0) 12/03/21 17:05 Glucose 112.0 mg/dL (70-115) 12/03/21 17:05 Ionized Calcium 1.1 mmol/L (1.1-1.4) 12/03/21 17:05 O2 Delivery Device Vent 12/03/21 17:05 FiO2 30.0 % 12/03/21 17:05 Tidal Volume 0.60 12/03/21 05:12 PEEP 5.0 cmH20 12/03/21 17:05 Senior Business Development Analyst ID Cak 12/03/21 17:05 Sodium 146 mmol/L (136-145) H 12/04/21 04:30 Potassium 4.2 mmol/L (3.5-5.1) 12/04/21 04:30 Chloride 113 mmol/L (98-107) H 12/04/21 04:30 Carbon Dioxide 22 mmol/L (22-29) 12/04/21 04:30 Anion Gap 15.2 (5-19) 12/04/21 04:30 BUN 22 mg/dL (8-23) 12/04/21 04:30 Creatinine 1.7 mg/dL (0.7-1.2) H 12/04/21 04:30 GFR Calculation 40.0 mL/min (90-130) L 12/04/21 04:30 Glucose 96 mg/dL (65-115) 12/04/21 04:30 POC Glucose 130 mg/dL (70-110) H 12/04/21 11:00 Fasting Glucose Cancelled 12/03/21 02:30 Calculated Osmolality 305 mOsm/kg (285-295) H 12/04/21 04:30 Calcium 7.6 mg/dL (8.5-10.5) L 12/04/21 04:30 Magnesium 2.4 mg/dL (1.7-2.3) H 12/03/21 02:30 Total Bilirubin 0.5 mg/dL (0.15-1.2) 12/02/21 03:10 Direct Bilirubin 0.20 mg/dL (0.00-0.30) 12/01/21 21:25 AST 14 U/L (0-40) 12/02/21 03:10 ALT 16 U/L (0-41) 12/02/21 03:10 Alkaline Phosphatase 56 IU/L (40-130) 12/02/21 03:10 Troponin T Baseline 70 ng/L (0-15) H 12/01/21 10:30 Troponin T 120 Minute 69.74 ng/L (0-15) H 12/01/21 12:30 Delta Troponin T -0.26 ABS# (0-10) L 12/01/21 12:30 Troponin T Hi Sens 6Hr 68.57 ng/L (0-15) H 12/01/21 16:34 Troponin T Hi Sens 6Hr Delta -1.43 ng/L (0-12) L 12/01/21 16:34 Total Protein 7.2 g/dL (6.6-8.7) 12/02/21 03:10 Albumin 4.1 g/dL (3.5-5.2) 12/02/21 03:10 Globulin 3.1 g/dL (1.3-4.6) 12/02/21 03:10 TSH 2.15 uIU/mL (0.27-4.20) 12/01/21 21:25 Free T4 1.14 ng/dL (0.82-1.77) 12/01/21 21:25 Urine Color Yellow (Yellow) 12/01/21 22:40 Urine Appearance Clear (CLEAR) 12/01/21 22:40 Urine pH 5 (5-7) 12/01/21 22:40 Ur Specific [place] 1.010 (1.005-1.030) 12/01/21 22:40 Urine Protein Neg (Negative) 12/01/21 22:40 Urine Glucose (UA) Norm (Normal) 12/01/21 22:40 Urine Ketones Negative (Negative) 12/01/21 22:40 Urine Blood Neg (Negative) 12/01/21 22:40 Urine Nitrate Negative (Negative) 12/01/21 22:40 Urine Bilirubin Neg (Negative) 12/01/21 22:40 Urine Urobilinogen Norm mg/dL (Negative) 12/01/21 22:40 Ur Leukocyte Esterase Negative (Negative) 12/01/21 22:40 Blood Type O Positive 12/02/21 07:00 Rho(D) Type Positive 12/02/21 07:00 Antibody Screen Negative 12/01/21 21:25 Crossmatch See Detail 12/01/21 21:25 A&P Assessment and plan (1) Atherosclerotic heart disease of [place] coronary artery with unstable angina pectoris: Patient status post three-vessel coronary bypass surgery-hemodynamically seems to be stable. Oxygenation seems to be appropriate. Patient will be started on metoprolol, Lipitor and aspirin. Status: Acute (2) Dyslipidemia: Will be discharged on Lipitor Status: Acute (3) Chronic kidney disease: The BUN/creatinine seems to be fairly stable. At this point, may require a specific intervention. Status: Acute (4) Postoperative anemia: The drop in the hemoglobin is expected. No evidence of any internal or external bleeding May continue on the current medication for the time being. Status: Acute Plan Other problems are the elevated white cell count is coming down. Carotid artery stenosis, stable, continue on the current medications. Aortic valve sclerosis Will be closely monitored on telemetry. Possible chest tube removal tomorrow. Attestations Medical Necessity Statement*: Patient requires continued hospital stay for close monitoring and further management Coding Level of Care Code Acute Plate Put In Worker for Graceg Fwd History Expanded Problem Focused Exam Detailed Medical Decision Making Moderate Complexity Diagnoses Atherosclerotic heart disease of [place] coronary artery with unstable angina pectoris I25.110 Dyslipidemia E78.5 Chronic kidney disease N18.9 Postoperative anemia D64.9
--- NOTE | 2021-12-04 12:38 | PM.PN ---
Subjective Subjective: Postop day #2 status post CABG x3. Mr. Nogueira was extubated yesterday early evening. On Hydroxomin and doing well. His intake and output is still up with his total fluid except probably between 3 and 4 L. He did receive Lasix this morning 20 mg IV in and has had a nice response with approximately 1 L urine output. He is neurologically intact. Other than some discomfort at the mediastinal drain exit point, he is feeling well. He is Rosa. The bed and stood up and taken a couple of steps. He is white blood cell count is continued to trend down now at 13.5. H&H is stable with some mild drop which is probably delusional. Chest tube output 354 cc past 24 hours. Chest x-ray shows no jill infiltrates or effusion. There is mild cardiomegaly which may be somewhat positional and related to the portable exam. Heart rate is drifting up into the mid upper 80s now. [place] catheter and arterial line were removed earlier today. We will remove Cordis this afternoon. Vitals/I&O/Wt Last Vital Signs Temp 98.9 F 12/04/21 03:00 Pulse 85 12/04/21 06:45 Resp 18 12/04/21 10:03 BP 118/64 12/04/21 06:45 Pulse Ox 96 12/04/21 10:03 12/03/21 12/04/21 12/04/21 22:59 06:59 14:59 Intake Total 372.212 / 5726.463 1068.58 / 6795.043 200 / 200 Output Total 1732 / 3152 602 / 3754 1000 / 1000 Balance -1359.788 / 2574.463 466.58 / 3041.043 -800 / -800 Weight last 48 hrs Weight 263 lb Weight 263 lb Physical Exam Const: COMMON NORMALS: patient oriented x3 Chest: OTHER: Surgical dressings are in place. Sternum is stable to palpation. Wound VAC is in good position. Resp: OTHER: Basilar crackles slowly improving expiratory effort. He will need continuous pulmonary toilet. Cardio: OTHER: Regular rate and rhythm without jill murmur. There are some drain tubes rubbing sounds. GI: OTHER: Hypoactive bowel sounds. No distention. Extremity: NARRATIVE EXTREMITY EXAM: 1+ peripheral edema remains. Head and neck edema is increasing. Neuro: COMMON NORMALS: patient oriented x3, no focal motor deficits and no sensory deficits noted Urinary Catheter Management: Crawley: Cath Placed During This Visit: yes Reason for Continuing Indwelling Catheter: Accurate Measurement of Urinary Output in Critically Ill Patients Urinary Catheter Date of Insertion: 12/02/21 Urinary Catheter Time of Insertion: 08:00 Data : 12/04/21 04:30 12/04/21 04:30 A&P Assessment and plan (1) Status post aorto-coronary artery bypass graft: POD #2 status post CABG x3. Making steady progress. Plan: We will continue diuresis and assess need for second dose of Lasix later today. Consider low-dose beta-blockade. Increase pulmonary toilet and activity. The drains and at least another 24 hours as he increases activity and begins ambulation. IV insulin will be segued to subcu insulin as needed per postop cardiac surgery protocol. CBC, BMP, chest x-ray in a.m. I will be off service. Continue management per our cardiology colleagues. Greatly appreciate their expertise and oversight. Status: Acute Attestations Medical Necessity Statement*: Postop day #2 status post CABG x3 Coding Level of Care Code Acute Ferry Captain for Chg Fwd Diagnoses Status post aorto-coronary artery bypass graft Z95.1
[2021-12-04 14:07] LABS: Glucose Point of Care 108 mg/dL (70-110)
--- NOTE | 2021-12-04 15:16 | PC.NURSE ---
ring removed from finger with lotion and string per family request as finger was swelling tight . gold tone ring given to
[2021-12-04] MEDS: metoprolol tartrate 25 mg Tablet 12.5 MG PO ×2 (16:07→21:09)
[2021-12-04 16:41] LABS: Glucose Point of Care 121 mg/dL (70-110)
[2021-12-04] MEDS: morphine 4 mg/mL SDV 1 mL 2 MG IVP (19:16)
[2021-12-04] MEDS: atorvastatin 40 mg Tablet PO (20:34)
[2021-12-05] VITALS (11 sets, daily range): BP systolic 125–154; BP diastolic 58–72; PULSE 63–81; RESP 11–24; TEMP 36.7–37.1; O2SAT 93–95
[2021-12-05] MEDS: morphine 4 mg/mL SDV 1 mL 2 MG IVP ×2 (01:43→06:05)
[2021-12-05] MEDS: oxyCODONE-APAP 5-325 mg Tablet PO ×4 (03:10→22:59)
[2021-12-05 03:29] LABS: Basophils # 0.1 10^3/uL (0.0-0.1); Basophils % 0.7 %; Eosinophils # 0.1 10^3/uL (0.0-0.8); Hematocrit 29.1 % (42.0-52.0); Hemoglobin 9.3 g/dL (11.7-16.6); Lymphocytes % 8.1 %; Mean Corpuscular Hemoglobin 26.3 pg (28.0-34.0); Mean Corpuscular Volume 82.2 fl (80-94); Mean Platelet Volume 11.1 fL (7.4-10.4); Monocytes # 1.1 10^3/uL (0.2-0.9); Monocytes % 8.5 %; Neutrophils # 10.09 10^3/uL (1.8-7.7); Neutrophils % 81.2 %; Nucleated Red Blood Cells % 0 %; Platelet Count 407 10^3/cmm (130-400); Red Blood Count 3.54 10^6/uL (4.1-5.3); Red Cell Distribution Width 15.8 % (12.1-15.1); White Blood Count 12.4 10^3/uL (4.0-10.0)
[2021-12-05 03:50] LABS: Anion Gap 13.1 (5-19); Blood Urea Nitrogen 27 mg/dL (8-23); Calcium 7.9 mg/dL (8.5-10.5); Carbon Dioxide 24 mmol/L (22-29); Chloride 108 mmol/L (98-107); Glucose 114 mg/dL (65-115); Osmolality Calculated 298 mOsm/kg (285-295); Potassium 4.1 mmol/L (3.5-5.1); Sodium 141 mmol/L (136-145)
--- NOTE | 2021-12-05 06:00 | XRR_ITS ---
PROCEDURE INFORMATION: Exam: XR Chest Exam date and time: 12/05/2021 3:54 AM Age: 71 years old Clinical indication: Prior surgery; Surgery date: 3-7 days post-operative; Surgery type: Cabg. Pacer; Patient HX: F/u cabg pod #3; Additional info: Pod#3 S/P cabg: Diuresing TECHNIQUE: Imaging protocol: XR of the chest. Views: 1 view. COMPARISON: CR XR chest 1V portable [id number] 12/04/2021 4:33 AM FINDINGS: Tubes, catheters and devices: A right internal jugular vein central venous line is placed with its tip at the level of the superior vena cava. A sequential bipolar pacemaker is placed via the left subclavian vein. There is stable placement of a left thoracostomy tube. The [place] catheter is been removed. Stable mediastinal drain tube. Lungs: There is mild indistinctness of the pulmonary vasculature and increased interstitial opacities present, findings compatible with pulmonary edema. Pleural spaces: Unremarkable. No pleural effusion. No pneumothorax. Heart/Mediastinum: Unremarkable. No cardiomegaly. Bones/joints: Unremarkable. XR/XR chest 1V portable [id number] IMPRESSION: 1. Interval removal of the [place] catheter. 2. Otherwise stable position life support tubing. 3. Mild indistinctness of the pulmonary vasculature and increased interstitial opacities suggests pulmonary edema.
[2021-12-05] MEDS: FUROsemide 10 mg/mL SDV 2mL 20 MG IVP (08:07)
[2021-12-05 08:57] LABS: Glucose Point of Care 135 mg/dL (70-110)
[2021-12-05] MEDS: metoprolol tartrate 25 mg Tablet 12.5 MG PO (09:02)
[2021-12-05] MEDS: aspirin 81 mg EC Tablet PO (09:02)
[2021-12-05] MEDS: chlorhexidine gluconate 0.12% Btl 473 mL 15 ML MUCOUS MEM ×2 (09:03→16:57)
[2021-12-05] MEDS: mupirocin oint 22 gm 1 APPLIC NASAL ×2 (09:03→16:58)
--- NOTE | 2021-12-05 10:21 | P.CONIM_ITS ---
Providers/Reason For Consult Consulting Physician/Specialty*: Cher Coombs DO, telenephrology Reason for Consult*: chronic kidney disease Attending Physician: Maribel Almeida MD Primary Care Provider: Lucy Puente MD History of Present Illness History of Present Illness Martín Nogueira is a 71 year old male with CKD, admitted with chest pain. Cardiac cath 12/01, 3 vessel CABG 12/02/21. Today, out of bed, no unexpected symptoms. No prior knowledge of CKD. Medications/Allergies Home Medications Medication Instructions Recorded Confirmed Last Taken Type amlodipine 10 mg tablet 10 mg PO DAILY@12 tab 06/25/19 12/01/21 Unknown History aspirin 81 mg tablet,delayed 81 mg PO DAILY@12 tab 06/25/19 12/01/21 Unknown History release (Adult Low Dose Aspirin) rosuvastatin 20 mg tablet 30 mg PO BEDTIME tab 06/25/19 12/01/21 Unknown History nitroglycerin 0.4 mg sublingual 0.4 mg SUBLINGUAL Q5M PRN 30 Days 11/17/21 12/01/21 Unknown Rx tablet #30 tab lisinopril 20 1 tab PO QAM 12/01/21 12/01/21 Unknown History mg-hydrochlorothiazide 25 mg tablet multivitamin 1 tab PO DAILY PRN 12/01/21 12/01/21 Unknown History omega-3 fatty acids 1,000 mg 2,000 mg PO DAILY 12/01/21 12/01/21 Unknown History capsule Allergies Allergy/AdvReac Type Severity Reaction Status Date / Time zolpidem [From Ambien] Allergy Intermediate hallucinati Verified 12/01/21 12:07 ons aspirin Allergy unk Verified 12/01/21 12:07 Current Medications Generic Name Dose Route Start Last Admin Trade Name Freq PRN Reason Stop Dose Admin Aspirin 81 mg 12/03/21 09:00 12/05/21 09:02 Aspirin 81 Mg Ec Tablet PO 81 mg DAILY RELL Administration Atorvastatin Calcium 40 mg 12/03/21 21:00 12/04/21 20:34 Atorvastatin 40 Mg Tablet PO 40 mg BEDTIME RELL Administration Chlorhexidine Gluconate 15 ml 12/02/21 18:25 12/05/21 09:03 Chlorhexidine Gluconate 0.12% Btl 473 Ml MUCOUS MEM 15 ml BID RELL Administration Fentanyl 50 mcg 12/02/21 18:25 12/03/21 18:22 Fentanyl 50 Mcg/Ml Inj 2ml IVP 50 mcg Q1H PRN Administration SEVERE PAIN Dobutamine HCl/Dextrose 500 mg in 250 mls @ 0 mls/hr 12/02/21 18:25 12/03/21 00:00 Dobutamine Drip IV 0 mcg/kg/min .Q0M PRN 0 mls/hr Cardiac Output Titration Protocol Per Protocol Norepinephrine Bitartrate 4 mg 254 mls @ 10.583 mls/hr 12/02/21 18:25 12/04/21 04:00 / Dextrose IV 0 mcg/min .Q24H PRN 0 mls/hr HYPOTENSION Titration Protocol Propofol 1,000 mg in 100 mls @ 0 mls/hr 12/02/21 18:25 12/05/21 00:09 Diprivan IV Infused .Q0M RELL Titration Protocol Per Protocol Morphine Sulfate 2 mg 12/02/21 18:25 12/05/21 06:05 Morphine 4 Mg/Ml Sdv 1 Ml IVP 2 mg Q1H PRN Administration BREAKTHROUGH PAIN Mupirocin 1 applic 12/02/21 09:00 12/05/21 09:03 Mupirocin Oint 22 Gm NASAL 1 applic BID RELL Administration Oxycodone/Acetaminophen 1 - 2 tab 12/02/21 18:25 12/05/21 09:13 Oxycodone-Apap 5-325 Mg Tablet PO 1 tab Q6H PRN Administration MILD TO MODERATE PAIN PFSH Acute PFSH: Medical History Aortic valve sclerosis Atherosclerotic heart disease of [place] coronary artery without angina pectoris Atherosclerotic heart disease of [place] coronary artery without angina pectoris Carotid stenosis Dyslipidemia Essential (primary) hypertension Pacemaker Family History Mother CAD (coronary artery disease) Brother CAD (coronary artery disease) Family/Other CAD (coronary artery disease) Sister Cancer Denies family history of Diabetes Clotting disorder Dementia Chronic kidney disease (CKD) Suicide Anesthesia complication Bleeding disorder Lung disease Stroke Social History Smoking and tobacco status: former smoker Alcohol intake: never Vitals/I&O/Wt Last Vital Signs Temp 98.9 F 12/04/21 03:00 Pulse 74 12/04/21 22:00 Resp 27 H 12/04/21 22:00 BP 114/56 12/04/21 22:00 Pulse Ox 93 12/04/21 22:00 12/04/21 12/05/21 12/05/21 22:59 06:59 14:59 Intake Total 1200 / 1900 200 / 200 Output Total 290 / 1290 805 / 2095 Balance -290 / -590 395 / -195 200 / 200 Weight last 48 hrs Weight 119.295 kg Physical Exam Urinary Catheter Management: Crawley: Cath Placed During This Visit: yes Reason for Continuing Indwelling Catheter: Accurate Measurement of Urinary Output in Critically Ill Patients Urinary Catheter Date of Insertion: 12/02/21 Urinary Catheter Time of Insertion: 08:00 Data : 12/05/21 02:57 12/05/21 02:57 Other Labs: urinalysis normal A&P Assessment and plan (1) Chronic kidney disease (CKD) stage G3a/A1, moderately decreased glomerular filtration rate (GFR) between 45-59 mL/min/1.73 square meter and albuminuria creatinine ratio less than 30 mg/g: Status: Acute Plan seen via telemedicine with assistance of RN at bedside Stable s/p CABG. Good urine output. Electrolytes normal. Chronic kidney disease with normal urinalysis, possibly due to hypertension. No new recommendations. Consult Attestations Medical Necessity Statement: s/p cABG Time Spent in Patient Care: 16 - 35 minutes Coding Level of Care Code Acute Tile Molder Hand for Graceg Fwd Diagnoses Chronic kidney disease (CKD) stage G3a/A1, moderately decreased glomerular filtration rate (GFR) between 45-59 mL/min/1.73 square meter and albuminuria creatinine ratio less than 30 mg/g N18.31
[2021-12-05 17:07] LABS: Glucose Point of Care 128 mg/dL (70-110)
--- NOTE | 2021-12-05 18:40 | PM.PN ---
Subjective Subjective: Patient started ambulating on telemetry. Except for the pain at the sites of incision, he seems to be doing okay. The chest tube drainage is minimal at this point. Telemetry shows 100% AV paced rhythm. Vital signs remained stable. Medications: Medication Review Details: Current Medications Al Hydrox/Mg Hydrox/Simethicone (Dxfl-Sij-Olnmotznc-Lesli 30 Ml Udc) 30 ml PO Q15M PRN PRN Reason: INDIGESTION Aspirin (Aspirin 81 Mg Ec Tablet) 81 mg PO DAILY [facility] Last Admin: 12/05/21 09:02 Dose: 81 mg Documented by: Atorvastatin Calcium (Atorvastatin 40 Mg Tablet) 40 mg PO BEDTIME [facility] Last Admin: 12/04/21 20:34 Dose: 40 mg Documented by: Atropine Sulfate (Atropine 1 Mg/Ml Sdv 1 Ml) 0.5 mg IVP PRN PRN PRN Reason: Symptomatic bradycardia Chlorhexidine Gluconate (Chlorhexidine Gluconate 0.12% Btl 473 Ml) 15 ml MUCOUS MEM BID [facility] Last Admin: 12/05/21 16:57 Dose: 15 ml Documented by: Dextrose (Dextrose 50% Syringe 50 Ml) 25 ml IVP ONCE PRN; Protocol PRN Reason: hypoglycemia protocol Dextrose (Dextrose 50% Syringe 50 Ml) 50 ml IVP PRN PRN; Protocol PRN Reason: hypoglycemia protocol Epinephrine (Racepinephrine 0.5 Ml Neb) 0.5 ml INHALATION Q6H.RESPIRATORY PRN PRN Reason: Stridor Fentanyl (Fentanyl 50 Mcg/Ml Inj 2ml) 50 mcg IVP Q1H PRN PRN Reason: SEVERE PAIN Last Admin: 12/03/21 18:22 Dose: 50 mcg Documented by: Glucagon (Glucagon 1 Mg/Ml Inj 1 Ml) 1 mg IM ONCE PRN; Protocol PRN Reason: Adult Acute Hypoglycemia Prot Hydralazine HCl (Hydralazine 20 Mg/Ml Inj 1 Ml) 5 mg IVP ONCE PRN PRN Reason: Systolic BP > 140 mmHg Dobutamine HCl/Dextrose (Dobutamine Drip) 500 mg in 250 mls @ 0 mls/hr IV .Q0M PRN; Protocol PRN Reason: Cardiac Output Last Titration: 12/03/21 00:00 Dose: 0 mcg/kg/min, 0 mls/hr Documented by: Dopamine HCl/Dextrose (Intropin Drip) 400 mg in 250 mls @ 19.816 mls/hr IV CONT PRN; Protocol PRN Reason: Hypotension Albumin Human (Albumin) 12.5 gm in 250 mls @ 600 mls/hr IV PRN PRN PRN Reason: For CVP < 4 or SBP< 90 Dextrose (D5w) 500 mls @ 100 mls/hr IV ONCE PRN; Protocol PRN Reason: Adult Acute Hypoglycemia Prot Norepinephrine Bitartrate 4 mg (/ Dextrose) 254 mls @ 10.583 mls/hr IV .Q24H PRN; Protocol PRN Reason: HYPOTENSION Last Titration: 12/04/21 04:00 Dose: 0 mcg/min, 0 mls/hr Documented by: Phenylephrine HCl 25 mg/ (Sodium Chloride) 252.5 mls @ 0 mls/hr IV .Q0M PRN; Protocol PRN Reason: HYPOTENSION Nitroglycerin/Dextrose (Nitroglycerin Drip) 50 mg in 250 mls @ 0 mls/hr IV .Q0M RELL; Protocol Sodium Nitroprusside 50 mg/ (Dextrose) 252 mls @ 0 mls/hr IV .Q0M RELL; Protocol Labetalol HCl 300 mg/ Sodium (Chloride) 300 mls @ 30 mls/hr IV .Q10H PRN; Protocol PRN Reason: Systolic BP > 140 mmHg Propofol (Diprivan) 1,000 mg in 100 mls @ 0 mls/hr IV .Q0M RELL; Protocol Last Titration: 12/05/21 00:09 Dose: Infused Documented by: Labetalol HCl (Labetalol 5 Mg/Ml Sdv 20ml) 10 mg IVP Q5M PRN PRN Reason: Systolic BP >140 mmHG Magnesium Hydroxide (Magnesium Hydroxide 30 Ml Udc) 30 ml PO DAILY PRN PRN Reason: CONSTIPATION Metoprolol Tartrate (Metoprolol Tartrate 25 Mg Tablet) 25 mg PO BID@0900,2100 RELL Midazolam HCl (Midazolam 1 Mg/Ml Inj 2 Ml) 1 mg IVP Q1H PRN PRN Reason: Sedation for Santiago score < 4. Morphine Sulfate (Morphine 4 Mg/Ml Sdv 1 Ml) 2 mg IVP Q4H PRN PRN Reason: SEVERE PAIN Morphine Sulfate (Morphine 4 Mg/Ml Sdv 1 Ml) 2 mg IVP Q1H PRN PRN Reason: BREAKTHROUGH PAIN Last Admin: 12/05/21 06:05 Dose: 2 mg Documented by: Mupirocin (Mupirocin Oint 22 Gm) 1 applic NASAL BID RELL Last Admin: 12/05/21 16:58 Dose: 1 applic Documented by: Naloxone HCl (Naloxone 0.4 Mg/Ml Sdv) 0.1 mg IVP Q2M PRN PRN Reason: RESPIRATORY RATE < 8/MIN Naloxone HCl (Naloxone 0.4 Mg/Ml Sdv) 0.1 mg IVP Q2M PRN PRN Reason: OPIATERV Nitroglycerin (Nitroglycerin 0.4 Mg Sublingual Tablet) 0.4 mg SUBLINGUAL Q5M PRN PRN Reason: CHEST PAIN Ondansetron HCl (Ondansetron 2 Mg/Ml Sdv 2 Ml) 4 mg IVP Q6H PRN PRN Reason: NAUSEA AND VOMITING Ondansetron HCl (Ondansetron 2 Mg/Ml Sdv 2 Ml) 4 mg IVP Q6H PRN PRN Reason: NAUSEA Oxycodone/Acetaminophen (Oxycodone-Apap 5-325 Mg Tablet) 1 - 2 tab PO Q6H PRN PRN Reason: MILD TO MODERATE PAIN Last Admin: 12/05/21 16:57 Dose: 1 tab Documented by: Temazepam (Temazepam 15 Mg Capsule) 15 mg PO BEDTIME PRN PRN Reason: INSOMNIA Vitals/I&O/Wt Last Vital Signs Temp 98.9 F 12/04/21 03:00 Pulse 74 12/05/21 14:00 Resp 22 H 12/05/21 16:57 BP 114/56 12/04/21 22:00 Pulse Ox 93 12/04/21 22:00 12/05/21 12/05/21 12/05/21 06:59 14:59 22:59 Intake Total 1200 / 1900 700 / 700 300 / 1000 Output Total 805 / 2095 1500 / 1500 Balance 395 / -195 700 / 700 -1200 / -500 Weight last 48 hrs Weight 263 lb Physical Exam Narrative: GENERAL: The patient is alert and oriented x3.? Not in acute distress. HEENT: Unremarkable.Oral cavity: There are no mucous membrane lesions. NECK: Trachea appears to be central. No masses noted. No JVD or thyromegaly appreciated. Central venous catheter is in place. RESPIRATORY: Breath sounds are bilaterally with no rales.? Occasional expiratory wheezing.? Few coarse crackles at the bases no evidence of consolidation BREASTS: Deferred. The chest tube is in place. HEART: The heart sounds are normal.? No S3 or S4. ? No significant murmurs.? No pericardial rub ABDOMEN: No vessel pulsations or distention. No tenderness. No organomegaly appreciated.? Bowel sounds are normally heard. EXTREMITIES: Trace to 1+ edema bilaterally.? No cyanosis. No clubbing. MUSCULOSKELETAL: No acute joint deformities or swelling SKIN: There are no significant rashes or ecchymosis NEUROPSYCHIATRIC: No focal motor deficits. Urinary Catheter Management: Crawley: Cath Placed During This Visit: yes Reason for Continuing Indwelling Catheter: Accurate Measurement of Urinary Output in Critically Ill Patients Urinary Catheter Date of Insertion: 12/02/21 Urinary Catheter Time of Insertion: 08:00 Data : 12/05/21 02:57 12/05/21 02:57 A&P Assessment and plan (1) Atherosclerotic heart disease of [place] coronary artery with unstable angina pectoris: Patient status post three-vessel coronary bypass surgery-hemodynamically seems to be stable. He is on day #4. Currently has no specific symptoms. We will continue on the beta-kathleen, aspirin, statin. Status: Acute (2) Dyslipidemia: Patient may continue the Lipitor. I will go ahead and do a lipid profile in the morning. Dose of the medication will be adjusted accordingly. Status: Acute (3) Chronic kidney disease: The BUN/creatinine seems to be fairly stable. At this point, may require a specific intervention. Status: Acute (4) Postoperative anemia: The drop in the hemoglobin is expected. No evidence of any internal or external bleeding May continue on the current medication for the time being. We will keep a close eye on the hemoglobin hematocrit. Status: Acute Plan Other problems are the elevated white cell count is coming down. Carotid artery stenosis, stable, continue on the current medications. Aortic valve sclerosis Will be closely monitored on telemetry. Possible chest tube removal tomorrow. Possible discontinuing of the chest tube and the central venous catheter tomorrow Attestations Medical Necessity Statement*: Patient requires continued hospital stay for close monitoring and further management Coding Level of Care Code Acute Dixonac Operator for Jose Fwd History Expanded Problem Focused Exam Detailed Medical Decision Making Moderate Complexity Diagnoses Atherosclerotic heart disease of [place] coronary artery with unstable angina pectoris I25.110 Dyslipidemia E78.5 Chronic kidney disease N18.9 Postoperative anemia D64.9
--- NOTE | 2021-12-05 20:39 | PC.NURSE ---
Gentle bubbling in suction control chambers of chest tubes.
[2021-12-05] MEDS: metoprolol tartrate 25 mg Tablet PO (20:59)
[2021-12-05] MEDS: atorvastatin 40 mg Tablet PO (20:59)
--- NOTE | 2021-12-05 21:05 | PC.NURSE ---
No measurable output noted from chest tubes at this time.
--- NOTE | 2021-12-05 21:06 | PC.NURSE ---
Bilateral groin incision dressings dry and intact.
--- NOTE | 2021-12-05 21:08 | PC.NURSE ---
Percocet not due until 2300. Pt does not wish to take morphine. Pt wishes for staff to let me rest, until time for pain medications.
--- NOTE | 2021-12-05 23:17 | PC.NURSE ---
Pt reports that he can't deep breathe and cough because of pain. Pt educated regarding use of morphine for breakthrough pain if needed, because of the importance of pulmonary hygiene. Pt verbalized understanding. Pt's lung sounds clear, but more dim on the left side.
[2021-12-06] VITALS (17 sets, daily range): BP systolic 108–146; BP diastolic 58–76; PULSE 60–79; RESP 10–24; TEMP 36.4–36.8; O2SAT 92–96
--- NOTE | 2021-12-06 00:06 | PC.NURSE ---
Pt resting quietly in bed with eyes closed. Respirations even and unlabored.
[2021-12-06 03:43] LABS: Basophils # 0.1 10^3/uL (0.0-0.1); Basophils % 0.8 %; Eosinophils % 0.1 %; Hematocrit 27.8 % (42.0-52.0); Hemoglobin 8.9 g/dL (11.7-16.6); Lymphocytes # 1.3 10^3/uL (0.8-4.8); Lymphocytes % 12.3 %; Mean Corpuscular Hemoglobin 25.6 pg (28.0-34.0); Mean Corpuscular Volume 80.1 fl (80-94); Monocytes # 1.1 10^3/uL (0.2-0.9); Neutrophils # 8.34 10^3/uL (1.8-7.7); Neutrophils % 76.3 %; Nucleated Red Blood Cells % 0 %; Platelet Count 453 10^3/cmm (130-400); Red Blood Count 3.47 10^6/uL (4.1-5.3); Red Cell Distribution Width 15.4 % (12.1-15.1); White Blood Count 10.9 10^3/uL (4.0-10.0)
[2021-12-06 04:07] LABS: Blood Urea Nitrogen 31 mg/dL (8-23); Carbon Dioxide 26 mmol/L (22-29); Chloride 106 mmol/L (98-107); Chol HDL Ratio 8.45 mg/dL (1.0-5.00); Cholesterol 169 mg/dL (0-200); Glomerular Filtration Rate 46.3 mL/min (90-130); Glucose 102 mg/dL (65-115); HDL Cholesterol 20 mg/dL (60-100); LDL Cholesterol Calculated 113 mg/dL (50-129); LDL HDL Ratio 5.65 RATIO (0.00-3.22); Osmolality Calculated 299 mOsm/kg (285-295); Sodium 141 mmol/L (136-145); Triglycerides 178 mg/dL (0-150)
--- NOTE | 2021-12-06 06:00 | XRR_ITS ---
PROCEDURE INFORMATION: Exam: XR Chest Exam date and time: 12/06/2021 5:23 AM Age: 71 years old Clinical indication: Dyspnea; Prior surgery; Surgery date: 3-7 days post-operative; Surgery type: Cabg; Additional info: Pod#4 S/P cabg: Continuing diuresis TECHNIQUE: Imaging protocol: XR of the chest. Views: 1 view. COMPARISON: CR (CHEST, ) 12/05/2021 3:54 AM FINDINGS: Tubes, catheters and devices: Left-sided cardiac pacemaker again noted. Stable position of right central venous catheter. Lungs: No definite CHF/pulmonary edema. Stable left lower lung opacities could represent atelectasis and/or pneumonia. Interval clearing of previous right lower lung opacities. Pleural spaces: No visible pneumothorax. There may be a small amount of left pleural fluid. Heart/Mediastinum: Stable cardiomegaly. Bones/joints: Prior median sternotomy. XR/XR chest 1V portable [id number] IMPRESSION: 1. Stable left lung opacities could represent atelectasis and/or pneumonia. Interval clearing of previous right lower lung opacities. 2. Other findings discussed above.
[2021-12-06] MEDS: oxyCODONE-APAP 5-325 mg Tablet PO ×2 (06:05→11:11)
--- NOTE | 2021-12-06 06:25 | PC.NURSE ---
Left thigh dressing heavily saturated with yellowish green dried drainage. Dressing changed. Incision appears clean without drainage noted.
--- NOTE | 2021-12-06 07:18 | P.PN_ITS ---
Subjective Subjective: Doing well Vitals/I&O/Wt Last Vital Signs Temp 97.6 F 12/06/21 03:30 Pulse 79 12/06/21 06:00 Resp 21 H 12/06/21 06:05 BP 131/68 12/06/21 06:00 Pulse Ox 92 12/06/21 06:05 12/05/21 12/06/21 12/06/21 22:59 06:59 14:59 Intake Total 300 / 1000 300 / 1300 Output Total 2040 / 2040 770 / 2810 Balance -1740 / -1040 -470 / -1510 Weight last 48 hrs Weight 116.483 kg Physical Exam Urinary Catheter Management: Crawley: Cath Placed During This Visit: yes Reason for Continuing Indwelling Catheter: Accurate Measurement of Urinary Output in Critically Ill Patients Urinary Catheter Date of Insertion: 12/02/21 Urinary Catheter Time of Insertion: 08:00 Data : 12/06/21 03:15 12/06/21 03:15 A&P Assessment and plan (1) Chronic kidney disease (CKD) stage G3a/A1, moderately decreased glomerular filtration rate (GFR) between 45-59 mL/min/1.73 square meter and albuminuria creatinine ratio less than 30 mg/g: Status: Acute Plan seen via telemedicine with assistance of RN at bedside Stable s/p CABG. Good urine output. Electrolytes normal. Chronic kidney disease with normal urinalysis, possibly due to hypertension. No new recommendations. Attestations Medical Necessity Statement*: per primary service Time Spent in Patient Care: less than 15 minutes Coding Level of Care Code Acute Firer Electric Locomotive for [facility] Fwd Diagnoses Chronic kidney disease (CKD) stage G3a/A1, moderately decreased glomerular filtration rate (GFR) between 45-59 mL/min/1.73 square meter and albuminuria creatinine ratio less than 30 mg/g N18.31
[2021-12-06 08:01] LABS: Glucose Point of Care 108 mg/dL (70-110)
--- NOTE | 2021-12-06 08:06 | PC.SOCIAL ---
IMM updated IMM dated and initialed and copy put in chart and given to patient
[2021-12-06] MEDS: aspirin 81 mg EC Tablet PO (08:42)
[2021-12-06] MEDS: metoprolol tartrate 25 mg Tablet PO ×2 (08:42→21:05)
--- NOTE | 2021-12-06 09:52 | P.PN_ITS ---
Subjective Subjective: POD #4 status post CABG x3. Intake and output is -1500 cc past 24 hours. Creatinine has drifted down from 1.7-1.5. White count is drifted down to 10,000. No arrhythmias reported by nursing service. Afebrile. Vital signs stable. Has ambulated well. Diet has been advanced to cardiac. Positive flatus. Chest x-ray revealed some mild improvement in lower field vasculature with perhaps a small left effusion. Cardiac silhouette is stable. Vitals/I&O/Wt Last Vital Signs Temp 97.6 F 12/06/21 03:30 Pulse 79 12/06/21 06:00 Resp 21 H 12/06/21 06:05 BP 131/68 12/06/21 06:00 Pulse Ox 92 12/06/21 06:05 12/05/21 12/06/21 12/06/21 22:59 06:59 14:59 Intake Total 300 / 1000 300 / 1300 473 / 473 Output Total 2040 / 2040 770 / 2810 250 / 250 Balance -1740 / -1040 -470 / -1510 223 / 223 Weight last 48 hrs Weight 256 lb 12.8 oz Physical Exam Chest: OTHER: Wound VAC dressing removed. Pacing wire and chest tubes removed. Resp: OTHER: improving breath sounds in lower lobes with fine crackles Cardio: COMMON NORMALS: regular rate, regular rhythm, S1 normal heart sound present and No murmurs present (Cardio) RATE: regular rate RHYTHM: regular rhythm HEART SOUNDS: S1 normal heart sound present GI: OTHER: Soft. Hypoactive bowel sounds Extremity: OTHER: Peripheral edema is improving. Urinary Catheter Management: Crawley: Cath Placed During This Visit: yes, but has since been removed by the nurse Reason for Continuing Indwelling Catheter: Decision to DC Catheter Urinary Catheter Date of Insertion: 12/02/21 Urinary Catheter Time of Insertion: 08:00 Date Urinary Catheter Removed: 12/06/21 Time Urinary Catheter Discontinued: 08:20 Data : 12/06/21 03:15 12/06/21 03:15 A&P Assessment and plan (1) Status post aorto-coronary artery bypass graft: POD #4 status post CABG x3 Improving renal function. Plan: Lasix 20 mg p.o. this morning. BMP, chest x-ray in a.m. Continued ambulation and increased use of incentive spirometer. I will leave wound VAC dressing in place for 1 more day. May transfer to [facility] if ICU bed is needed otherwise would leave in ICU for 1 more day. I appreciate the oversight expertise and recommendations of nephrology colleagues. Appreciate cardiology recommendations and oversight. Status: Acute Attestations Medical Necessity Statement*: Postop day #4 status CABG x3 Coding Level of Care Code Acute Fur Floor Worker for Chg Fwd Diagnoses Status post aorto-coronary artery bypass graft Z95.1
[2021-12-06] MEDS: FUROsemide 20 mg Tablet PO (11:12)
--- NOTE | 2021-12-06 15:16 | PC.NURSE ---
chest tubes out up in [place] ambulated no distress noted .. some drainage noted from left thigh area .. dressing changed betadine applied to area..
--- NOTE | 2021-12-06 20:26 | P.PN_ITS ---
Subjective Subjective: Patient had a chest tubes discontinued today. Feeling better. Vital signs are stable. Imaging shows ventricular paced rhythm. No fever or chills. Medications: Medication Review Details: Current Medications Al Hydrox/Mg Hydrox/Simethicone (Tgle-Opd-Wphkgpzjw-Lesli 30 Ml Udc) 30 ml PO Q15M PRN PRN Reason: INDIGESTION Aspirin (Aspirin 81 Mg Ec Tablet) 81 mg PO DAILY [facility] Last Admin: 12/06/21 08:42 Dose: 81 mg Documented by: Atorvastatin Calcium (Atorvastatin 40 Mg Tablet) 40 mg PO BEDTIME [facility] Last Admin: 12/05/21 20:59 Dose: 40 mg Documented by: Atropine Sulfate (Atropine 1 Mg/Ml Sdv 1 Ml) 0.5 mg IVP PRN PRN PRN Reason: Symptomatic bradycardia Chlorhexidine Gluconate (Chlorhexidine Gluconate 0.12% Btl 473 Ml) 15 ml MUCOUS MEM BID [facility] Last Admin: 12/06/21 13:47 Dose: Not Given Documented by: Dextrose (Dextrose 50% Syringe 50 Ml) 25 ml IVP ONCE PRN; Protocol PRN Reason: hypoglycemia protocol Dextrose (Dextrose 50% Syringe 50 Ml) 50 ml IVP PRN PRN; Protocol PRN Reason: hypoglycemia protocol Epinephrine (Racepinephrine 0.5 Ml Neb) 0.5 ml INHALATION Q6H.RESPIRATORY PRN PRN Reason: Stridor Glucagon (Glucagon 1 Mg/Ml Inj 1 Ml) 1 mg IM ONCE PRN; Protocol PRN Reason: Adult Acute Hypoglycemia Prot Hydralazine HCl (Hydralazine 20 Mg/Ml Inj 1 Ml) 5 mg IVP ONCE PRN PRN Reason: Systolic BP > 140 mmHg Dobutamine HCl/Dextrose (Dobutamine Drip) 500 mg in 250 mls @ 0 mls/hr IV .Q0M PRN; Protocol PRN Reason: Cardiac Output Last Titration: 12/03/21 00:00 Dose: 0 mcg/kg/min, 0 mls/hr Documented by: Dopamine HCl/Dextrose (Intropin Drip) 400 mg in 250 mls @ 19.816 mls/hr IV CONT PRN; Protocol PRN Reason: Hypotension Albumin Human (Albumin) 12.5 gm in 250 mls @ 600 mls/hr IV PRN PRN PRN Reason: For CVP < 4 or SBP< 90 Dextrose (D5w) 500 mls @ 100 mls/hr IV ONCE PRN; Protocol PRN Reason: Adult Acute Hypoglycemia Prot Norepinephrine Bitartrate 4 mg (/ Dextrose) 254 mls @ 10.583 mls/hr IV .Q24H PRN; Protocol PRN Reason: HYPOTENSION Last Titration: 12/05/21 20:50 Dose: Infused Documented by: Phenylephrine HCl 25 mg/ (Sodium Chloride) 252.5 mls @ 0 mls/hr IV .Q0M PRN; Protocol PRN Reason: HYPOTENSION Nitroglycerin/Dextrose (Nitroglycerin Drip) 50 mg in 250 mls @ 0 mls/hr IV .Q0M RELL; Protocol Sodium Nitroprusside 50 mg/ (Dextrose) 252 mls @ 0 mls/hr IV .Q0M RELL; Protocol Labetalol HCl 300 mg/ Sodium (Chloride) 300 mls @ 30 mls/hr IV .Q10H PRN; Protocol PRN Reason: Systolic BP > 140 mmHg Propofol (Diprivan) 1,000 mg in 100 mls @ 0 mls/hr IV .Q0M RELL; Protocol Last Titration: 12/05/21 00:09 Dose: Infused Documented by: Labetalol HCl (Labetalol 5 Mg/Ml Sdv 20ml) 10 mg IVP Q5M PRN PRN Reason: Systolic BP >140 mmHG Magnesium Hydroxide (Magnesium Hydroxide 30 Ml Udc) 30 ml PO DAILY PRN PRN Reason: CONSTIPATION Metoprolol Tartrate (Metoprolol Tartrate 25 Mg Tablet) 25 mg PO BID@0900,2100 [facility] Last Admin: 12/06/21 08:42 Dose: 25 mg Documented by: Mupirocin (Mupirocin Oint 22 Gm) 1 applic NASAL BID [facility] Last Admin: 12/06/21 13:48 Dose: Not Given Documented by: Naloxone HCl (Naloxone 0.4 Mg/Ml Sdv) 0.1 mg IVP Q2M PRN PRN Reason: RESPIRATORY RATE < 8/MIN Naloxone HCl (Naloxone 0.4 Mg/Ml Sdv) 0.1 mg IVP Q2M PRN PRN Reason: OPIATERV Nitroglycerin (Nitroglycerin 0.4 Mg Sublingual Tablet) 0.4 mg SUBLINGUAL Q5M PRN PRN Reason: CHEST PAIN Ondansetron HCl (Ondansetron 2 Mg/Ml Sdv 2 Ml) 4 mg IVP Q6H PRN PRN Reason: NAUSEA AND VOMITING Ondansetron HCl (Ondansetron 2 Mg/Ml Sdv 2 Ml) 4 mg IVP Q6H PRN PRN Reason: NAUSEA Vitals/I&O/Wt Last Vital Signs Temp 97.6 F 12/06/21 03:30 Pulse 67 12/06/21 14:51 Resp 20 H 12/06/21 14:51 BP 139/59 12/06/21 14:51 Pulse Ox 92 12/06/21 06:05 12/06/21 12/06/21 12/06/21 06:59 14:59 22:59 Intake Total 300 / 1300 1123 / 1123 Output Total 770 / 2810 600 / 600 350 / 950 Balance -470 / -1510 523 / 523 -350 / 173 Weight last 48 hrs Weight 256 lb 12.8 oz Physical Exam Narrative: GENERAL: The patient is alert and oriented x3.? Not in acute distress. HEENT: Unremarkable.Oral cavity: There are no mucous membrane lesions. NECK: Trachea appears to be central. No masses noted. No JVD or thyromegaly ap preciated.? Central venous catheter is in place. RESPIRATORY: Breath sounds are bilaterally with slightly diminished breath sounds in the bases. BREASTS: Deferred.? The chest tube is in place. HEART: The heart sounds are normal.? No S3 or S4. ? No significant murmurs.? No pericardial rub ABDOMEN: No vessel pulsations or distention. No tenderness. No organomegaly appreciated.? Bowel sounds are normally heard. EXTREMITIES: 1 edema bilaterally.? No cyanosis. No clubbing. MUSCULOSKELETAL: No acute joint deformities or swelling SKIN: There are no significant rashes or ecchymosis NEUROPSYCHIATRIC: No focal motor deficits. Urinary Catheter Management: Crawley: Cath Placed During This Visit: yes, but has since been removed by the nurse Reason for Continuing Indwelling Catheter: Decision to DC Catheter Urinary Catheter Date of Insertion: 12/02/21 Urinary Catheter Time of Insertion: 08:00 Date Urinary Catheter Removed: 12/06/21 Time Urinary Catheter Discontinued: 08:20 Data : 12/06/21 03:15 12/06/21 03:15 A&P Assessment and plan (1) Atherosclerotic heart disease of [place] coronary artery with unstable angina pectoris: Patient status post three-vessel coronary bypass surgery-hemodynamically seems to be stable. He is on day #4. Currently has no specific symptoms. We will continue on the beta-kathleen, aspirin, statin. Status: Acute (2) Dyslipidemia: Patient may continue the Lipitor. I will go ahead and do a lipid profile in the morning. Dose of the medication will be adjusted accordingly. Status: Acute (3) Chronic kidney disease: The BUN/creatinine seems to be fairly stable. At this point, may require a specific intervention. Status: Acute (4) Postoperative anemia: The drop in the hemoglobin is expected. No evidence of any internal or external bleeding May continue on the current medication for the time being. We will keep a close eye on the hemoglobin hematocrit. Status: Acute (5) Essential (primary) hypertension: Blood pressure is a stage II. I may go ahead and restart the lisinopril 40 mg p.o. daily Status: Acute Plan Other problems are the elevated white cell count is coming down. Carotid artery stenosis, stable, continue on the current medications. Aortic valve sclerosis Continue phase 1 cardiac rehab Attestations Medical Necessity Statement*: Patient requires continued hospital stay for close monitoring and further management Coding Level of Care Code Acute Preparation Supervisor Freezing for Jose Fwd History Expanded Problem Focused Exam Detailed Medical Decision Making Moderate Complexity Diagnoses Atherosclerotic heart disease of [place] coronary artery with unstable angina pectoris I25.110 Dyslipidemia E78.5 Chronic kidney disease N18.9 Postoperative anemia D64.9 Essential (primary) hypertension I10
[2021-12-06] MEDS: oxyCODONE-APAP 5-325 mg Tablet 1 TAB PO (21:03)
[2021-12-06] MEDS: atorvastatin 40 mg Tablet PO (21:03)
[2021-12-06] MEDS: temazepam 15 mg Capsule PO (21:03)
[2021-12-07] VITALS (14 sets, daily range): BP systolic 98–151; BP diastolic 51–61; PULSE 63–77; RESP 12–18; TEMP 36.9; O2SAT 86–96
[2021-12-07 04:31] LABS: Anion Gap 12.2 (5-19); Blood Urea Nitrogen 30 mg/dL (8-23); Calcium 8.3 mg/dL (8.5-10.5); Carbon Dioxide 27 mmol/L (22-29); Chloride 106 mmol/L (98-107); Glomerular Filtration Rate 50.1 mL/min (90-130); Glucose 92 mg/dL (65-115); Osmolality Calculated 298 mOsm/kg (285-295); Potassium 4.2 mmol/L (3.5-5.1); Sodium 141 mmol/L (136-145)
--- NOTE | 2021-12-07 05:56 | PC.NURSE ---
Addendum entered by Darcy Ramírez RN 12/07/21 21:48: Verbal order to remove central line. Original Note: Dr. Jimenez removed wound vac and placed island dressing over sternal incision. Verbal order given to remove central dressing. Patient is up to chair this morning. Large bowel movement during pm shift.
--- NOTE | 2021-12-07 06:00 | XRR_ITS ---
PROCEDURE INFORMATION: Exam: XR Chest Exam date and time: 12/07/2021 6:11 AM Age: 71 years old Clinical indication: Device placement; Prior surgery; Surgery date: Post-operative (0-2 days); Surgery type: Status post cabg/drains removed; Additional info: Pod #5 status post cabg; Drains removed TECHNIQUE: Imaging protocol: XR of the chest. Views: 1 view. COMPARISON: CR (CHEST, ) 12/06/2021 5:23 AM FINDINGS: Tubes, catheters and devices: Cardiac rhythm maintenance device is in place. Right IJ central venous catheter terminates in the region of the distal SVC. Lungs: Mild left basilar atelectasis. Pleural spaces: Small left pleural effusion. No pneumothorax. Heart/Mediastinum: Changes of prior CABG. Bones/joints: Unremarkable. XR/XR chest 1V portable [id number] IMPRESSION: Postsurgical changes of CABG with mild left basilar atelectasis and small left pleural effusion.
--- NOTE | 2021-12-07 07:33 | P.PN_ITS ---
Subjective Subjective: Postop day #5 status post CABG x3. Uneventful night. Bowel movement yesterday afternoon. Wound VAC dressing removed. Sternotomy incision clean, dry, intact. New dressing applied. Bowel movement yesterday afternoon.Intake and output 24 hours Intake and output even with past 24 hours I think he is at least still 1 L positive. Vitals/I&O/Wt Last Vital Signs Temp 98.3 F 12/06/21 20:00 Pulse 72 12/07/21 06:00 Resp 15 12/07/21 02:00 BP 133/61 12/07/21 02:00 Pulse Ox 95 12/07/21 02:00 12/06/21 12/07/21 12/07/21 22:59 06:59 14:59 Intake Total 600 / 1723 Output Total 350 / 950 700 / 1650 Balance -350 / 173 -100 / 73 Weight last 48 hrs Weight 256 lb 12.8 oz Physical Exam Chest: COMMONS NORMALS: normal inspection of the chest and normal palpation of entire chest wall OTHER: Sternotomy incision is clean, dry, and intact. Wound VAC dressing removed. Sterile dressing reapplied. Resp: COMMON NORMALS: normal respiratory effort and clear to auscultation bilaterally AUSCULTATION: clear to auscultation bilaterally Cardio: COMMON NORMALS: regular rate, regular rhythm and S1 normal heart sound present RATE: regular rate RHYTHM: regular rhythm HEART SOUNDS: S1 normal heart sound present Extremity: NARRATIVE EXTREMITY EXAM: Still with some mild peripheral edema, improved. Urinary Catheter Management: Crawley: Cath Placed During This Visit: yes, but has since been removed by the nurse Reason for Continuing Indwelling Catheter: Decision to DC Catheter Urinary Catheter Date of Insertion: 12/02/21 Urinary Catheter Time of Insertion: 08:00 Date Urinary Catheter Removed: 12/06/21 Time Urinary Catheter Discontinued: 08:20 Data : 12/06/21 03:15 12/07/21 03:36 A&P Assessment and plan (1) Status post aorto-coronary artery bypass graft: Postop day #5 Plan: Transfer to [facility]. Prophylactic subcutaneous Lovenox. Further disposition and medication management per our cardiology colleagues. Status: Acute Attestations Medical Necessity Statement*: POD #5 status post CABG Coding Level of Care Code Acute Nuclear Fuels Research Engineer for Jose Fwd Diagnoses Status post aorto-coronary artery bypass graft Z95.1
--- NOTE | 2021-12-07 08:16 | PM.PN ---
Subjective Subjective: feels well. no n/v/f/cp/anthony/ d. using wy 02 Medications: Reviewed: Yes Medication Review Details: Current Medications Al Hydrox/Mg Hydrox/Simethicone (Ixpn-Nns-Nqbnwtrxv-Lesli 30 Ml Udc) 30 ml PO Q15M PRN PRN Reason: INDIGESTION Aspirin (Aspirin 81 Mg Ec Tablet) 81 mg PO DAILY [facility] Last Admin: 12/06/21 08:42 Dose: 81 mg Documented by: Atorvastatin Calcium (Atorvastatin 40 Mg Tablet) 40 mg PO BEDTIME [facility] Last Admin: 12/06/21 21:03 Dose: 40 mg Documented by: Atropine Sulfate (Atropine 1 Mg/Ml Sdv 1 Ml) 0.5 mg IVP PRN PRN PRN Reason: Symptomatic bradycardia Chlorhexidine Gluconate (Chlorhexidine Gluconate 0.12% Btl 473 Ml) 15 ml MUCOUS MEM BID [facility] Last Admin: 12/07/21 07:32 Dose: Not Given Documented by: Dextrose (Dextrose 50% Syringe 50 Ml) 25 ml IVP ONCE PRN; Protocol PRN Reason: hypoglycemia protocol Dextrose (Dextrose 50% Syringe 50 Ml) 50 ml IVP PRN PRN; Protocol PRN Reason: hypoglycemia protocol Epinephrine (Racepinephrine 0.5 Ml Neb) 0.5 ml INHALATION Q6H.RESPIRATORY PRN PRN Reason: Stridor Glucagon (Glucagon 1 Mg/Ml Inj 1 Ml) 1 mg IM ONCE PRN; Protocol PRN Reason: Adult Acute Hypoglycemia Prot Hydralazine HCl (Hydralazine 20 Mg/Ml Inj 1 Ml) 5 mg IVP ONCE PRN PRN Reason: Systolic BP > 140 mmHg Dobutamine HCl/Dextrose (Dobutamine Drip) 500 mg in 250 mls @ 0 mls/hr IV .Q0M PRN; Protocol PRN Reason: Cardiac Output Last Titration: 12/03/21 00:00 Dose: 0 mcg/kg/min, 0 mls/hr Documented by: Dopamine HCl/Dextrose (Intropin Drip) 400 mg in 250 mls @ 19.816 mls/hr IV CONT PRN; Protocol PRN Reason: Hypotension Albumin Human (Albumin) 12.5 gm in 250 mls @ 600 mls/hr IV PRN PRN PRN Reason: For CVP < 4 or SBP< 90 Dextrose (D5w) 500 mls @ 100 mls/hr IV ONCE PRN; Protocol PRN Reason: Adult Acute Hypoglycemia Prot Norepinephrine Bitartrate 4 mg (/ Dextrose) 254 mls @ 10.583 mls/hr IV .Q24H PRN; Protocol PRN Reason: HYPOTENSION Last Titration: 12/05/21 20:50 Dose: Infused Documented by: Phenylephrine HCl 25 mg/ (Sodium Chloride) 252.5 mls @ 0 mls/hr IV .Q0M PRN; Protocol PRN Reason: HYPOTENSION Nitroglycerin/Dextrose (Nitroglycerin Drip) 50 mg in 250 mls @ 0 mls/hr IV .Q0M RELL; Protocol Sodium Nitroprusside 50 mg/ (Dextrose) 252 mls @ 0 mls/hr IV .Q0M RELL; Protocol Labetalol HCl 300 mg/ Sodium (Chloride) 300 mls @ 30 mls/hr IV .Q10H PRN; Protocol PRN Reason: Systolic BP > 140 mmHg Propofol (Diprivan) 1,000 mg in 100 mls @ 0 mls/hr IV .Q0M RELL; Protocol Last Titration: 12/05/21 00:09 Dose: Infused Documented by: Labetalol HCl (Labetalol 5 Mg/Ml Sdv 20ml) 10 mg IVP Q5M PRN PRN Reason: Systolic BP >140 mmHG Lisinopril (Lisinopril 20 Mg Tablet) 20 mg PO DAILY [facility] Magnesium Hydroxide (Magnesium Hydroxide 30 Ml Udc) 30 ml PO DAILY PRN PRN Reason: CONSTIPATION Metoprolol Tartrate (Metoprolol Tartrate 25 Mg Tablet) 25 mg PO BID@0900,2100 [facility] Last Admin: 12/06/21 21:05 Dose: 25 mg Documented by: Morphine Sulfate (Morphine 4 Mg/Ml Sdv 1 Ml) 2 mg IVP Q1H PRN PRN Reason: SEVERE PAIN Mupirocin (Mupirocin Oint 22 Gm) 1 applic NASAL BID [facility] Last Admin: 12/06/21 21:06 Dose: Not Given Documented by: Naloxone HCl (Naloxone 0.4 Mg/Ml Sdv) 0.1 mg IVP Q2M PRN PRN Reason: RESPIRATORY RATE < 8/MIN Naloxone HCl (Naloxone 0.4 Mg/Ml Sdv) 0.1 mg IVP Q2M PRN PRN Reason: OPIATERV Nitroglycerin (Nitroglycerin 0.4 Mg Sublingual Tablet) 0.4 mg SUBLINGUAL Q5M PRN PRN Reason: CHEST PAIN Ondansetron HCl (Ondansetron 2 Mg/Ml Sdv 2 Ml) 4 mg IVP Q6H PRN PRN Reason: NAUSEA AND VOMITING Ondansetron HCl (Ondansetron 2 Mg/Ml Sdv 2 Ml) 4 mg IVP Q6H PRN PRN Reason: NAUSEA Oxycodone/Acetaminophen (Oxycodone-Apap 5-325 Mg Tablet) 1 tab PO Q4H PRN PRN Reason: MODERATE PAIN Last Admin: 12/06/21 21:03 Dose: 1 tab Documented by: Temazepam (Temazepam 15 Mg Capsule) 15 mg PO BEDTIME PRN PRN Reason: INSOMNIA Last Admin: 12/06/21 21:03 Dose: 15 mg Documented by: Tramadol HCl (Tramadol 50 Mg Tablet) 50 mg PO Q6H PRN PRN Reason: MODERATE PAIN Vitals/I&O/Wt Last Vital Signs Temp 98.3 F 12/06/21 20:00 Pulse 72 12/07/21 06:00 Resp 15 12/07/21 02:00 BP 133/61 12/07/21 02:00 Pulse Ox 95 12/07/21 02:00 12/06/21 12/07/21 12/07/21 22:59 06:59 14:59 Intake Total 600 / 1723 Output Total 350 / 950 700 / 1650 40 / 40 Balance -350 / 173 -100 / 73 -40 / -40 Weight last 48 hrs Weight 116.483 kg Physical Exam Narrative: comfortable in bed, NC02. nard vss heent- nc/at, eomi, anicteric neck supple lungs eliza heart reg abd soft, nt, nd, + bs ext 1+ foot/ calf edema neuro- a,a, o x 3 no cabrera Urinary Catheter Management: Cabrera: Cath Placed During This Visit: yes, but has since been removed by the nurse Reason for Continuing Indwelling Catheter: Decision to DC Catheter Urinary Catheter Date of Insertion: 12/02/21 Urinary Catheter Time of Insertion: 08:00 Date Urinary Catheter Removed: 12/06/21 Time Urinary Catheter Discontinued: 08:20 Data : 12/06/21 03:15 12/07/21 03:36 A&P Assessment and plan (1) Chronic kidney disease (CKD) stage G3a/A1, moderately decreased glomerular filtration rate (GFR) between 45-59 mL/min/1.73 square meter and albuminuria creatinine ratio less than 30 mg/g: Status: Acute Plan seen via telemedicine with assistance of RN at bedside Stable s/p CABG. Good urine output. Electrolytes normal. Chronic kidney disease with normal urinalysis, possibly due to hypertension. anemia -per medicine. likely post -op renal fxn stable renal will see PRN please call if we can be of assistance Attestations Medical Necessity Statement*: post CABG per medicine and surgery Time Spent in Patient Care: 16 - 35 minutes Coding Level of Care Code Acute Applications Administrator for Jose Pandey Diagnoses Chronic kidney disease (CKD) stage G3a/A1, moderately decreased glomerular filtration rate (GFR) between 45-59 mL/min/1.73 square meter and albuminuria creatinine ratio less than 30 mg/g N18.31
[2021-12-07] MEDS: lisinopril 20 mg Tablet PO (08:24)
[2021-12-07] MEDS: metoprolol tartrate 25 mg Tablet PO ×2 (08:24→20:42)
[2021-12-07] MEDS: aspirin 81 mg EC Tablet PO (08:24)
[2021-12-07] MEDS: oxyCODONE-APAP 5-325 mg Tablet 1 TAB PO ×2 (08:24→13:51)
[2021-12-07] MEDS: pantoprazole DR 40 mg Tablet PO (11:48)
[2021-12-07] MEDS: enoxaparin 40 mg/0.4 mL Syringe SUBCUT (11:48)
--- NOTE | 2021-12-07 11:57 | PC.CHAP ---
Pastoral Care Encounter/Spiritual Assessment Type of Contact [] Declined operating room technician visit [] Patient/Family/Request visit [] Outpatient visit [] Follow-up visit [] Physician referral [] Code/Alert [x] Routine visit [] Staff referral [] Actively dying [] Patient sleeping [x] Family support [] [] Out of room [] Palliative care [] [] Receiving care in room [] Pre-surgical visit [] Trauma [] Long length of stay [x] ICU visit [] Other: Relational/Emotional Strength [] Patient feels connected with others/family/visitors/staff [] Distress [] Loneliness/isolation [] Abandonment Spirituality of Patient [] Person of Giulia [] Attends Uatsdin of their Giulia [] Believes in Prayer [] Reads Bible or Orthodoxy materials [] There are Spiritual issues to be addressed Import Dispatcher Interventions [x] Prayer [x] Active listening [x] Non-anxious presence [x] Spiritual/emotional support [] Crisis/trauma care [] Spiritual counseling [] Bereavement support [] Provided bereavement packet [] Provided Bible/devotional materials [] Provided toy/stuffed animal, coloring book to patient or family member [] Provided Communion [] Anointing/[place] [] Salvation [x] Completed spiritual assessment [] Other: Impact on Illness or Injury [] Angry [] Fearful [] Anxious [] Often cries [] Exhaustion [] Unable to work [] Unable to attend gnosticism [] Unable to walk/stand [] Unable to read [] Unable to drive [] Unable to eat/drink [] Unable to sleep [] Unable to be with family [] Patient intubated [] Other: Summary patient setting up in chair... had breakfast... possible move to med surg.. or cardiac Time spent with patient 10 min
--- NOTE | 2021-12-07 17:23 | PC.CHAP ---
Pastoral Care Encounter/Spiritual Assessment Type of Contact [] Declined punch box tender visit [] Patient/Family/Request visit [] Outpatient visit [x] Follow-up visit [] Physician referral [] Code/Alert [] Routine visit [] Staff referral [] Actively dying [] Patient sleeping [] Family support [] [] Out of room [] Palliative care [] [] Receiving care in room [] Pre-surgical visit [] Trauma [] Long length of stay [x] ICU visit [] Other: Relational/Emotional Strength [x] Patient feels connected with others/family/visitors/staff [] Distress [] Loneliness/isolation [] Abandonment Spirituality of Patient [x] Person of Giulia [x] Attends Jew of their Giulia [x] Believes in Prayer [x] Reads Bible or Mormon materials [] There are Spiritual issues to be addressed Retail Grocer Interventions [x] Prayer [x] Active listening [x] Non-anxious presence [x] Spiritual/emotional support [] Crisis/trauma care [] Spiritual counseling [] Bereavement support [] Provided bereavement packet [] Provided Bible/devotional materials [] Provided toy/stuffed animal, coloring book to patient or family member [] Provided Communion [] Anointing/[employer] [] Salvation [x] Completed spiritual assessment [] Other: Impact on Illness or Injury [] Angry [] Fearful [] Anxious [] Often cries [] Exhaustion [] Unable to work [] Unable to attend denominational [] Unable to walk/stand [] Unable to read [] Unable to drive [] Unable to eat/drink [] Unable to sleep [] Unable to be with family [] Patient intubated [] Other: Summary Patient is being moved to second floor sometime today. Patient expressed that he is feeling better now then in a long time. He expressed his praise and thankfulness to God and desires to serve Him even more in the days ahead. Patient is thankful as well for his Doctor and sang his praises along with the ICU staff. Retail Grocer and patient rejoiced together for the successful surgery. Patient and Retail Grocer joined hands and offered prayer of praise and thanks, also ask for quick healing and strength. Patient can't wait to reture to his roman catholic and share his testimony. Retail Grocer inquired of other needs, non at this time. Time spent with patient 20 mins
--- NOTE | 2021-12-07 19:02 | P.PN_ITS ---
Subjective Subjective: The patient continues to improve. Seems to be ambulating more. The sternal wound VAC was removed today. Complaining of some pain. Remains afebrile. Vital signs are stable. Medications: Medication Review Details: Current Medications Al Hydrox/Mg Hydrox/Simethicone (Kqkc-Bnb-Zhmhdmhep-Lesli 30 Ml Udc) 30 ml PO Q15M PRN PRN Reason: INDIGESTION Aspirin (Aspirin 81 Mg Ec Tablet) 81 mg PO DAILY [facility] Last Admin: 12/07/21 08:24 Dose: 81 mg Documented by: Atorvastatin Calcium (Atorvastatin 40 Mg Tablet) 40 mg PO BEDTIME [facility] Last Admin: 12/06/21 21:03 Dose: 40 mg Documented by: Atropine Sulfate (Atropine 1 Mg/Ml Sdv 1 Ml) 0.5 mg IVP PRN PRN PRN Reason: Symptomatic bradycardia Chlorhexidine Gluconate (Chlorhexidine Gluconate 0.12% Btl 473 Ml) 15 ml MUCOUS MEM BID [facility] Last Admin: 12/07/21 17:11 Dose: Not Given Documented by: Enoxaparin Sodium (Enoxaparin 40 Mg/0.4 Ml Syringe) 40 mg SUBCUT Q24H [facility] Last Admin: 12/07/21 11:48 Dose: 40 mg Documented by: Epinephrine (Racepinephrine 0.5 Ml Neb) 0.5 ml INHALATION Q6H.RESPIRATORY PRN PRN Reason: Stridor Albumin Human (Albumin) 12.5 gm in 250 mls @ 600 mls/hr IV PRN PRN PRN Reason: For CVP < 4 or SBP< 90 Lisinopril (Lisinopril 20 Mg Tablet) 20 mg PO DAILY [facility] Last Admin: 12/07/21 08:24 Dose: 20 mg Documented by: Magnesium Hydroxide (Magnesium Hydroxide 30 Ml Udc) 30 ml PO DAILY PRN PRN Reason: CONSTIPATION Metoprolol Tartrate (Metoprolol Tartrate 25 Mg Tablet) 25 mg PO BID@0900,2100 [facility] Last Admin: 12/07/21 08:24 Dose: 25 mg Documented by: Morphine Sulfate (Morphine 4 Mg/Ml Sdv 1 Ml) 2 mg IVP Q1H PRN PRN Reason: SEVERE PAIN Mupirocin (Mupirocin Oint 22 Gm) 1 applic NASAL BID [facility] Last Admin: 12/07/21 17:11 Dose: Not Given Documented by: Naloxone HCl (Naloxone 0.4 Mg/Ml Sdv) 0.1 mg IVP Q2M PRN PRN Reason: RESPIRATORY RATE < 8/MIN Naloxone HCl (Naloxone 0.4 Mg/Ml Sdv) 0.1 mg IVP Q2M PRN PRN Reason: OPIATERV Nitroglycerin (Nitroglycerin 0.4 Mg Sublingual Tablet) 0.4 mg SUBLINGUAL Q5M PRN PRN Reason: CHEST PAIN Ondansetron HCl (Ondansetron 2 Mg/Ml Sdv 2 Ml) 4 mg IVP Q6H PRN PRN Reason: NAUSEA AND VOMITING Ondansetron HCl (Ondansetron 2 Mg/Ml Sdv 2 Ml) 4 mg IVP Q6H PRN PRN Reason: NAUSEA Oxycodone/Acetaminophen (Oxycodone-Apap 5-325 Mg Tablet) 1 tab PO Q4H PRN PRN Reason: MODERATE PAIN Last Admin: 12/07/21 13:51 Dose: 1 tab Documented by: Pantoprazole Sodium (Pantoprazole Dr 40 Mg Tablet) 40 mg PO DAILY [facility] Last Admin: 12/07/21 11:48 Dose: 40 mg Documented by: Temazepam (Temazepam 15 Mg Capsule) 15 mg PO BEDTIME PRN PRN Reason: INSOMNIA Last Admin: 12/06/21 21:03 Dose: 15 mg Documented by: Tramadol HCl (Tramadol 50 Mg Tablet) 50 mg PO Q6H PRN PRN Reason: MODERATE PAIN Vitals/I&O/Wt Last Vital Signs Temp 98.3 F 12/06/21 20:00 Pulse 65 12/07/21 14:00 Resp 18 12/07/21 13:51 BP 133/61 12/07/21 02:00 Pulse Ox 95 12/07/21 13:00 12/07/21 12/07/21 12/07/21 06:59 14:59 22:59 Intake Total 600 / 1723 Output Total 700 / 1650 80 / 80 600 / 680 Balance -100 / 73 -80 / -80 -600 / -680 Weight last 48 hrs Weight 256 lb 12.8 oz Physical Exam Narrative: GENERAL: The patient is alert and oriented times three. Not in any acute distress. HEENT: Minimal pallor. No icterus or lymphadenopathy. NECK: Trachea appears to be central. No masses noted. No JVD or thyromegaly appreciated. RESPIRATORY: Breath sounds are heard bilaterally. Diminished intensity of breath sounds in the bases. BREASTS: Deferred. HEART: The heart sounds are normal. No S3 or S4. No significant murmurs. No pericardial rub ABDOMEN: No vessel pulsations or distention. No tenderness. No organomegaly appreciated. Bowel sounds are normally heard. : Deferred. RECTAL: Deferred. LYMPHATIC: No lymphadenopathy noted in the neck. EXTREMITIES: 1+ edema both lower extremities. No cyanosis. MUSCULOSKELETAL: No acute joint deformities or swelling SKIN: There are no significant rashes or ecchymosis NEUROPSYCHIATRIC: The patient is alert and oriented x3. Appears to be in a good mood. No tremors or rigidity noted. Urinary Catheter Management: Crawley: Cath Placed During This Visit: yes, but has since been removed by the nurse Reason for Continuing Indwelling Catheter: Decision to DC Catheter Urinary Catheter Date of Insertion: 12/02/21 Urinary Catheter Time of Insertion: 08:00 Date Urinary Catheter Removed: 12/06/21 Time Urinary Catheter Discontinued: 08:20 Data : 12/06/21 03:15 12/07/21 03:36 Other Labs: Laboratory Last Values WBC 10.9 10^3/uL (4.0-10.0) H 12/06/21 03:15 RBC 3.47 10^6/uL (4.1-5.3) L 12/06/21 03:15 Hgb 8.9 g/dL (11.7-16.6) L 12/06/21 03:15 Hct 27.8 % (42.0-52.0) L 12/06/21 03:15 MCV 80.1 fl (80-94) 12/06/21 03:15 MCH 25.6 pg (28.0-34.0) L 12/06/21 03:15 MCHC 32.0 g/dL (30.0-36.0) 12/06/21 03:15 RDW 15.4 % (12.1-15.1) H 12/06/21 03:15 Plt Count 453 10^3/cmm (130-400) H 12/06/21 03:15 MPV 11.0 fL (7.4-10.4) H 12/06/21 03:15 Neut % (Auto) 76.3 % 12/06/21 03:15 Lymph % (Auto) 12.3 % 12/06/21 03:15 Bureau % (Auto) 10.0 % 12/06/21 03:15 Eos % (Auto) 0.1 % 12/06/21 03:15 Baso % (Auto) 0.8 % 12/06/21 03:15 Neut # (Auto) 8.34 10^3/uL (1.8-7.7) H 12/06/21 03:15 Lymph # (Auto) 1.3 10^3/uL (0.8-4.8) 12/06/21 03:15 Bureau # (Auto) 1.1 10^3/uL (0.2-0.9) H 12/06/21 03:15 Eos # (Auto) 0.0 10^3/uL (0.0-0.8) 12/06/21 03:15 Baso # (Auto) 0.1 10^3/uL (0.0-0.1) 12/06/21 03:15 Nucleated RBC % (auto) 0 % 12/06/21 03:15 Total Counted 100 (0-100) 12/02/21 21:24 Atypical Lymphs % 4.0 % (0-5) 12/02/21 21:24 Absolute Neutrophils 16.8 10^3/cmm (1.4-6.5) H 12/02/21 21:24 Segmented Neutrophils 64 % 12/02/21 21:24 Abs Segm Neuts (Man) 12.5 10/cmm (1.6-7.1) H 12/02/21 21:24 Band Neutrophils 22.0 % 12/02/21 21:24 Abs Band Neuts (Man) 4.3 10^3/cmm (0.0-1.2) H 12/02/21 21:24 Absolute Lymphocytes 1.4 10^3/cmm (1.2-3.4) 12/02/21 21:24 Lymphocytes (Manual) 3 % 12/02/21 21:24 Monocytes (Manual) 7.0 % 12/02/21 21:24 Absolute Monocytes 1.4 10^3/cmm (0.1-0.6) H 12/02/21 21:24 Eosinophils (Manual) 0 % 06/08/22 21:24 Absolute Eosinophils 0.0 10^3/cmm (0.0-0.7) 12/02/21 21:24 Basophils (Manual) 0.0 % 12/02/21 21: Absolute Basophils 0.0 10^3/cmm (0.0-0.2) 12/02/21 21:24 Nucleated RBCs # 0.0 /100WBC 12/06/21 03:15 Platelet Estimate Increased (Normal) 12/02/21 21:24 Polychromasia 2+ H 12/02/21 21:24 PT 17.10 SECONDS (12.1-14.9) H 12/03/21 02:30 INR 1.36 (0.8-1.2) H 12/03/21 02:30 APTT 34.4 SECONDS (23.9-36.7) 12/03/21 02:30 Specimen Type Arterial 12/03/21 17:05 Sample Site Brachial, left 12/03/21 17:05 ABG pH 7.43 (7.35-7.45) 12/03/21 17:05 ABG pCO2 33.7 mmHg (35-45) L 12/03/21 17:05 ABG pO2 55.6 mmHg (80.0-100.0) L 12/03/21 17:05 ABG HCO3 22.4 mmol/L (22-26) 12/03/21 17:05 ABG O2 Saturation 91.3 12/03/21 17:05 ABG Base Excess -1.4 mmol/L (-2.0-2.0) 12/03/21 17:05 Maksim Test Pos 12/03/21 17:05 A-a O2 Gradient 15.1 mmHg (5-10) H 12/03/21 17:05 Hematocrit 32.8 % (42-52) L 12/03/21 17:05 Hgb O2 Saturation 90.5 % (95-100) L 12/03/21 17:05 Carboxyhemoglobin 1.0 %THgb (0.4-20.1) 12/03/21 17:05 Methemoglobin < 0.0 % (0.4-1.5) L 12/03/21 17:05 Total Hemoglobin 10.7 g/dL (14-18) L 12/03/21 17:05 Sodium 146.0 mmol/L (131-143) H 12/03/21 17:05 Potassium 4.2 mmol/L (3.5-5.0) 12/03/21 17:05 Glucose 112.0 mg/dL (70-115) 12/03/21 17:05 Ionized Calcium 1.1 mmol/L (1.1-1.4) 12/03/21 17:05 O2 Delivery Device Vent 12/03/21 17:05 FiO2 30.0 % 12/03/21 17:05 Tidal Volume 0.60 12/03/21 05:12 PEEP 5.0 cmH20 12/03/21 17:05 Trenching Machine Operator ID Cak 12/03/21 17:05 Sodium 141 mmol/L (136-145) 12/07/21 03:36 Potassium 4.2 mmol/L (3.5-5.1) 12/07/21 03:36 Chloride 106 mmol/L (98-107) 12/07/21 03:36 Carbon Dioxide 27 mmol/L (22-29) 12/07/21 03:36 Anion Gap 12.2 (5-19) 12/07/21 03:36 BUN 30 mg/dL (8-23) H 12/07/21 03:36 Creatinine 1.4 mg/dL (0.7-1.2) H 12/07/21 03:36 GFR Calculation 50.1 mL/min (90-130) L 12/07/21 03:36 Glucose 92 mg/dL (65-115) 12/07/21 03:36 POC Glucose 108 mg/dL (70-110) 12/06/21 07:59 Fasting Glucose Cancelled 12/03/21 02:30 Calculated Osmolality 298 mOsm/kg (285-295) H 12/07/21 03:36 Calcium 8.3 mg/dL (8.5-10.5) L 12/07/21 03:36 Magnesium 2.4 mg/dL (1.7-2.3) H 12/03/21 02:30 Total Bilirubin 0.5 mg/dL (0.15-1.2) 12/02/21 03:10 Direct Bilirubin 0.20 mg/dL (0.00-0.30) 12/01/21 21:25 AST 14 U/L (0-40) 12/02/21 03:10 ALT 16 U/L (0-41) 12/02/21 03:10 Alkaline Phosphatase 56 IU/L (40-130) 12/02/21 03:10 Troponin T Baseline 70 ng/L (0-15) H 12/01/21 10:30 Troponin T 120 Minute 69.74 ng/L (0-15) H 12/01/21 12:30 Delta Troponin T -0.26 ABS# (0-10) L 12/01/21 12:30 Troponin T Hi Sens 6Hr 68.57 ng/L (0-15) H 12/01/21 16:34 Troponin T Hi Sens 6Hr Delta -1.43 ng/L (0-12) L 12/01/21 16:34 Total Protein 7.2 g/dL (6.6-8.7) 12/02/21 03:10 Albumin 4.1 g/dL (3.5-5.2) 12/02/21 03:10 Globulin 3.1 g/dL (1.3-4.6) 12/02/21 03:10 Triglycerides 178 mg/dL (0-150) H 12/06/21 03:15 Cholesterol 169 mg/dL (0-200) 12/06/21 03:15 LDL Cholesterol, Calc 113 mg/dL (50-129) 12/06/21 03:15 HDL Cholesterol 20 mg/dL (60-100) L 12/06/21 03:15 LDL/HDL Ratio 5.65 RATIO (0.00-3.22) H 12/06/21 03:15 Cholesterol/HDL Ratio 8.45 mg/dL (1.0-5.00) H 12/06/21 03:15 TSH 2.15 uIU/mL (0.27-4.20) 12/01/21 21:25 Free T4 1.14 ng/dL (0.82-1.77) 12/01/21 21:25 Urine Color Yellow (Yellow) 12/01/21 22:40 Urine Appearance Clear (CLEAR) 12/01/21 22:40 Urine pH 5 (5-7) 12/01/21 22:40 Ur Specific Grady 1.010 (1.005-1.030) 12/01/21 22:40 Urine Protein Neg (Negative) 12/01/21 22:40 Urine Glucose (UA) Norm (Normal) 12/01/21 22:40 Urine Ketones Negative (Negative) 12/01/21 22:40 Urine Blood Neg (Negative) 12/01/21 22:40 Urine Nitrate Negative (Negative) 12/01/21 22:40 Urine Bilirubin Neg (Negative) 12/01/21 22:40 Urine Urobilinogen Norm mg/dL (Negative) 12/01/21 22:40 Ur Leukocyte Esterase Negative (Negative) 12/01/21 22:40 Blood Type O Positive 12/02/21 07:00 Rho(D) Type Positive 12/02/21 07:00 Antibody Screen Negative 12/01/21 21:25 Crossmatch See Detail 12/01/21 21:25 A&P Assessment and plan (1) 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 Remains afebrile. Vitals are stable. No new arrhythmias. We will continue on the current management. Status: Acute (2) Dyslipidemia: We will continue on the current medications. Status: Acute (3) Chronic kidney disease: Stable kidney function. Appreciate nephrology input Status: Acute (4) Postoperative anemia: Hemoglobin seems to be fairly stable. Status: Acute (5) Essential (primary) hypertension: The blood pressure seems to be fairly in the normal range. Status: Acute Plan Other problems are S/p permanent pacer implantation, 100% V paced rhythm the elevated white cell count -is coming down. Carotid artery stenosis, stable, continue on the current medications. 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
[2021-12-07] MEDS: atorvastatin 40 mg Tablet PO (20:42)
[2021-12-07] MEDS: temazepam 15 mg Capsule PO (20:42)
[2021-12-08] VITALS (18 sets, daily range): BP systolic 110–146; BP diastolic 52–67; PULSE 62–76; RESP 14–20; TEMP 36.7–36.9; O2SAT 87–97
[2021-12-08 04:19] LABS: Basophils # 0.2 10^3/uL (0.0-0.1); Basophils % 1.9 %; Eosinophils # 0.4 10^3/uL (0.0-0.8); Eosinophils % 4.5 %; Hematocrit 26.3 % (42.0-52.0); Hemoglobin 8.9 g/dL (11.7-16.6); Lymphocytes # 1.1 10^3/uL (0.8-4.8); Lymphocytes % 13.2 %; Mean Corpuscular HGB Conc 33.8 g/dL (30.0-36.0); Mean Corpuscular Hemoglobin 25.8 pg (28.0-34.0); Mean Corpuscular Volume 76.2 fl (80-94); Mean Platelet Volume 11.1 fL (7.4-10.4); Monocytes # 1.1 10^3/uL (0.2-0.9); Monocytes % 12.8 %; Neutrophils # 5.55 10^3/uL (1.8-7.7); Neutrophils % 65.8 %; Nucleated Red Blood Cells % 0 %; Platelet Count 454 10^3/cmm (130-400); Red Blood Count 3.45 10^6/uL (4.1-5.3); White Blood Count 8.4 10^3/uL (4.0-10.0)
[2021-12-08 04:36] LABS: Alanine Aminotransferase 18 U/L (0-41); Albumin Level 2.8 g/dL (3.5-5.2); Alkaline Phosphatase 52 IU/L (40-130); Anion Gap 12.1 (5-19); Aspartate Amino Transferase 21 U/L (0-40); Blood Urea Nitrogen 28 mg/dL (8-23); Calcium 8.1 mg/dL (8.5-10.5); Carbon Dioxide 26 mmol/L (22-29); Chloride 107 mmol/L (98-107); Glomerular Filtration Rate 50.1 mL/min (90-130); Glucose 95 mg/dL (65-115); Magnesium 2.1 mg/dL (1.7-2.3); Osmolality Calculated 297 mOsm/kg (285-295); Phosphorus 2.7 mg/dL (2.5-4.5); Potassium 4.1 mmol/L (3.5-5.1); Sodium 141 mmol/L (136-145); Total Bilirubin 0.4 mg/dL (0.15-1.2); Total Protein 5.8 g/dL (6.6-8.7)
--- NOTE | 2021-12-08 05:34 | P.PN_ITS ---
Subjective Subjective: Mr. Nogueira was sleeping in the recliner on rounds this morning. Nurses report no concerns overnight. No arrhythmias reported. He is still awaiting bed availability on medical surgical car[facility]. Tolerating diet well. No bowel or bladder complaints. Heart rate this morning is 67 and paced. CBC rev eals white count is now returned to normal at 8.4. Hemoglobin stable at 8.9 with hematocrit of 26.3. Creatinine is returned to near baseline, now at 1.4. Vitals/I&O/Wt Last Vital Signs Temp 98.4 F 12/07/21 20:00 Pulse 66 12/08/21 04:00 Resp 16 12/08/21 04:00 BP 146/65 12/08/21 04:00 Pulse Ox 96 12/08/21 04:00 12/07/21 12/07/21 12/08/21 14:59 22:59 06:59 Intake Total 118 / 118 Output Total 80 / 80 600 / 680 850 / 1530 Balance -80 / -80 -482 / -562 -850 / -1412 Weight last 48 hrs Weight 256 lb 12.8 oz Physical Exam Chest: COMMONS NORMALS: normal inspection of the chest and normal palpation of entire chest wall Resp: COMMON NORMALS: normal respiratory effort and clear to auscultation bilaterally AUSCULTATION: clear to auscultation bilaterally OTHER: Some fine crackles remaining in the bases no nurses report that he did Tory effort is improving. Cardio: COMMON NORMALS: regular rate, No gallops present (Cardio) and No rub (Cardio) RATE: regular rate Extremity: OTHER: Peripheral edema continues to improve with complete resolution of arms and hands and improvement in legs and feet Neuro: OTHER: No neurologic symptoms. Nurses report he was appropriate overnight Urinary Catheter Management: Crawley: Cath Placed During This Visit: yes, but has since been removed by the nurse Reason for Continuing Indwelling Catheter: Decision to DC Catheter Urinary Catheter Date of Insertion: 12/02/21 Urinary Catheter Time of Insertion: 08:00 Date Urinary Catheter Removed: 12/06/21 Time Urinary Catheter Discontinued: 08:20 Data : 12/08/21 03:25 12/08/21 03:25 A&P Assessment and plan (1) Status post aorto-coronary artery bypass graft: Awaiting transfer to medical surgical caro Betasept shower today and local wound care Further medication adjustments and recommendations per our cardiology colleagues. Confirmed home health arrangements have been completed. Status: Acute Attestations Medical Necessity Statement*: Postop day #6 status post CABG x3 Coding Level of Care Code Acute Income Tax Adjuster for Chg Fwd Diagnoses Status post aorto-coronary artery bypass graft Z95.1
--- NOTE | 2021-12-08 08:32 | PM.PN ---
Subjective Subjective: The patient is feeling okay with no chest pain or shortness of breath. Remains afebrile. Vital signs remained stable. Telemetry shows paced ventricular rhythm. No new symptoms. Medications: Medication Review Details: Current Medications Al Hydrox/Mg Hydrox/Simethicone (Jcgc-Son-Wzbxqmrvn-Lesli 30 Ml Udc) 30 ml PO Q15M PRN PRN Reason: INDIGESTION Aspirin (Aspirin 81 Mg Ec Tablet) 81 mg PO DAILY [facility] Last Admin: 12/07/21 08:24 Dose: 81 mg Documented by: Atorvastatin Calcium (Atorvastatin 40 Mg Tablet) 40 mg PO BEDTIME [facility] Last Admin: 12/07/21 20:42 Dose: 40 mg Documented by: Atropine Sulfate (Atropine 1 Mg/Ml Sdv 1 Ml) 0.5 mg IVP PRN PRN PRN Reason: Symptomatic bradycardia Chlorhexidine Gluconate (Chlorhexidine Gluconate 0.12% Btl 473 Ml) 15 ml MUCOUS MEM BID [facility] Last Admin: 12/07/21 17:11 Dose: Not Given Documented by: Enoxaparin Sodium (Enoxaparin 40 Mg/0.4 Ml Syringe) 40 mg SUBCUT Q24H [facility] Last Admin: 12/07/21 11:48 Dose: 40 mg Documented by: Epinephrine (Racepinephrine 0.5 Ml Neb) 0.5 ml INHALATION Q6H.RESPIRATORY PRN PRN Reason: Stridor Albumin Human (Albumin) 12.5 gm in 250 mls @ 600 mls/hr IV PRN PRN PRN Reason: For CVP < 4 or SBP< 90 Lisinopril (Lisinopril 20 Mg Tablet) 20 mg PO DAILY [facility] Last Admin: 12/07/21 08:24 Dose: 20 mg Documented by: Magnesium Hydroxide (Magnesium Hydroxide 30 Ml Udc) 30 ml PO DAILY PRN PRN Reason: CONSTIPATION Metoprolol Tartrate (Metoprolol Tartrate 25 Mg Tablet) 25 mg PO BID@0900,2100 [facility] Last Admin: 12/07/21 20:42 Dose: 25 mg Documented by: Morphine Sulfate (Morphine 4 Mg/Ml Sdv 1 Ml) 2 mg IVP Q1H PRN PRN Reason: SEVERE PAIN Mupirocin (Mupirocin Oint 22 Gm) 1 applic NASAL BID [facility] Last Admin: 12/07/21 17:11 Dose: Not Given Documented by: Naloxone HCl (Naloxone 0.4 Mg/Ml Sdv) 0.1 mg IVP Q2M PRN PRN Reason: RESPIRATORY RATE < 8/MIN Naloxone HCl (Naloxone 0.4 Mg/Ml Sdv) 0.1 mg IVP Q2M PRN PRN Reason: OPIATERV Nitroglycerin (Nitroglycerin 0.4 Mg Sublingual Tablet) 0.4 mg SUBLINGUAL Q5M PRN PRN Reason: CHEST PAIN Ondansetron HCl (Ondansetron 2 Mg/Ml Sdv 2 Ml) 4 mg IVP Q6H PRN PRN Reason: NAUSEA AND VOMITING Ondansetron HCl (Ondansetron 2 Mg/Ml Sdv 2 Ml) 4 mg IVP Q6H PRN PRN Reason: NAUSEA Oxycodone/Acetaminophen (Oxycodone-Apap 5-325 Mg Tablet) 1 tab PO Q4H PRN PRN Reason: MODERATE PAIN Last Admin: 12/07/21 13:51 Dose: 1 tab Documented by: Pantoprazole Sodium (Pantoprazole Dr 40 Mg Tablet) 40 mg PO DAILY [facility] Last Admin: 12/07/21 11:48 Dose: 40 mg Documented by: Temazepam (Temazepam 15 Mg Capsule) 15 mg PO BEDTIME PRN PRN Reason: INSOMNIA Last Admin: 12/07/21 20:42 Dose: 15 mg Documented by: Tramadol HCl (Tramadol 50 Mg Tablet) 50 mg PO Q6H PRN PRN Reason: MODERATE PAIN Vitals/I&O/Wt Last Vital Signs Temp 98.5 F 12/08/21 06:00 Pulse 75 12/08/21 06:00 Resp 17 12/08/21 06:00 BP 110/64 12/08/21 06:00 Pulse Ox 94 12/08/21 06:00 12/07/21 12/08/21 12/08/21 22:59 06:59 14:59 Intake Total 118 / 118 Output Total 600 / 680 850 / 1530 Balance -482 / -562 -850 / -1412 Physical Exam Narrative: GENERAL: The patient is alert and oriented times three. Not in any acute distress. HEENT: No significant pallor, icterus or lymphadenopathy.Oral cavity: There are no mucous membrane lesions. NECK: Trachea appears to be central. No masses noted. No JVD or thyromegaly appreciated. RESPIRATORY: Chest is symmetrical. No intercostals muscle retraction or any accessory muscle activation. There is no chest wall tenderness. Breath sounds are heard bilaterally. No rales or rhonchi heard. No evidence of any consolidation. BREASTS: Deferred. HEART: The heart sounds are normal. No S3 or S4. Systolic murmur grade 3/6 in the aortic area. No pericardial rub ABDOMEN: No vessel pulsations or distention. No tenderness. No organomegaly appreciated. Bowel sounds are normally heard. : Deferred. RECTAL: Deferred. LYMPHATIC: No lymphadenopathy noted in the neck. EXTREMITIES: No edema or cyanosis. No clubbing. MUSCULOSKELETAL: No acute joint deformities or swelling SKIN: There are no significant rashes or ecchymosis NEUROPSYCHIATRIC: The patient is alert and oriented x3. Appears to be in a good mood. No tremors or rigidity noted. Urinary Catheter Management: Crawley: Cath Placed During This Visit: yes, but has since been removed by the nurse Reason for Continuing Indwelling Catheter: Decision to DC Catheter Urinary Catheter Date of Insertion: 12/02/21 Urinary Catheter Time of Insertion: 08:00 Date Urinary Catheter Removed: 12/06/21 Time Urinary Catheter Discontinued: 08:20 Data : 12/08/21 03:25 12/08/21 03:25 Other Labs: Laboratory Last Values WBC 8.4 10^3/uL (4.0-10.0) 12/08/21 03:25 RBC 3.45 10^6/uL (4.1-5.3) L 12/08/21 03:25 Hgb 8.9 g/dL (11.7-16.6) L 12/08/21 03:25 Hct 26.3 % (42.0-52.0) L 12/08/21 03:25 MCV 76.2 fl (80-94) L 12/08/21 03:25 MCH 25.8 pg (28.0-34.0) L 12/08/21 03:25 MCHC 33.8 g/dL (30.0-36.0) 12/08/21 03:25 RDW 15.0 % (12.1-15.1) 12/08/21 03:25 Plt Count 454 10^3/cmm (130-400) H 12/08/21 03:25 MPV 11.1 fL (7.4-10.4) H 12/08/21 03:25 Neut % (Auto) 65.8 % 12/08/21 03:25 Lymph % (Auto) 13.2 % 12/08/21 03:25 Casey % (Auto) 12.8 % 12/08/21 03:25 Eos % (Auto) 4.5 % 12/08/21 03:25 Baso % (Auto) 1.9 % 12/08/21 03:25 Neut # (Auto) 5.55 10^3/uL (1.8-7.7) 12/08/21 03:25 Lymph # (Auto) 1.1 10^3/uL (0.8-4.8) 12/08/21 03:25 Casey # (Auto) 1.1 10^3/uL (0.2-0.9) H 12/08/21 03:25 Eos # (Auto) 0.4 10^3/uL (0.0-0.8) 12/08/21 03:25 Baso # (Auto) 0.2 10^3/uL (0.0-0.1) H 12/08/21 03:25 Nucleated RBC % (auto) 0 % 12/08/21 03:25 Total Counted 100 (0-100) 12/02/21 21:24 Atypical Lymphs % 4.0 % (0-5) 12/02/21 21:24 Absolute Neutrophils 16.8 10^3/cmm (1.4-6.5) H 12/02/21 21:24 Segmented Neutrophils 64 % 12/02/21 21:24 Abs Segm Neuts (Man) 12.5 10/cmm (1.6-7.1) H 12/02/21 21:24 Band Neutrophils 22.0 % 12/02/21 21:24 Abs Band Neuts (Man) 4.3 10^3/cmm (0.0-1.2) H 12/02/21 21:24 Absolute Lymphocytes 1.4 10^3/cmm (1.2-3.4) 12/02/21 21:24 Lymphocytes (Manual) 3 % 12/02/21 21:24 Monocytes (Manual) 7.0 % 12/02/21 21:24 Absolute Monocytes 1.4 10^3/cmm (0.1-0.6) H 12/02/21 21:24 Eosinophils (Manual) 0 % 12/02/21 21:24 Absolute Eosinophils 0.0 10^3/cmm (0.0-0.7) 12/02/21 21:24 Basophils (Manual) 0.0 % 12/02/21 21:24 Absolute Basophils 0.0 10^3/cmm (0.0-0.2) 12/02/21 21:24 Nucleated RBCs # 0.0 /100WBC 12/08/21 03:25 Platelet Estimate Increased (Normal) 12/02/21 21:24 Polychromasia 2+ H 12/02/21 21:24 PT 17.10 SECONDS (12.1-14.9) H 12/03/21 02:30 INR 1.36 (0.8-1.2) H 12/03/21 02:30 APTT 34.4 SECONDS (23.9-36.7) 12/03/21 02:30 Specimen Type Arterial 12/03/21 17:05 Sample Site Brachial, left 12/03/21 17:05 ABG pH 7.43 (7.35-7.45) 12/03/21 17:05 ABG pCO2 33.7 mmHg (35-45) L 12/03/21 17:05 ABG pO2 55.6 mmHg (80.0-100.0) L 12/03/21 17:05 ABG HCO3 22.4 mmol/L (22-26) 12/03/21 17:05 ABG O2 Saturation 91.3 12/03/21 17:05 ABG Base Excess -1.4 mmol/L (-2.0-2.0) 12/03/21 17:05 Maksim Test Pos 12/03/21 17:05 A-a O2 Gradient 15.1 mmHg (5-10) H 12/03/21 17:05 Hematocrit 32.8 % (42-52) L 12/03/21 17:05 Hgb O2 Saturation 90.5 % (95-100) L 12/03/21 17:05 Carboxyhemoglobin 1.0 %THgb (0.4-20.1) 12/03/21 17:05 Methemoglobin < 0.0 % (0.4-1.5) L 12/03/21 17:05 Total Hemoglobin 10.7 g/dL (14-18) L 12/03/21 17:05 Sodium 146.0 mmol/L (131-143) H 12/03/21 17:05 Potassium 4.2 mmol/L (3.5-5.0) 12/03/21 17:05 Glucose 112.0 mg/dL (70-115) 12/03/21 17:05 Ionized Calcium 1.1 mmol/L (1.1-1.4) 12/03/21 17:05 O2 Delivery Device Vent 12/03/21 17:05 FiO2 30.0 % 12/03/21 17:05 Tidal Volume 0.60 12/03/21 05:12 PEEP 5.0 cmH20 12/03/21 17:05 Claims Customer Service Representative ID Cak 12/03/21 17:05 Sodium 141 mmol/L (136-145) 12/08/21 03:25 Potassium 4.1 mmol/L (3.5-5.1) 12/08/21 03:25 Chloride 107 mmol/L (98-107) 12/08/21 03:25 Carbon Dioxide 26 mmol/L (22-29) 12/08/21 03:25 Anion Gap 12.1 (5-19) 12/08/21 03:25 BUN 28 mg/dL (8-23) H 12/08/21 03:25 Creatinine 1.4 mg/dL (0.7-1.2) H 12/08/21 03:25 GFR Calculation 50.1 mL/min (90-130) L 12/08/21 03:25 Glucose 95 mg/dL (65-115) 12/08/21 03:25 POC Glucose 108 mg/dL (70-110) 12/06/21 07:59 Fasting Glucose Cancelled 12/03/21 02:30 Calculated Osmolality 297 mOsm/kg (285-295) H 12/08/21 03:25 Calcium 8.1 mg/dL (8.5-10.5) L 12/08/21 03:25 Phosphorus 2.7 mg/dL (2.5-4.5) 12/08/21 03:25 Magnesium 2.1 mg/dL (1.7-2.3) 12/08/21 03:25 Total Bilirubin 0.4 mg/dL (0.15-1.2) 12/08/21 03:25 Direct Bilirubin 0.20 mg/dL (0.00-0.30) 12/01/21 21:25 AST 21 U/L (0-40) 12/08/21 03:25 ALT 18 U/L (0-41) 12/08/21 03:25 Alkaline Phosphatase 52 IU/L (40-130) 12/08/21 03:25 Troponin T Baseline 70 ng/L (0-15) H 12/01/21 10:30 Troponin T 120 Minute 69.74 ng/L (0-15) H 12/01/21 12:30 Delta Troponin T -0.26 ABS# (0-10) L 12/01/21 12:30 Troponin T Hi Sens 6Hr 68.57 ng/L (0-15) H 12/01/21 16:34 Troponin T Hi Sens 6Hr Delta -1.43 ng/L (0-12) L 12/01/21 16:34 Total Protein 5.8 g/dL (6.6-8.7) L 12/08/21 03:25 Albumin 2.8 g/dL (3.5-5.2) L 12/08/21 03:25 Globulin 3.0 g/dL (1.3-4.6) 12/08/21 03:25 Triglycerides 178 mg/dL (0-150) H 12/06/21 03:15 Cholesterol 169 mg/dL (0-200) 12/06/21 03:15 LDL Cholesterol, Calc 113 mg/dL (50-129) 12/06/21 03:15 HDL Cholesterol 20 mg/dL (60-100) L 12/06/21 03:15 LDL/HDL Ratio 5.65 RATIO (0.00-3.22) H 12/06/21 03:15 Cholesterol/HDL Ratio 8.45 mg/dL (1.0-5.00) H 12/06/21 03:15 TSH 2.15 uIU/mL (0.27-4.20) 12/01/21 21:25 Free T4 1.14 ng/dL (0.82-1.77) 12/01/21 21:25 Urine Color Yellow (Yellow) 12/01/21 22:40 Urine Appearance Clear (CLEAR) 12/01/21 22:40 Urine pH 5 (5-7) 12/01/21 22:40 Ur Specific Mck[place]on 1.010 (1.005-1.030) 12/01/21 22:40 Urine Protein Neg (Negative) 12/01/21 22:40 Urine Glucose (UA) Norm (Normal) 12/01/21 22:40 Urine Ketones Negative (Negative) 12/01/21 22:40 Urine Blood Neg (Negative) 12/01/21 22:40 Urine Nitrate Negative (Negative) 12/01/21 22:40 Urine Bilirubin Neg (Negative) 12/01/21 22:40 Urine Urobilinogen Norm mg/dL (Negative) 12/01/21 22:40 Ur Leukocyte Esterase Negative (Negative) 12/01/21 22:40 Blood Type O Positive 12/02/21 07:00 Rho(D) Type Positive 12/02/21 07:00 Antibody Screen Negative 12/01/21 21:25 Crossmatch See Detail 12/01/21 21:25 A&P Assessment and plan (1) Atherosclerotic heart disease of [place] coronary artery with unstable angina pectoris: Patient is status post three-vessel coronary artery bypass surgery ,patient continues to improve. Uneventful postoperative status. We will continue on the current treatment measures Status: Acute (2) Dyslipidemia: We will continue on the current medications. Status: Acute (3) Chronic kidney disease: Stable kidney function. We will continue on the current medications Status: Acute (4) Postoperative anemia: Hemoglobin seems to be fairly stable. Status: Acute (5) Essential (primary) hypertension: The blood pressure seems to be fairly in the normal range. Status: Acute Plan Other problems are S/p permanent pacer implantation, 100% V paced rhythm the elevated white cell count -back to normal Carotid artery stenosis, stable, continue on the current medications. Aortic valve sclerosis Continue phase 1 cardiac rehab Attestations Medical Necessity Statement*: Possible discharge home tomorrow. Defer to Dr. Jimenez Coding Level of Care Code Acute Door Repairer Bus for Jose Fwcinthia History Expanded Problem Focused Exam Detailed Medical Decision Making Moderate Complexity Diagnoses Atherosclerotic heart disease of [place] coronary artery with unstable angina pectoris I25.110 Dyslipidemia E78.5 Chronic kidney disease N18.9 Postoperative anemia D64.9 Essential (primary) hypertension I10
[2021-12-08] MEDS: chlorhexidine gluconate 0.12% Btl 473 mL 15 ML MUCOUS MEM ×2 (09:28→18:10)
[2021-12-08] MEDS: enoxaparin 40 mg/0.4 mL Syringe SUBCUT (09:28)
[2021-12-08] MEDS: metoprolol tartrate 25 mg Tablet PO ×2 (09:28→20:13)
[2021-12-08] MEDS: lisinopril 20 mg Tablet PO (09:28)
[2021-12-08] MEDS: aspirin 81 mg EC Tablet PO (09:28)
[2021-12-08] MEDS: mupirocin oint 22 gm 1 APPLIC NASAL ×2 (09:28→18:11)
[2021-12-08] MEDS: pantoprazole DR 40 mg Tablet PO (09:28)
--- NOTE | 2021-12-08 09:49 | PC.CHAP ---
Pastoral Care Encounter/Spiritual Assessment Type of Contact [] Declined community development coordinator visit [] Patient/Family/Request visit [] Outpatient visit [] Follow-up visit [] Physician referral [] Code/Alert [x] Routine visit [] Staff referral [] Actively dying [] Patient sleeping [] Family support [] [] Out of room [] Palliative care [] [x] Receiving care in room [] Pre-surgical visit [] Trauma [] Long length of stay [x] ICU visit [x] Other: patient receiving meds... family hasnt arrived as of yet.. again there is possibility of moving to med surg.. staff is amazed as the progress patient has shown.. Relational/Emotional Strength [] Patient feels connected with others/family/visitors/staff [] Distress [] Loneliness/isolation [] Abandonment Spirituality of Patient [] Person of Giulia [] Attends Confucianism of their Giulia [] Believes in Prayer [] Reads Bible or Church materials [] There are Spiritual issues to be addressed Cashier Host/Hostess Interventions [x Prayer [] Active listening [] Non-anxious presence [] Spiritual/emotional support [] Crisis/trauma care [] Spiritual counseling [] Bereavement support [] Provided bereavement packet [] Provided Bible/devotional materials [] Provided toy/stuffed animal, coloring book to patient or family member [] Provided Communion [] Anointing/[place] [] Salvation [x] Completed spiritual assessment [] Other: Impact on Illness or Injury [] Angry [] Fearful [] Anxious [] Often cries [] Exhaustion [] Unable to work [] Unable to attend voodoo [] Unable to walk/stand [] Unable to read [] Unable to drive [] Unable to eat/drink [] Unable to sleep [] Unable to be with family [] Patient intubated [] Other: Summary Time spent with patient
--- NOTE | 2021-12-08 11:17 | PC.SOCIAL ---
IMM Updated Updated pt on IMM. No questions voiced. Provided pt a copy. Initialed, dated & timed copy in chart.
[2021-12-08] MEDS: chlorhexidine gluconate 4% Btl 118 mL 1 APPLIC TOPICAL (18:07)
[2021-12-08] MEDS: FUROsemide 20 mg Tablet PO (18:08)
[2021-12-08] MEDS: temazepam 15 mg Capsule PO (20:13)
[2021-12-08] MEDS: atorvastatin 40 mg Tablet PO (20:13)
[2021-12-08] MEDS: cephALEXin 500 mg Capsule PO (20:14)
[2021-12-09] VITALS (10 sets, daily range): BP systolic 105–143; BP diastolic 56–74; PULSE 60–68; RESP 16–18; TEMP 36.7; O2SAT 94–98
[2021-12-09 03:36] LABS: Basophils # 0.2 10^3/uL (0.0-0.1); Basophils % 1.4 %; Eosinophils # 0.5 10^3/uL (0.0-0.8); Eosinophils % 4.1 %; Hematocrit 29.1 % (42.0-52.0); Hemoglobin 9.7 g/dL (11.7-16.6); Lymphocytes # 1.3 10^3/uL (0.8-4.8); Lymphocytes % 11.7 %; Mean Corpuscular HGB Conc 33.3 g/dL (30.0-36.0); Mean Corpuscular Hemoglobin 26.1 pg (28.0-34.0); Mean Corpuscular Volume 78.2 fl (80-94); Mean Platelet Volume 10.6 fL (7.4-10.4); Monocytes # 1.2 10^3/uL (0.2-0.9); Monocytes % 11.1 %; Neutrophils # 7.71 10^3/uL (1.8-7.7); Neutrophils % 69.5 %; Nucleated Red Blood Cells % 0 %; Platelet Count 599 10^3/cmm (130-400); Red Blood Count 3.72 10^6/uL (4.1-5.3); Red Cell Distribution Width 14.9 % (12.1-15.1); White Blood Count 11.1 10^3/uL (4.0-10.0)
[2021-12-09 03:54] LABS: Alanine Aminotransferase 20 U/L (0-41); Albumin Level 3.1 g/dL (3.5-5.2); Alkaline Phosphatase 62 IU/L (40-130); Anion Gap 14.1 (5-19); Aspartate Amino Transferase 19 U/L (0-40); Blood Urea Nitrogen 27 mg/dL (8-23); Calcium 8.7 mg/dL (8.5-10.5); Carbon Dioxide 25 mmol/L (22-29); Chloride 106 mmol/L (98-107); Globulin 3.1 g/dL (1.3-4.6); Glomerular Filtration Rate 54.6 mL/min (90-130); Glucose 99 mg/dL (65-115); Magnesium 2.1 mg/dL (1.7-2.3); Osmolality Calculated 297 mOsm/kg (285-295); Phosphorus 3.3 mg/dL (2.5-4.5); Potassium 4.1 mmol/L (3.5-5.1); Sodium 141 mmol/L (136-145); Total Bilirubin 0.4 mg/dL (0.15-1.2); Total Protein 6.2 g/dL (6.6-8.7)
--- NOTE | 2021-12-09 06:00 | XRR_ITS ---
PROCEDURE INFORMATION: Exam: XR Chest Exam date and time: 12/09/2021 4:18 AM Age: 71 years old Clinical indication: Device placement; Other: S/P cabg; Prior surgery; Surgery date: Post-operative (0-2 days); Additional info: S/P cabg: Continuing diuresis TECHNIQUE: Imaging protocol: Radiologic exam of the chest. Views: 1 view. Total images: 1 COMPARISON: CR XR chest 1V portable [id number] 12/07/2021 6:11 AM FINDINGS: Tubes, catheters and devices: A pacemaker device is present, its leads in appropriate position. Lungs: Pulmonary vascular congestion improved. Bilateral pulmonary opacities have improved from the prior exam. Pleural spaces: Unremarkable. No pleural effusion. No pneumothorax. Heart/Mediastinum: Prior coronary artery bypass grafting. Cardiomegaly. Bones/joints: Osseous structures are unchanged from the prior exam. XR/XR chest 1V portable [id number] IMPRESSION: 1. Cardiomegaly with improved pulmonary vascular congestion. 2. Bilateral pulmonary opacities have improved from the prior exam.
--- NOTE | 2021-12-09 06:15 | PM.PN ---
Subjective Subjective: Mr. Nogueira chair this morning on rounds. He states he feels quite good and is here for discharge home. Nurses report no concerns. He has a paced rhythm at 67 bpm. WBC count returned to normal yesterday. He underwent a Betasept shower yesterday which he tolerated very well and enjoyed. Ambulating in the ICU without difficulties. Still on approximately 2 L nasal cannula and does desaturate to about 88% without oxygen while ambulating. Vitals/I&O/Wt Last Vital Signs Temp 98.1 F 12/09/21 04:00 Pulse 68 12/09/21 06:00 Resp 18 12/09/21 05:00 BP 140/66 12/09/21 05:00 Pulse Ox 95 12/09/21 05:00 12/08/21 12/08/21 12/09/21 14:59 22:59 06:59 Intake Total 240 / 240 120 / 360 120 / 480 Output Total 200 / 200 200 / 400 500 / 900 Balance 40 / 40 -80 / -40 -380 / -420 Physical Exam Chest: OTHER: Feels well and stable. Sternotomy dressing is clean and dry. Resp: COMMON NORMALS: normal respiratory effort, No use of accessory muscles and clear to auscultation bilaterally AUSCULTATION: clear to auscultation bilaterally Cardio: COMMON NORMALS: regular rate, regular rhythm, S1 normal heart sound present and No murmurs present (Cardio) RATE: regular rate RHYTHM: regular rhythm HEART SOUNDS: S1 normal heart sound present GI: COMMON NORMALS: Normal to inspection, nondistended, normoactive bowel sounds present Extremity: NARRATIVE EXTREMITY EXAM: Minimal residual peripheral edema, except for the left lower extremity where there is some drainage on the left thigh incision where the vein was harvested by open technique. Urinary Catheter Management: Crawley: Cath Placed During This Visit: yes, but has since been removed by the nurse Reason for Continuing Indwelling Catheter: Decision to DC Catheter Urinary Catheter Date of Insertion: 12/02/21 Urinary Catheter Time of Insertion: 08:00 Date Urinary Catheter Removed: 12/06/21 Time Urinary Catheter Discontinued: 08:20 Data : 12/09/21 03:04 12/09/21 03:04 A&P Assessment and plan (1) Status post aorto-coronary artery bypass graft: 1 week status post CABG. May discharge at discretion of cardiology service and schedule follow-up Service in 1 week. We will confirm home health arrangements have been arranged. I will continue prophylactic oral antibiotics for 3 days after discharge due to some drainage from the left thigh incision. Activity limitations and follow-up appointments have been placed in the discharge documentation. I will be off service remainder of today as I will be out of the area staffing another [facility] clinic. Status: Acute Attestations Medical Necessity Statement*: Status post CABG 1 week Coding Level of Care Code Acute Hand Plate Stacker for [facility] Katherin Diagnoses Status post aorto-coronary artery bypass graft Z95.1
[2021-12-09] MEDS: pantoprazole DR 40 mg Tablet PO (08:14)
[2021-12-09] MEDS: aspirin 81 mg EC Tablet PO (08:14)
[2021-12-09] MEDS: lisinopril 20 mg Tablet PO (08:14)
[2021-12-09] MEDS: metoprolol tartrate 25 mg Tablet PO (08:14)
[2021-12-09] MEDS: chlorhexidine gluconate 0.12% Btl 473 mL 15 ML MUCOUS MEM (08:15)
[2021-12-09] MEDS: cephALEXin 500 mg Capsule PO ×2 (08:15→15:21)
[2021-12-09] MEDS: mupirocin oint 22 gm 1 APPLIC NASAL (08:16)
--- NOTE | 2021-12-09 10:48 | PC.CHAP ---
Pastoral Care Encounter/Spiritual Assessment Type of Contact [] Declined high pressure firer visit [] Patient/Family/Request visit [] Outpatient visit [] Follow-up visit [] Physician referral [] Code/Alert [x] Routine visit [] Staff referral [] Actively dying [] Patient sleeping [x] Family support [] [] Out of room [] Palliative care [] [] Receiving care in room [] Pre-surgical visit [] Trauma [] Long length of stay [x] ICU visit [x] Other: preparing to be discharged for home...... Relational/Emotional Strength [] Patient feels connected with others/family/visitors/staff [] Distress [] Loneliness/isolation [] Abandonment Spirituality of Patient [] Person of Giulia [] Attends Orthodoxy of their Giulia [] Believes in Prayer [] Reads Bible or Jainism materials [] There are Spiritual issues to be addressed Pipeline Systems Operator Interventions [x] Prayer [] Active listening [] Non-anxious presence [] Spiritual/emotional support [] Crisis/trauma care [] Spiritual counseling [] Bereavement support [] Provided bereavement packet [] Provided Bible/devotional materials [] Provided toy/stuffed animal, coloring book to patient or family member [] Provided Communion [] Anointing/[place] [] Salvation [x] Completed spiritual assessment [] Other: Impact on Illness or Injury [] Angry [] Fearful [] Anxious [] Often cries [] Exhaustion [] Unable to work [] Unable to attend amish [] Unable to walk/stand [] Unable to read [] Unable to drive [] Unable to eat/drink [] Unable to sleep [] Unable to be with family [] Patient intubated [] Other: Summary Time spent with patient
[2021-12-09] MEDS: enoxaparin 40 mg/0.4 mL Syringe SUBCUT (11:12)
[2021-12-09] MEDS: oxyCODONE-APAP 5-325 mg Tablet 1 TAB PO (15:21)
--- NOTE | 2021-12-09 17:58 | PM.DCS ---
Discharge Providers Date of Admission: 12/01/21 20:01 Date of Discharge: December 09, 2021 Attending Provider at Admission: Maribel Almeida MD Attending Provider at Discharge: Maribel Almeida MD Consults: Dr. Jimenez, Dr. Bennett and Dr. Brittanie Coombs Primary Care Provider: Lucy Puente MD Diagnoses at Discharge Discharge Diagnosis (1) Status post aorto-coronary artery bypass graft: Details from hospital stay: Patient had a three-vessel coronary bypass surgery by Dr. Jimenez on 12/02/2021. He had a HORVATH to the LAD, venous graft to the obtuse marginal artery and another venous graft to the PDA. Status: Acute Other Information Additional DC diagnoses/information: Essential benign hypertension Dyslipidemia Dual-chamber permanent pacer implantation for symptomatic bradycardia Reason for Visit Reason for Visit: chest pain Brief History: This 71-year-old white male, was seen in the emergency room with complaints of increasing episodes of chest pains. He had a Myocardial perfusion imaging prior to the ER visit which was found to be abnormal. Please see the Myocardial perfusion imaging further details. His symptoms are suggestive of unstable angina. He underwent left heart catheterization which revealed critical distal left main disease, high-grade lesion in the first diagonal branch, total occlusion of the left circumflex artery and a high-grade lesion in the right coronary artery. Based on the angiogram findings, it was thought to be appropriate to consider surgical revascularization. I consulted Dr. Jimenez who agreed to perform this procedure. The patient is admitted to the hospital for further management. Hospital Course Hospital Course In preparation for the bypass surgery, Dr. Bennett was asked to insert an intra-aortic balloon pump on this patient. The balloon pump was inserted on 12/02/2021. Subsequently the patient was taken to the operating room. He underwent three-vessel coronary artery bypass surgery by Dr. Jimenez. He had a HORVATH to the LAD, venous graft to the obtuse marginal artery and another venous graft to the PDA. On the following day of the surgery, the balloon pump was taken out. Patient was extubated. He remained fairly stable throughout the hospital course. Has not had any significant arrhythmias on the monitor. He was gradually placed back on all his preadmission medications. Patient was ambulating on telemetry without any difficulty. Since he remained stable with no new symptoms, he is being discharged home. Physical Exam Narrative: GENERAL: The patient is alert and oriented times three. Not in any acute distress. HEENT: Patient has minimal pallor. No icterus or lymphadenopathy.Oral cavity: There are no mucous membrane lesions. NECK: Trachea appears to be central. No masses noted. No JVD or thyromegaly appreciated. RESPIRATORY: Breath sounds are heard bilaterally. Sternotomy site has no hematoma bleeding. BREASTS: Deferred. HEART: The heart sounds are normal. No S3 or S4. No significant murmurs. No pericardial rub ABDOMEN: No vessel pulsations or distention. No tenderness. No organomegaly appreciated. Bowel sounds are normally heard. : Deferred. RECTAL: Deferred. LYMPHATIC: No lymphadenopathy noted in the neck. EXTREMITIES: Trace edema with no cyanosis MUSCULOSKELETAL: No acute joint deformities or swelling SKIN: There are no significant rashes or ecchymosis NEUROPSYCHIATRIC: The patient is alert and oriented x3. Appears to be in a good mood. No tremors or rigidity noted. 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 Routine Exams 12/01/21 17:29 Completed GUN PERFORATOR LOADER request for service Routine Exams 12/02/21 05:31 Completed XR chest 1V portable [id number] Routine Exams 12/02/21 16:09 Completed XR chest 1V portable [id number] Routine Exams 12/03/21 06:00 Completed XR chest 1V portable [id number] Routine Exams 12/04/21 06:00 Completed XR chest 1V portable [id number] Routine Exams 12/05/21 06:00 Completed XR chest 1V portable [id number] Routine Exams 12/06/21 06:00 Completed XR chest 1V portable [id number] Routine Exams 12/07/21 06:00 Completed XR chest 1V portable [id number] Routine Exams 12/09/21 06:00 Completed XR chest 1V portable [id number] Stat Exams 12/01/21 10:14 [place] [id number] Routine Ultrasound 12/01/21 20:18 Completed Pending at discharge Category Date Time Status Complete Blood Count w/Auto AM LABS Lab 12/10/21 04:00 Ordered Complete Crossmatch Routine Lab 12/01/21 21:25 Results Comprehensive Metabolic Panel AM LABS Lab 12/10/21 04:00 Ordered Magnesium AM LABS Lab 12/10/21 04:00 Ordered Phosphorus AM LABS Lab 12/10/21 04:00 Ordered Type and Screen - Cardiac Routine Lab 12/01/21 21:25 Results Type and Screen Routine Lab 12/01/21 21:25 Results Radiology Impressions Chest X-Ray 12/09/21 06:00 IMPRESSION: 1. Cardiomegaly with improved pulmonary vascular congestion. 2. Bilateral pulmonary opacities have improved from the prior exam. Laboratory Results WBC 11.1 10^3/uL (4.0-10.0) H 12/09/21 03:04 RBC 3.72 10^6/uL (4.1-5.3) L 12/09/21 03:04 Hgb 9.7 g/dL (11.7-16.6) L 12/09/21 03:04 Hct 29.1 % (42.0-52.0) L 12/09/21 03:04 MCV 78.2 fl (80-94) L 12/09/21 03:04 MCH 26.1 pg (28.0-34.0) L 12/09/21 03:04 MCHC 33.3 g/dL (30.0-36.0) 12/09/21 03:04 RDW 14.9 % (12.1-15.1) 12/09/21 03:04 Plt Count 599 10^3/cmm (130-400) H D 12/09/21 03:04 MPV 10.6 fL (7.4-10.4) H 12/09/21 03:04 Neut % (Auto) 69.5 % 12/09/21 03:04 Lymph % (Auto) 11.7 % 12/09/21 03:04 Nicollet % (Auto) 11.1 % 12/09/21 03:04 Eos % (Auto) 4.1 % 12/09/21 03:04 Baso % (Auto) 1.4 % 12/09/21 03:04 Neut # (Auto) 7.71 10^3/uL (1.8-7.7) H 12/09/21 03:04 Lymph # (Auto) 1.3 10^3/uL (0.8-4.8) 12/09/21 03:04 Nicollet # (Auto) 1.2 10^3/uL (0.2-0.9) H 12/09/21 03:04 Eos # (Auto) 0.5 10^3/uL (0.0-0.8) 12/09/21 03:04 Baso # (Auto) 0.2 10^3/uL (0.0-0.1) H 12/09/21 03:04 Nucleated RBC % (auto) 0 % 12/09/21 03:04 Total Counted 100 (0-100) 12/02/21 21:24 Atypical Lymphs % 4.0 % (0-5) 12/02/21 21:24 Absolute Neutrophils 16.8 10^3/cmm (1.4-6.5) H 12/02/21 21:24 Segmented Neutrophils 64 % 12/02/21 21:24 Abs Segm Neuts (Man) 12.5 10/cmm (1.6-7.1) H 12/02/21 21:24 Band Neutrophils 22.0 % 12/02/21 21:24 Abs Band Neuts (Man) 4.3 10^3/cmm (0.0-1.2) H 12/02/21 21:24 Absolute Lymphocytes 1.4 10^3/cmm (1.2-3.4) 12/02/21 21:24 Lymphocytes (Manual) 3 % 12/02/21 21:24 Monocytes (Manual) 7.0 % 12/02/21 21:24 Absolute Monocytes 1.4 10^3/cmm (0.1-0.6) H 12/02/21 21:24 Eosinophils (Manual) 0 % 12/02/21 21:24 Absolute Eosinophils 0.0 10^3/cmm (0.0-0.7) 12/02/21 21:24 Basophils (Manual) 0.0 % 12/02/21 21:24 Absolute Basophils 0.0 10^3/cmm (0.0-0.2) 12/02/21 21:24 Nucleated RBCs # 0.0 /100WBC 12/09/21 03:04 Platelet Estimate Increased (Normal) 12/02/21 21:24 Polychromasia 2+ H 12/02/21 21:24 PT 17.10 SECONDS (12.1-14.9) H 12/03/21 02:30 INR 1.36 (0.8-1.2) H 12/03/21 02:30 APTT 34.4 SECONDS (23.9-36.7) 12/03/21 02:30 Specimen Type Arterial 12/03/21 17:05 Sample Site Brachial, left 12/03/21 17:05 ABG pH 7.43 (7.35-7.45) 12/03/21 17:05 ABG pCO2 33.7 mmHg (35-45) L 12/03/21 17:05 ABG pO2 55.6 mmHg (80.0-100.0) L 12/03/21 17:05 ABG HCO3 22.4 mmol/L (22-26) 12/03/21 17:05 ABG O2 Saturation 91.3 12/03/21 17:05 ABG Base Excess -1.4 mmol/L (-2.0-2.0) 12/03/21 17:05 Maksim Test Pos 12/03/21 17:05 A-a O2 Gradient 15.1 mmHg (5-10) H 12/03/21 17:05 Hematocrit 32.8 % (42-52) L 12/03/21 17:05 Hgb O2 Saturation 90.5 % (95-100) L 12/03/21 17:05 Carboxyhemoglobin 1.0 %THgb (0.4-20.1) 12/03/21 17:05 Methemoglobin < 0.0 % (0.4-1.5) L 12/03/21 17:05 Total Hemoglobin 10.7 g/dL (14-18) L 12/03/21 17:05 Sodium 146.0 mmol/L (131-143) H 12/03/21 17:05 Potassium 4.2 mmol/L (3.5-5.0) 12/03/21 17:05 Glucose 112.0 mg/dL (70-115) 12/03/21 17:05 Ionized Calcium 1.1 mmol/L (1.1-1.4) 12/03/21 17:05 O2 Delivery Device Vent 12/03/21 17:05 FiO2 30.0 % 12/03/21 17:05 Tidal Volume 0.60 12/03/21 05:12 PEEP 5.0 cmH20 12/03/21 17:05 Siene Maker ID Cak 12/03/21 17:05 Sodium 141 mmol/L (136-145) 12/09/21 03:04 Potassium 4.1 mmol/L (3.5-5.1) 12/09/21 03:04 Chloride 106 mmol/L (98-107) 12/09/21 03:04 Carbon Dioxide 25 mmol/L (22-29) 12/09/21 03:04 Anion Gap 14.1 (5-19) 12/09/21 03:04 BUN 27 mg/dL (8-23) H 12/09/21 03:04 Creatinine 1.3 mg/dL (0.7-1.2) H 12/09/21 03:04 GFR Calculation 54.6 mL/min (90-130) L 12/09/21 03:04 Glucose 99 mg/dL (65-115) 12/09/21 03:04 POC Glucose 108 mg/dL (70-110) 12/06/21 07:59 Fasting Glucose Cancelled 12/03/21 02:30 Calculated Osmolality 297 mOsm/kg (285-295) H 12/09/21 03:04 Calcium 8.7 mg/dL (8.5-10.5) 12/09/21 03:04 Phosphorus 3.3 mg/dL (2.5-4.5) 12/09/21 03:04 Magnesium 2.1 mg/dL (1.7-2.3) 12/09/21 03:04 Total Bilirubin 0.4 mg/dL (0.15-1.2) 12/09/21 03:04 Direct Bilirubin 0.20 mg/dL (0.00-0.30) 12/01/21 21:25 AST 19 U/L (0-40) 12/09/21 03:04 ALT 20 U/L (0-41) 12/09/21 03:04 Alkaline Phosphatase 62 IU/L (40-130) 12/09/21 03:04 Troponin T Baseline 70 ng/L (0-15) H 12/01/21 10:30 Troponin T 120 Minute 69.74 ng/L (0-15) H 12/01/21 12:30 Delta Troponin T -0.26 ABS# (0-10) L 12/01/21 12:30 Troponin T Hi Sens 6Hr 68.57 ng/L (0-15) H 12/01/21 16:34 Troponin T Hi Sens 6Hr Delta -1.43 ng/L (0-12) L 12/01/21 16:34 Total Protein 6.2 g/dL (6.6-8.7) L 12/09/21 03:04 Albumin 3.1 g/dL (3.5-5.2) L 12/09/21 03:04 Globulin 3.1 g/dL (1.3-4.6) 12/09/21 03:04 Triglycerides 178 mg/dL (0-150) H 12/06/21 03:15 Cholesterol 169 mg/dL (0-200) 12/06/21 03:15 LDL Cholesterol, Calc 113 mg/dL (50-129) 12/06/21 03:15 HDL Cholesterol 20 mg/dL (60-100) L 12/06/21 03:15 LDL/HDL Ratio 5.65 RATIO (0.00-3.22) H 12/06/21 03:15 Cholesterol/HDL Ratio 8.45 mg/dL (1.0-5.00) H 12/06/21 03:15 TSH 2.15 uIU/mL (0.27-4.20) 12/01/21 21:25 Free T4 1.14 ng/dL (0.82-1.77) 12/01/21 21:25 Urine Color Yellow (Yellow) 12/01/21 22:40 Urine Appearance Clear (CLEAR) 12/01/21 22:40 Urine pH 5 (5-7) 12/01/21 22:40 Ur Specific Vowinckel 1.010 (1.005-1.030) 12/01/21 22:40 Urine Protein Neg (Negative) 12/01/21 22:40 Urine Glucose (UA) Norm (Normal) 12/01/21 22:40 Urine Ketones Negative (Negative) 12/01/21 22:40 Urine Blood Neg (Negative) 12/01/21 22:40 Urine Nitrate Negative (Negative) 12/01/21 22:40 Urine Bilirubin Neg (Negative) 12/01/21 22:40 Urine Urobilinogen Norm mg/dL (Negative) 12/01/21 22:40 Ur Leukocyte Esterase Negative (Negative) 12/01/21 22:40 Blood Type O Positive 12/02/21 07:00 Rho(D) Type Positive 12/02/21 07:00 Antibody Screen Negative 12/01/21 21:25 Crossmatch See Detail 12/01/21 21:25 Vitals Last Vital Signs Temp 98.1 F 12/09/21 16:00 Pulse 68 12/09/21 16:00 Resp 18 12/09/21 16:00 BP 140/66 12/09/21 12:00 Pulse Ox 95 12/09/21 16:00 Discharge Plan Discharge Patient Disposition: Home Health Service Condition: Stable Prescriptions: Continued nitroglycerin 0.4 mg tablet, sublingual 0.4 mg sublingual Q5M PRN (Reason: chest pain) 30 Days Qty: 30 3RF Rx Instructions: until response; do not exceed 3 doses per episode rosuvastatin 20 mg tablet 30 mg PO BEDTIME 0RF aspirin [Adult Low Dose Aspirin] 81 mg tablet,delayed release (DR/EC) 81 mg PO DAILY@12 0RF amlodipine 10 mg tablet 10 mg PO DAILY@12 0RF multivitamin Tablet 1 tab PO DAILY PRN (Reason: unknown) 0RF omega-3 fatty acids 1,000 mg Capsule 2,000 mg PO DAILY 0RF lisinopril-hydrochlorothiazide 20-25 mg Tablet 1 tab PO QAM 0RF Discharge Orders: Discharge Order (Routine); Ordered 12/09/21 Ordered By: Maribel Almeida Other Ambulatory Orders: DME: Oxygen (Order) Location: None Selected Ordered By: Bharathi Jimenez Referrals: Lucy Puente MD [Primary Care Provider] - (please call for follow up [place] 10-14 days) Bharathi Jimenez MD [Physician] - 1 week (will need to call for follow up at office , [place], for this follow up with ) Discharge Diet: Advance as tolerated and Cardiac Discharge Activity: Limit activity as instructed Patient Instructions: Heart Healthy Diet (DC), Fall Prevention for Older Adults (DC), Fall Prevention (DC), Sternal Precautions (GEN), CABG (Coronary Artery Bypass Graft) (DC), Opioid Safety Activity Restrictions/Additional Instructions: May shower with dressings off Dry incisions completely after showering. May recover if desired to prevent irritation from clothing. No swimming or tub baths x2 weeks No lifting, pulling, or pushing with upper extremities more than 5 pounds for the next 6 weeks Report any fever, incisional redness, swelling, drainage, or increasing pain. Report any increasing shortness of breath or weight gain over 10 pounds Use incentive spirometer frequently Keep heart pillow readily available to assist with coughing, deep breathing, or sneezing Appointment with me in the office in 3 weeks Discharge Attestations Time Spent in Discharge Care*: greater than 30 min Quality Metrics Clinical Quality Measures [ No reported AMI, CVA or VTE this stay] Coding Level of Care Code Acute Chg FW DC note Diagnoses Status post aorto-coronary artery bypass graft Z95.1
== END 2021-12-09 18:27 | disposition home health service (06) | DRG 234 ==
LOC: ER 14:35 → ICU 19:32
PROVIDERS: Internal Medicine Cardiovascular Disease; Internal Medicine Nephrology; Thoracic Surgery (Cardiothoracic Vascular Surgery); Admitting Provider Internal Medicine Cardiovascular Disease; Emergency Provider Family Medicine; PCP Family Medicine; Visit Provider Internal Medicine Cardiovascular Disease
PROC: 4A023N7 Measurement of Cardiac Sampling and Pressure, Left Heart, Percutaneous Approach (ICD-10-PCS; principal; 2021-12-01 17:00)
PROC: 5A02210 Assistance with Cardiac Output using Balloon Pump, Continuous (ICD-10-PCS; principal; 2021-12-02 06:00)
PROC: 02100Z9 Bypass Coronary Artery, One Artery from Left Internal Mammary, Open Approach (ICD-10-PCS; principal; 2021-12-02 07:00)
DX: I25.110 Atherosclerotic heart disease of native coronary artery with unstable angina pectoris (principal); D62 Acute posthemorrhagic anemia; E78.5 Hyperlipidemia, unspecified; I35.8 Other nonrheumatic aortic valve disorders; Z95.0 Presence of cardiac pacemaker; Z86.16 Personal history of COVID-19; I12.9 Hypertensive chronic kidney disease with stage 1 through stage 4 chronic kidney disease, or unspecified chronic kidney disease; N18.31 Chronic kidney disease, stage 3a; Z87.891 Personal history of nicotine dependence; I65.23 Occlusion and stenosis of bilateral carotid arteries; D63.1 Anemia in chronic kidney disease; Z79.82 Long term (current) use of aspirin
CPT/HCPCS: 33967; 36415; 36416; 36591; 36592; 36600; 51702; 71045; 80048; 80051; 80053; 80061; 80076; 81003; 82330; 82803; 82805; 82962; 83735; 84100; 84439; 84443; 84484; 85007; 85025; 85347; 85610; 85730; 86850; 86900; 86920; 93005; 93452; 93458; 93970; 94002; 94003; 94640; 94799; 96360; 96372; 97110; 97116; 97161; 97165; 97530; 97535; 99152; 99153; 99285; C1751; C1769; C1887; C1894; C9113; J0171; J0697; J1250; J1644; J1650; J1815; J1940; J2150; J2250; J2270; J2370; J2704; J2720; J3010; J3475; J3480; J3490; J7030; J7040; J7050; P9035; P9047; Q0163; Q3014; Q9967

== ENCOUNTER → 2021-12-14 13:53 | Outpatient (BNVA) | payer OTHER, SELFPAY | PROVIDERS: PCP Family Medicine; Visit Provider Internal Medicine Cardiovascular Disease | DX: I25.110 Atherosclerotic heart disease of native coronary artery with unstable angina pectoris (principal); Z95.1 Presence of aortocoronary bypass graft; M79.89 Other specified soft tissue disorders; I12.9 Hypertensive chronic kidney disease with stage 1 through stage 4 chronic kidney disease, or unspecified chronic kidney disease; N18.9 Chronic kidney disease, unspecified; Z87.891 Personal history of nicotine dependence | CPT/HCPCS: 99214 ==

== ENCOUNTER → 2021-12-22 10:40 | Outpatient (BNVA) | payer OTHER, SELFPAY | PROVIDERS: PCP Family Medicine; Visit Provider Thoracic Surgery (Cardiothoracic Vascular Surgery) | DX: Z98.890 Other specified postprocedural states (principal) | CPT/HCPCS: 99024 ==

== ENCOUNTER → 2022-01-04 15:00 | Outpatient (BNVA) | payer OTHER, SELFPAY | PROVIDERS: PCP Family Medicine; Visit Provider Thoracic Surgery (Cardiothoracic Vascular Surgery) | DX: Z98.890 Other specified postprocedural states (principal) | CPT/HCPCS: 99024 ==

== ENCOUNTER → 2022-01-08 11:01 | Outpatient (BNVA) | payer OTHER, SELFPAY | PROVIDERS: PCP Family Medicine; Visit Provider Internal Medicine Cardiovascular Disease | DX: Z45.010 Encounter for checking and testing of cardiac pacemaker pulse generator [battery] (principal) | CPT/HCPCS: 93280 ==

== ENCOUNTER → 2022-02-04 13:23 | Outpatient (BNVA) | payer OTHER, SELFPAY | PROVIDERS: PCP Family Medicine; Visit Provider Thoracic Surgery (Cardiothoracic Vascular Surgery) | DX: Z98.890 Other specified postprocedural states (principal); Z95.1 Presence of aortocoronary bypass graft | CPT/HCPCS: 99024 ==

== ENCOUNTER → 2022-04-27 13:31 | Outpatient (BNVA) | payer OTHER, SELFPAY | PROVIDERS: PCP Family Medicine; Visit Provider Internal Medicine Cardiovascular Disease | DX: I12.9 Hypertensive chronic kidney disease with stage 1 through stage 4 chronic kidney disease, or unspecified chronic kidney disease (principal); N18.9 Chronic kidney disease, unspecified; Z87.891 Personal history of nicotine dependence; Z95.0 Presence of cardiac pacemaker; Z95.1 Presence of aortocoronary bypass graft; I65.23 Occlusion and stenosis of bilateral carotid arteries; I35.8 Other nonrheumatic aortic valve disorders | CPT/HCPCS: 99214 ==

== ENCOUNTER 2022-10-19 07:54 | Outpatient (CLI) | payer OTHER, SELFPAY ==
--- NOTE | 2022-10-19 08:00 | USCV_ITS ---
Martín Nogueira Age: 72 Gender: M : 1950 Exam Date: 10/19/2022 08:05 Ordering Phys: Mamta Gallo Technologist: Sky Loo [place]am Location[place] [facility] [place] Indication: CABG, new onset SOB and CP BP: 160 / 80 HR: Rhythm: Other Technical Quality: Adequate MEASUREMENTS (Male / Female) Normal Values 2D ECHO LV Diastolic Diameter PLAX 4.5 cm 4.2 - 5.9 / 3.9 - 5.3 cm LV Systolic Diameter PLAX 3.4 cm IVS Diastolic Thickness 2.0 cm 0.6 - 1.0 / 0.6 - 0.9 cm IVS Systolic Thickness 2.6 cm LVPW Diastolic Thickness 1.7 cm 0.6 - 1.0 / 0.6 - 0.9 cm LVPW Systolic Thickness 2.1 cm LVOT Diameter 2.0 cm LV Ejection Fraction 2D Teich 50.8 % LV Ejection Fraction MOD 2C 63.8 % LV Ejection Fraction 2C AL 65.4 % LA Width 4.3 cm LA Height 6.3 cm RA Width 5.5 cm RA Height 5.9 cm Aorta at Sinotubular Diameter 3.1 cm M-MODE MV E Point Septal Separation 0.9 cm DOPPLER AV Peak Velocity 183.0 cm/s LVOT Peak Velocity 94.3 cm/s AV Area Cont Eq vti 2.2 cm squared AV Area Cont Eq pk 1.6 cm squared MV Peak Velocity 132.0 cm/s MV Area PHT 4.0 cm squared Mitral E to A Ratio 0.6 MV E' Velocity 43.0 cm/s Mitral E to MV E' Ratio 13.1 Mitral E to LV E' Lateral Ratio 13.4 Mitral E to LV E' Septal Ratio 13.1 TR Peak Velocity 284.0 cm/s TR Peak Gradient 32.3 mmHg PV Peak Velocity 90.0 cm/s RV Acceleration Time 0.1 s RV Ejection Time 0.3 s RV AcT/ET 0.4 FINDINGS Left Ventricle Normal LV size with a slightly diminished ejection fraction of 48%. Mild diffuse hypokinesia of the septum. Moderate hypokinesia of the basal inferolateral wall segment.Grade I/IV diastolic dysfunction (abnormal relaxation filling pattern), normal to mildly elevated filling pressures. Right Ventricle Catheter/pacemaker wire in the right ventricular cavity. Right Atrium Mildly increased right atrial size. Catheter/pacemaker wire in the right atrial appendage. Left Atrium Mildly increased left atrial size. Mitral Valve No gross abnormalities noted Aortic Valve Thickened aortic valve. Moderate aortic valve calcification. Tricuspid Valve Mild tricuspid valve regurgitation. Pulmonic Valve Pulmonic valve not well visualized. Pericardium Normal pericardium without effusion. Aorta Normal aortic annulus size. IVC Normal inferior vena cava. CONCLUSIONS Normal LV size with a slightly diminished ejection fraction of 48%. Mild diffuse hypokinesia of the septum. Moderate hypokinesia of the basal inferolateral wall segment.Grade I/IV diastolic dysfunction (abnormal relaxation filling pattern), normal to mildly elevated filling pressures. Mild biatrial enlargement. Features of aortic valve sclerosis Moderate aortic valve calcification. Mild tricuspid valve regurgitation. Estimated pulmonary artery peak systolic pressure 32 mmHg Pacemaker wire in the right atrium and right ventricle Compared to the study from 11/24/2021, the biatrial enlargement appears to be new Dr Maribel Almeida MD [facility] (Electronically Signed) Final Date: 20 October 2022 20:50 S
== END 2022-10-19 07:55 | disposition home or self-care (01) ==
LOC: RAD 07:56
PROVIDERS: PCP Family Medicine; Visit Provider Nurse Practitioner Family
DX: I10 Essential (primary) hypertension (principal); N18.31 Chronic kidney disease, stage 3a; Z95.0 Presence of cardiac pacemaker; Z95.1 Presence of aortocoronary bypass graft; I35.8 Other nonrheumatic aortic valve disorders; I70.0 Atherosclerosis of aorta; I07.1 Rheumatic tricuspid insufficiency
CPT/HCPCS: 36415; 80048; 80503; 82728; 83540; 83550; 83880; 85025; 93306; 99214

== ENCOUNTER 2022-10-27 09:32 | Outpatient (CLI) | payer OTHER, SELFPAY ==
[2022-10-27 10:30] LABS: Blood Urea Nitrogen 27 mg/dL (8-23); Calcium 9.4 mg/dL (8.5-10.5); Carbon Dioxide 24 mmol/L (22-29); Chloride 101 mmol/L (98-107); Glucose 135 mg/dL (65-115); Osmolality Calculated 293 mOsm/kg (285-295); Sodium 138 mmol/L (136-145)
[2022-10-27 10:36] LABS: Anion Gap 17.1 (5-19); Potassium 4.1 mmol/L (3.5-5.1)
== END 2022-10-27 09:33 | disposition home or self-care (01) ==
PROVIDERS: Nurse Practitioner Family; PCP Family Medicine; Visit Provider Internal Medicine Cardiovascular Disease
DX: I25.110 Atherosclerotic heart disease of native coronary artery with unstable angina pectoris (principal); I65.23 Occlusion and stenosis of bilateral carotid arteries
CPT/HCPCS: 36415; 80048

== ENCOUNTER 2022-11-01 09:27 | Outpatient (CLI) | payer OTHER, SELFPAY ==
[2022-11-01 09:40] VITALS: BMI 32.8
--- NOTE | 2022-11-01 09:42 | ECG_ITS ---
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 Interpretive Statements NAME OF STUDY: LEXISCAN SESTAMIBI STRESS TEST INDICATION: Stable angina, PROCEDURE: At the baseline, the EKG revealed 100% A-V paced rhythm. The baseline heart was 76 bpm with a blood pressue of 171/87 mm of Hg Lexiscan was infused over a period of 20 seconds. A total of 0.4 milligrams of Lexiscan was infused. The stress phase was continued for a total of 5 minutes. Heart rate at the end of the stress phase was 63 bpm with a blood pressure 189/119 mm of Hg. The EKG at the peak infusion revealed no significant changes. Sestamibi was injected 20 seconds after the Lexiscan infusion. Heart rate at the end of the recovery phase was 70 bpm with a blood pressure of 120/83 mm of Hg. CONCLUSION: 1. No significant EKG changes with the LexiScan infusion 2. No LexiScan induced chest pain or cardiac arrhythmia 3. Normal blood pressure and heart rate response 4. Sestamibi/sestamibi perfusion scan pending; see separate report. Electronically Signed On 11-02-2022 20:34:05 CDT by Maribel Almeida M.D. [email or web address]
--- NOTE | 2022-11-01 09:43 | NMCV_ITS ---
NM nona perf SPECT r/s* [id number] Martín Nogueira Age: 72 Gender: M : 1950 Exam Date: 11/01/2022 10:36 Ordering Phys: Mamta Gallo Technologist: LORETTA Espinal Exam Location: [facility] Indications: CORONARY ANGIOPLASTY STATUS, ANGINA PECTORIS STRESS TEST [facility] IMAGE PROTOCOL Rest/Stress 1 Lexiscan Day Radiopharmaceutical Dose (mCi) Administration Site Administered by Rest: Tc-99m 10.7 IV LORETTA Gomes Sestamibi Stress:Tc-99m 32.9 IV LORETTA Gomes Sestamibi Rest: 01-Nov-2022 60 Discovery 630 Stress: 01-Nov-2022 30 Discovery 630 0.4mg Lexiscan. Images obtained in supine and prone position. SPECT RESULTS Technical Quality: Excellent Raw Data Analysis: Normal Image Corrections: No attenuation or motion correction applied Summed Stress Score: 8 Summed Rest Score: 6 Summed Difference Score: 4 PERFUSION FINDINGS Moderate area of moderately decreased tracer uptake in the basal, mid and apical inferior; basal and mid inferolateral segments. Some reversibility was noted in the inferolateral and inferior regions. FUNCTIONAL RESULTS (calculated via Gated SPECT) Stress Image LV EF (%): 35 Stress EDV (mL):169 TID: 1.26 Stress ESV (mL):110 FUNCTIONAL FINDINGS: Segmental wall motion analysis revealing diffuse hypokinesia of the septum and LV apex IMPRESSIONS 1. Myocardial perfusion imaging revealing moderate area of moderately decreased tracer uptake in the inferior and inferolateral region with some reversibility suggesting myocardial scarring with ischemia in the distribution of both the right coronary and left circumflex arteries. 2. LV wall motion analysis revealing diffuse hypokinesia of the septum and the LV apex. 3. LV ejection fraction estimated to be 35%. 4. Moderately dilated LV cavity with end-systolic volume of 110 normal. The elevated transient ischemic dilatation ratio also may suggest endocardial ischemia. Compared to the study from 11/27/2021,, the extent of ischemia is more and the area of ischemia is different Dr Maribel Almeida MD [facility] (Electronically Signed) Final Date: 01 Nov 2022 23:55 S
[2022-11-01] MEDS: regadenoson 0.4 Mg/5 ml Syringe IVP (11:21)
[2022-11-01 11:22] VITALS: BP 120/93; PULSE 71
== END 2022-11-01 09:28 | disposition home or self-care (01) ==
LOC: CDL 09:28
PROVIDERS: PCP Family Medicine; Visit Provider Nurse Practitioner Family
DX: I20.8 Other forms of angina pectoris (principal); Z95.1 Presence of aortocoronary bypass graft
CPT/HCPCS: 78452; 93017; 96374; A9500; J2785

== ENCOUNTER → 2022-11-09 13:39 | Outpatient (BNVA) | payer OTHER, SELFPAY | PROVIDERS: PCP Family Medicine; Visit Provider Internal Medicine Cardiovascular Disease | DX: I25.110 Atherosclerotic heart disease of native coronary artery with unstable angina pectoris (principal); Z95.0 Presence of cardiac pacemaker; E78.5 Hyperlipidemia, unspecified; I12.9 Hypertensive chronic kidney disease with stage 1 through stage 4 chronic kidney disease, or unspecified chronic kidney disease; N18.31 Chronic kidney disease, stage 3a; Z87.891 Personal history of nicotine dependence | CPT/HCPCS: 99214 ==

== ENCOUNTER 2022-11-10 07:23 | Outpatient (CLI) | payer OTHER, SELFPAY ==
[2022-11-09 15:21] LABS: Basophils # 0.2 10^3/uL (0.0-0.1); Basophils % 1.9 %; Eosinophils % 0.1 %; Hematocrit 52.5 % (42.0-52.0); Hemoglobin 16.4 g/dL (11.7-16.6); Lymphocytes # 1.3 10^3/uL (0.8-4.8); Lymphocytes % 14.8 %; Mean Corpuscular HGB Conc 31.2 g/dL (30.0-36.0); Mean Corpuscular Hemoglobin 23.7 pg (28.0-34.0); Mean Platelet Volume 10.4 fL (7.4-10.4); Monocytes % 11.1 %; Neutrophils # 6.39 10^3/uL (1.8-7.7); Neutrophils % 71.5 %; Nucleated Red Blood Cells % 0 %; Platelet Count 505 10^3/cmm (130-400); Red Blood Count 6.91 10^6/uL (4.1-5.3); Red Cell Distribution Width 18.7 % (12.1-15.1); White Blood Count 8.9 10^3/uL (4.0-10.0)
[2022-11-09 15:38] LABS: Chloride 101 mmol/L (98-107); Potassium 4.1 mmol/L (3.5-5.1); Sodium 139 mmol/L (136-145)
[2022-11-09 15:57] LABS: Anion Gap 16.1 (5-19); Blood Urea Nitrogen 20 mg/dL (8-23); Calcium 9.7 mg/dL (8.5-10.5); Carbon Dioxide 26 mmol/L (22-29); Glucose 78 mg/dL (65-115); Osmolality Calculated 289 mOsm/kg (285-295)
[2022-11-09 17:26] LABS: INR 1.03 (0.8-1.2)
[2022-11-10] VITALS (47 sets, daily range): BP systolic 128–182; BP diastolic 65–102; PULSE 60–76; RESP 14–28; TEMP 36.5–36.8; O2SAT 87–94; BMI 32.8
--- NOTE | 2022-11-10 07:30 | XACV_ITS ---
Exam Room: 2 Ht: 180 cm Wt: 107 kg BSA: 2.34 m2 Gender: Male : 1950 Any Known Allergies: Other Exam Priority: Routine Procedure(s): Procedure Description: Diagnostic procedure Procedure Description: PCI procedure Procedure Description: Venous Graft Catheterization Procedure Description: HORVATH Graft Catheterization Procedure Description: Coronary IVUS Procedure Description: Drug Eluting Coronary Stent Procedure Description: PTCA Procedure Description: Miscellaneous Procedure Description: ACT Procedure Description: Coronary Angiography Juan Pablo GU; Diagnostic Cath Status: Elective Diagnostic Findings * The left main is a medium caliber vessel with an ostial narrowing of around 30%. The distal artery was found to have 98% stenosis. Coronary blood flow was noted in the mid segment of the artery. Just before the takeoff of the first diagonal branch, there was a 50% narrowing. * The circumflex artery patient be totally occluded proximally. There where 2 small obtuse marginal branches found to be coming off the circumflex artery, near to the ostium. * The right coronary artery is a medium to large caliber vessel with mild ostial narrowing with some calcification. The mid segment of the artery was found to have a high-grade around 90% stenosis. There was fairly good right to left collaterals filling up the distal and mid circumflex artery also were noted. * The saphenous venous graft to the right coronary artery and to the obtuse marginal artery is totally occluded. * The HORVATH to LAD was found to be widely patent. Distal LAD was found to have minimal intimal irregularities. PCI Status: Elective Interventional Findings * Procedure detail: * We engaged * RCA with * AL 0.75 * guide catheter. IV heparin was administered to maintain anticoagulation. 0.014 run-through guidewire was advanced into distal RCA. We performed IVUS to confirm there was no severe stenosis of ostial RCA. We then predilated mid RCA stenosis with 3.0 x 15 mm NC balloon. This is followed by placement of 4.0 x 18 mm resolute [place] drug-eluting stent. We postdilated the stent with a 4.5 x 8 mm NC balloon. At this time final angiogram was performed that showed excellent stent expansion, no residual stenosis and MARLO-3 flow. Guidewire and guide catheter were removed. 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 * Mid Right Coronary Artery: 70% stenosis treated with a MDT NC EUPHORA RX [id number] BALLOON, MDT R EVANS 4.0X18 SEBASTIEN, and MDT NC EUPHORA RX [id number] BALLOON. Conclusions 1. Patient, status post three-vessel coronary bypass surgery in November 2021, now presenting with chest pain, shortness of breath and fatigue. Underwent coronary angiogram and graft angiogram today. The findings are as follows. 2. 1. Mild ostial left main disease with critical distal left main disease. #2 moderate disease in the left anterior descending artery in the midsegment. Patent HORVATH to the LAD .3. Total occlusion of the circumflex artery proximally. Venous graft to the obtuse marginal branch is totally occluded. #4 high-grade lesion in the mid the right coronary artery with mild disease at the ostium. Good right to left collaterals.. 3. Based on the above angiographic findings, it was thought to be appropriate to consider PCI of the mid RCA lesion. I reviewed and discussed the cardiac catheterization data with Dr. Flores. Dr. Flores concurred with this plan and took over further management of this patient at this point.. 4. Successful revascularization of mid RCA stenosis with SEBASTIEN x1. 5. Mid Right Coronary Artery was treated with a Balloon, Drug Eluting Stent, and Balloon. Recommendations * Dual antiplatelet therapy with aspirin and Plavix for at least 1 year. * Aggressive risk factor modification. * High intensity statin therapy. * Outpatient cardiology follow-up in 2 weeks. Interventional RX Recommendation: PCI w/o planned CABG Diagnostic RX Recommendation: PCI w/o planned CABG Anticoagulation: Heparin Pressures Phase:Rest AO : 139 / 92 ( 116 ) @ 10:13:00 AM 136 / 92 ( 113 ) @ 10:14:00 AM 127 / 83 ( 104 ) @ 10:32:00 AM 139 / 77 ( 105 ) @ 10:58:00 AM 104 / 66 ( 83 ) @ 11:12:00 AM Clinical Evaluation EBL: 5mL-10mL Procedural Details Procedure Consent Obtained. Admit Source: Out Patient. Pre-Procedure Time Out. Identified patient by full name and date of as verbalized by the patient/guarantor. Does the consent match the physician's order: Yes. Accurate & Complete Informed Consent: Yes. Inpatient/Outpatient History & Physical on Chart: Yes. If H&P is completed, is and addenduem needed: No; If yes, is the addendum complete: N/A. Visualize and Verify Site with Patient/Guarantor: N/A. Relevant Radiology Images available: N/A. Pre-op teaching completed and patient verbalized understanding. The risks, benefits, and alternatives of sedation and/or procedure were discussed by physician. The patient agrees to continue. Procedure started. [facility] Clinical Fraility Score: 3: Managing Well. Manufactured Buildings Supervisor Indications: Worsening Angina. Chest Pain Symptom Assessment: Atypical Angina. Correct patient, site and procedure confirmed by cath team. Current diagnosis: Chest Pain. PERRLA. Strong, equal hand senior associate bilaterally. Lungs clear x 5 lobes. IV Site on Arrival: 20 gauge in the right anticubital. IV Fluids: 0.9% NaCl at KVO. 300 mL infused prior to lab specialist. Pre Procedural Pulses: bilateral radial was 2+. Pre Procedural Pulses: right dorsalis pedis was 2+. Pre Procedural Pulses: left dorsalis pedis was 1+. Oxygen started at 2liters/min via nasal canula. bilateral groins was prepped with chloroprep then draped in the usual sterile fashion. Physician notified. Baseline sample Acquired. HR: 66 BPM. Physician arrived. Physician scrubbed in. Immediate Pre-Procedure Time Out. Correct Patient: Yes; Correct Procedure: Yes; Correct Site: Yes; Correct Patient Position: Yes; Correct Supplies: Yes; Dried Flammable Prep: Yes; Blood Products Available: N/A;. Lidocaine 1% infiltrated to the right groin. Arterial access obtained with micropuncture set. A 5 austrian JR4 catheter in over wire. SVG to OM occluded. Exchange wire inserted. Catheter removed over the exchange wire. Sheath upsized to a 6 Fr. 23cm 6 Fr sheath exchanged for 45 cm 6 Fr sheath. A 5 austrian JR4 catheter in over wire. Catheter removed over the standard wire. A 5 austrian AR MOD catheter in over wire. Multiple views taken of left coronary artery. Catheter removed over the standard wire. A 6 austrian JR4 catheter in over wire. Multiple views taken of right coronary artery. Catheter redirected to HORVATH over exchange wire. Dr. Flores called to lab to review cine films. Wire out. HORVATH to LAD visualized. Catheter removed over the exchange wire. Dr. Flores arrived to review cine films. Physician scrubbed out. Dr. Flores scrubbed in to perform intervention. ACT drawn. Results 194 seconds. Therapeutic limits - pre-heparin administration 90-150 seconds and monitoring heparin during a vascular procedure >250 seconds. 6 austrian AL 0.75 guide catheter was inserted over the wire. Runthrough guidewire was advanced through the guide catheter to lesion in the mid RCA. IVUS catheter inserted to Mid RCA. IVUS run performed of Mid RCA. IVUS catheter removed. Balloon inserted to lesion in the mid RCA. Inflation number : 1 A MDT NC EUPHORA RX [id number] BALLOON was prepped and advanced across the Mid RCA , then inflated to 14 SHAYNE for 0:21 seconds. Inflation number: 2 The MDT NC EUPHORA RX [id number] BALLOON was reinflated across the Mid RCA, to 14 SHAYNE for 0:16 seconds. Balloon out. Results checked. Stent inserted to lesion in the mid RCA. Inflation Number : 3 A NATASHA Mercado EVANS 4.0X18 SEBASTIEN -Lot Number# [id number] Exp 09/30/2024 was prepped and advanced across the Mid RCA. The stent was deployed at 12 SHAYNE for 0:20 seconds. Results checked. Stent balloon out over wire. Balloon inserted to lesion in the mid RCA. Inflation number : 4 A NATASHA BECERRA EUPHORA RX [id number] BALLOON was prepped and advanced across the Mid RCA , then inflated to 18 SHAYNE for 0:16 seconds. Results checked. SVG to RCA occluded. Balloon out. ACT drawn. Results 346 seconds. Therapeutic limits - pre-heparin administration 90-150 seconds and monitoring heparin during a vascular procedure >250 seconds. Wire out. Results checked. 45CM 6 Fr sheath exchanged for short 6 Fr Sheath. Guide catheter out. A Suture was successful obtaining hemostatsis at the Right Femoral artery insertion site. Sheath(s) sutured into position with 2-0 silk and sterile 4x4's and Op-site applied over the site. No oozing or signs and symptoms of hematoma noted. Post Procedure: Pulses reassessed and unchanged. PERRLA. Strong, equal hand senior associate bilaterally. No VTE prophylaxis required. Medication's Wasted: Nitro = 49.8 mg. Medication's Wasted: Heparin = 1500 u. Medication's Wasted: Other = Fentanyl 50 mcg. Medication's Wasted: Other = Versed 1 mg. Total IV fluids: 110 mL. PCI Indication: New Onset Angina. Post-op diagnosis: Severe stenosis Mid RCA with Successful PCI. Complications: none. Estimated blood loss: 5mL-10mL. Responsiveness - Normal response to verbal stimuli; alert and oriented, PERRLA. Airway - Unaffected, no intervention required; spontaneous ventilation. Circulation: W/N/L, pulses unchanged. Nausea/Vomiting: No. Procedure completed. Patient transferred by bed to CPRU. Vital chart was stopped. Access Site Site: Right Femoral artery Sheath Size: 5 Fr Hemostasis Method: Suture Hemostasis Success: Successful Procedure Medications Start: 9:04 AM Stop: 9:04 AM Medication: Versed Amount: 1 mg Route: I.V. Start: 9:04 AM Stop: 9:04 AM Medication: Fentanyl Amount: 50 mcg Route: I.V. Start: 9:17 AM Stop: 9:17 AM Medication: Heparin Amount: 1500 units Route: I.V. Start: 9:20 AM Stop: 9:20 AM Medication: Versed Amount: 1 mg Route: I.V. Start: 9:34 AM Stop: 9:34 AM Medication: Heparin Amount: 1000 units Route: I.V. Start: 9:55 AM Stop: 9:55 AM Medication: Versed Amount: 1 mg Route: I.V. Start: 10:00 AM Stop: 10:00 AM Medication: Heparin Amount: 5000 units Route: I.V. Start: 10:05 AM Stop: 10:05 AM Medication: Heparin Amount: 2000 units Route: I.V. Start: 10:11 AM Stop: 10:11 AM Medication: Nitrogylcerin Amount: 200 mcg Route: I.C. I, the attending physician, have reviewed and verified all procedure medications. Yes, all medications given per verbal order History/Risk Factors Hypertension: Yes Dyslipidemia: Yes Peripheral Arterial Disease (PAD): No Myocardial Infarction (GA): No Obesity: Yes Renal Disease: No Tobacco Use: Former Prior Interventions PCI: No CABG: Yes Valve Surgery: No Report Signatures Interventional Workflow Finalized by Festus Flores MD on 11/16/2022 11:03 AM Diagnostic Workflow Finalized by Dr Maribel Almeida MD [facility] on 11/10/2022 12:43 PM
[2022-11-10] MEDS: diphenhydrAMINE 50 mg Capsule PO (08:00)
--- NOTE | 2022-11-10 08:44 | W.PM.OPSUD ---
Surgery/Procedure H&P Update DATE OF PROCEDURE: November 10, 2022 DATE H&P PERFORMED: 11/09/22 H&P UPDATE INFORMATION: I have reviewed H&P completed within last 30 days, I have examined patient prior to procedure and No changes to prior documentation PREOP DIAGNOSIS: ASHD, S/P CABG PRIMARY INDICATION FOR PROCEDURE: Chest pain, abnormal myocardial perfusion imaging/SOB PLANNED PROCEDURE: Operation Date: 11/10/22 08:30 Proposed Procedures p [facility] W/-W/O 11802 25.10,I10, I65.23,(Left) - Maribel Almeida MD PATIENT REASSESSED PRIOR TO SEDATION, WITH NO CHANGE NOTED: Yes PHYSICAL EXAM: oriented x 3, clear to auscultation bilaterally and regular rate & rhythm AIRWAY EVAL/ANESTHESIA PLAN: normal airway, see other exam findings, ASA III, Monitored Anesthesia, Local Anesthesia, Risks, benefits & alternatives of sedation and/or procedure discussed and Patient agrees to continue as planned
--- NOTE | 2022-11-10 11:20 | PC.NURSE ---
1115: Transfer orders received. Report given to CLOVIS Lucia. Dsg over sheath to patients right groin clean, dry, et intact, no hematoma. Vital stable. Patient transferred to CSU from CPRU via stretcher. All belongings sent with patient.
[2022-11-10] MEDS: omega-3 fatty acids 1,000 mg Capsule 2000 MG PO (12:09)
[2022-11-10] MEDS: ascorbic acid 500 mg Tablet 2000 MG PO (12:09)
[2022-11-10] MEDS: cholecalciferol (vitamin D3) 5,000 unit Tablet 5000 UNIT PO (12:11)
[2022-11-10] MEDS: amlodipine 10 mg Tablet PO (12:11)
[2022-11-10] MEDS: FUROsemide 20 mg Tablet PO (12:11)
[2022-11-10] MEDS: sodium chloride 0.9% 1,000 ML 100 ML IV ×2 (12:12→15:22)
--- NOTE | 2022-11-10 13:16 | PC.NURSE ---
Patient received from labor relations manager at 11:28. Report received from selvin Murray. Patient arrived with sheath in right groin connected to pressure bag. Site is dry and intact with no bleeding or hematoma. Vitals stable. at bedside.
[2022-11-10 14:25] LABS: Partial Thromboplastin Time 33.1 SECONDS (23.9-36.7)
--- NOTE | 2022-11-10 15:19 | PC.NURSE ---
Right femoral sheath removed at 14:45. Manual pressure held for 20 minutes, hemostasis achieved immediately. bioclusive dressing applied, dry and intact. Vitals stable.
[2022-11-10 16:26] LABS: Basophils # 0.1 10^3/uL (0.0-0.1); Basophils % 1.7 %; Eosinophils # 0.1 10^3/uL (0.0-0.8); Eosinophils % 1.7 %; Hematocrit 50.7 % (42.0-52.0); Hemoglobin 15.7 g/dL (11.7-16.6); Lymphocytes # 0.9 10^3/uL (0.8-4.8); Lymphocytes % 11.6 %; Mean Corpuscular Hemoglobin 23.9 pg (28.0-34.0); Mean Corpuscular Volume 77.1 fl (80-94); Mean Platelet Volume 10.1 fL (7.4-10.4); Monocytes # 0.9 10^3/uL (0.2-0.9); Monocytes % 11.3 %; Neutrophils # 5.56 10^3/uL (1.8-7.7); Neutrophils % 73.3 %; Nucleated Red Blood Cells % 0 %; Platelet Count 435 10^3/cmm (130-400); Red Blood Count 6.58 10^6/uL (4.1-5.3); Red Cell Distribution Width 18.7 % (12.1-15.1); White Blood Count 7.6 10^3/uL (4.0-10.0)
[2022-11-10 16:51] LABS: Anion Gap 15.9 (5-19); Blood Urea Nitrogen 25 mg/dL (8-23); Carbon Dioxide 25 mmol/L (22-29); Chloride 101 mmol/L (98-107); Glucose 111 mg/dL (65-115); Osmolality Calculated 291 mOsm/kg (285-295); Potassium 3.9 mmol/L (3.5-5.1); Sodium 138 mmol/L (136-145)
--- NOTE | 2022-11-10 19:39 | PC.NURSE ---
Patient requesting something for sleep. Spoke with Dr Almeida and received onetime order for Restoril 15mg PO for sleep. RBVO
[2022-11-10] MEDS: temazepam 15 mg Capsule PO (20:58)
[2022-11-10] MEDS: atorvastatin 40 mg Tablet 80 MG PO (20:58)
[2022-11-11] VITALS (11 sets, daily range): BP systolic 121–156; BP diastolic 67–86; PULSE 61–75; RESP 14–19; TEMP 36.4–36.5; O2SAT 90–94
[2022-11-11] MEDS: lisinopril 20 mg Tablet PO (05:14)
[2022-11-11] MEDS: cholecalciferol (vitamin D3) 5,000 unit Tablet 5000 UNIT PO (08:24)
[2022-11-11] MEDS: ascorbic acid 500 mg Tablet 2000 MG PO (08:24)
[2022-11-11] MEDS: FUROsemide 20 mg Tablet PO (08:25)
[2022-11-11] MEDS: aspirin 81 mg EC Tablet PO (08:25)
[2022-11-11] MEDS: clopidogrel 75 mg Tablet PO (08:26)
[2022-11-11] MEDS: omega-3 fatty acids 1,000 mg Capsule 2000 MG PO (08:26)
--- NOTE | 2022-11-11 08:33 | PM.PN ---
Subjective Medications: Medication Review Details: Current Medications Amlodipine Besylate (Amlodipine 10 Mg Tablet) 10 mg PO DAILY@12 [facility] Last Admin: 11/10/22 12:11 Dose: 10 mg Ascorbic Acid (Ascorbic Acid 500 Mg Tablet) 2,000 mg PO BID [facility] Last Admin: 11/11/22 08:24 Dose: 2,000 mg Aspirin (Aspirin 81 Mg Ec Tablet) 81 mg PO DAILY [facility] Last Admin: 11/11/22 08:25 Dose: 81 mg Atorvastatin Calcium (Atorvastatin 40 Mg Tablet) 80 mg PO BEDTIME [facility] Last Admin: 11/10/22 20:58 Dose: 80 mg Clopidogrel Bisulfate (Clopidogrel 75 Mg Tablet) 75 mg PO DAILY [facility] Last Admin: 11/11/22 08:26 Dose: 75 mg Furosemide (Furosemide 20 Mg Tablet) 20 mg PO DAILY [facility] Last Admin: 11/11/22 08:25 Dose: 20 mg Lisinopril (Lisinopril 20 Mg Tablet) 20 mg PO QAM [facility] Last Admin: 11/11/22 05:14 Dose: 20 mg [id number] Ethyl Esters ([place]-3 Fatty Acids 1,000 Mg Capsule) 2,000 mg PO DAILY [facility] Last Admin: 11/11/22 08:26 Dose: 2,000 mg Vitamin D (Cholecalciferol (Vitamin D3) 5,000 Unit Tablet) 5,000 unit PO DAILY [facility] Last Admin: 11/11/22 08:24 Dose: 5,000 unit Vitals/I&O/Wt Last Vital Signs Temp 97.7 F 11/11/22 08:00 Pulse 65 11/11/22 08:00 Resp 18 11/11/22 08:00 BP 132/67 11/11/22 08:00 Pulse Ox 93 11/11/22 08:00 O2 Del Method Room Air 11/11/22 03:13 11/10/22 11/11/22 11/11/22 22:59 06:59 14:59 Intake Total 1851.667 / 2211.667 120 / 2331.667 Balance 1851.667 / 2211.667 120 / 2331.667 Weight last 48 hrs Weight 235 lb Physical Exam Narrative: GENERAL: The patient is alert and oriented times three. Not in any acute distress. [] HEENT: No significant pallor, icterus or lymphadenopathy.Oral cavity: There are no mucous membrane lesions. NECK: Trachea appears to be central. No masses noted. No JVD or thyromegaly appreciated. RESPIRATORY: Chest is symmetrical. No intercostals muscle retraction or any accessory muscle activation. There is no chest wall tenderness. Breath sounds are heard bilaterally. No rales or rhonchi heard. No evidence of any consolidation. [] BREASTS: Deferred. [] HEART: The heart sounds are normal. No S3 or S4. [No significant murmurs] []. No pericardial rub ABDOMEN: No vessel pulsations or distention. No tenderness. No organomegaly appreciated. Bowel sounds are normally heard. [] : Deferred. [] RECTAL: Deferred. [] LYMPHATIC: No lymphadenopathy noted in the neck. EXTREMITIES: No edema or cyanosis. No clubbing. MUSCULOSKELETAL: No acute joint deformities or swelling SKIN: There are no significant rashes or ecchymosis NEUROPSYCHIATRIC: The patient is alert and oriented x3. Appears to be in a good mood. No tremors or rigidity noted. [] Data 11/10/22 16:09 11/10/22 16:09 Other Labs: Laboratory Last Values WBC 7.6 10^3/uL (4.0-10.0) 11/10/22 16:09 RBC 6.58 10^6/uL (4.1-5.3) H 11/10/22 16:09 Hgb 15.7 g/dL (11.7-16.6) 11/10/22 16:09 Hct 50.7 % (42.0-52.0) 11/10/22 16:09 MCV 77.1 fl (80-94) L 11/10/22 16:09 MCH 23.9 pg (28.0-34.0) L 11/10/22 16:09 MCHC 31.0 g/dL (30.0-36.0) 11/10/22 16:09 RDW 18.7 % (12.1-15.1) H 11/10/22 16:09 Plt Count 435 10^3/cmm (130-400) H 11/10/22 16:09 MPV 10.1 fL (7.4-10.4) 11/10/22 16:09 Neut % (Auto) 73.3 % 11/10/22 16:09 Lymph % (Auto) 11.6 % 11/10/22 16:09 [place] % (Auto) 11.3 % 11/10/22 16:09 Eos % (Auto) 1.7 % 11/10/22 16:09 Baso % (Auto) 1.7 % 11/10/22 16:09 Neut # (Auto) 5.56 10^3/uL (1.8-7.7) 11/10/22 16:09 Lymph # (Auto) 0.9 10^3/uL (0.8-4.8) 11/10/22 16:09 [place] # (Auto) 0.9 10^3/uL (0.2-0.9) 11/10/22 16:09 Eos # (Auto) 0.1 10^3/uL (0.0-0.8) 11/10/22 16:09 Baso # (Auto) 0.1 10^3/uL (0.0-0.1) 11/10/22 16:09 Nucleated RBC % (auto) 0 % 11/10/22 16:09 Nucleated RBCs # 0.0 /100WBC 11/10/22 16:09 PT 13.80 SECONDS (12.1-14.9) 11/09/22 15:08 INR 1.03 (0.8-1.2) 11/09/22 15:08 APTT 33.1 SECONDS (23.9-36.7) 11/10/22 14:00 Sodium 138 mmol/L (136-145) 11/10/22 16:09 Potassium 3.9 mmol/L (3.5-5.1) 11/10/22 16:09 Chloride 101 mmol/L (98-107) 11/10/22 16:09 Carbon Dioxide 25 mmol/L (22-29) 11/10/22 16:09 Anion Gap 15.9 (5-19) 11/10/22 16:09 BUN 25 mg/dL (8-23) H 11/10/22 16:09 Creatinine 1.4 mg/dL (0.7-1.2) H 11/10/22 16:09 GFR Calculation Not Reportable 11/10/22 16:09 Glucose 111 mg/dL (65-115) 11/10/22 16:09 Calculated Osmolality 291 mOsm/kg (285-295) 11/10/22 16:09 Calcium 9.0 mg/dL (8.5-10.5) 11/10/22 16:09 Blood Type O Positive 11/09/22 15:08 Rho(D) Type Positive 11/09/22 15:08 Antibody Screen Negative 11/09/22 15:08 Coding Level of Care Code Acute Code for Chg Fwd Diagnoses
[2022-11-11 09:46] LABS: Blood Urea Nitrogen 24 mg/dL (8-23); Calcium 9.2 mg/dL (8.5-10.5); Carbon Dioxide 24 mmol/L (22-29); Chloride 103 mmol/L (98-107); Glucose 140 mg/dL (65-115); Osmolality Calculated 294 mOsm/kg (285-295); Sodium 139 mmol/L (136-145)
[2022-11-11 09:54] LABS: Anion Gap 16.1 (5-19); Potassium 4.1 mmol/L (3.5-5.1)
[2022-11-11] MEDS: amlodipine 10 mg Tablet PO (11:01)
--- NOTE | 2022-11-11 11:10 | PC.NURSE ---
IV removed, education provided, patient and family verbalized understanding of education, Stent card given to patient and family. Patient wheeled to front by staff and assisted to vehicle.
== END 2022-11-11 11:03 | disposition home or self-care (01) ==
LOC: CCL 07:27 → CSU 20:05
PROVIDERS: Internal Medicine; PCP Family Medicine; Visit Provider Internal Medicine Cardiovascular Disease
DX: I25.110 Atherosclerotic heart disease of native coronary artery with unstable angina pectoris (principal); E78.5 Hyperlipidemia, unspecified; Z87.891 Personal history of nicotine dependence; E66.01 Morbid (severe) obesity due to excess calories; Z68.32 Body mass index [BMI] 32.0-32.9, adult; Z95.1 Presence of aortocoronary bypass graft; Z95.0 Presence of cardiac pacemaker; N18.31 Chronic kidney disease, stage 3a; R07.9 Chest pain, unspecified; R06.02 Shortness of breath; I12.9 Hypertensive chronic kidney disease with stage 1 through stage 4 chronic kidney disease, or unspecified chronic kidney disease
CPT/HCPCS: 36415; 80048; 85025; 85347; 85610; 85730; 86850; 86900; 92978; 93455; 96361; 96365; 96367; 99152; 99153; C1725; C1753; C1769; C1874; C1887; C1894; C9600; J1644; J2250; J3010; J3490; J7030; Q0163; Q9967

== ENCOUNTER 2022-12-02 11:29 | Outpatient (CLI) | payer OTHER, SELFPAY ==
[2022-12-02 12:41] LABS: Basophils # 0.1 10^3/uL (0.0-0.1); Basophils % 1.8 %; Eosinophils # 0.2 10^3/uL (0.0-0.8); Hematocrit 51.2 % (42.0-52.0); Hemoglobin 16.3 g/dL (11.7-16.6); Lymphocytes # 0.8 10^3/uL (0.8-4.8); Lymphocytes % 10.2 %; Mean Corpuscular HGB Conc 31.8 g/dL (30.0-36.0); Mean Corpuscular Hemoglobin 24.1 pg (28.0-34.0); Mean Corpuscular Volume 75.6 fl (80-94); Mean Platelet Volume 10.2 fL (7.4-10.4); Monocytes # 0.9 10^3/uL (0.2-0.9); Monocytes % 11.2 %; Neutrophils # 5.55 10^3/uL (1.8-7.7); Neutrophils % 73.4 %; Nucleated Red Blood Cells % 0 %; Platelet Count 437 10^3/cmm (130-400); Red Blood Count 6.77 10^6/uL (4.1-5.3); White Blood Count 7.6 10^3/uL (4.0-10.0)
[2022-12-02 13:51] LABS: Iron 105 ug/dL (59-158)
[2022-12-03 14:02] LABS: Ferritin 135 ng/mL (30-400); Iron 109 ug/dL (59-158); Percent Saturation 34.3 % (20-50); Total Iron Binding Capacity 317 mcg/dl; Unsaturated Iron Binding 208 ug/dL (112-347)
[2022-12-03 14:24] LABS: LAB Peripheral Smear Sent for Review
== END 2022-12-02 11:30 | disposition home or self-care (01) ==
LOC: LAB 11:32
PROVIDERS: Nurse Practitioner Family; PCP Family Medicine; Visit Provider Emergency Medicine
DX: D64.9 Anemia, unspecified (principal); N18.31 Chronic kidney disease, stage 3a; I25.110 Atherosclerotic heart disease of native coronary artery with unstable angina pectoris; I65.23 Occlusion and stenosis of bilateral carotid arteries; D75.839 Thrombocytosis, unspecified; R79.89 Other specified abnormal findings of blood chemistry
CPT/HCPCS: 36415; 80503; 82728; 83540; 83550; 85025

== ENCOUNTER → 2022-12-06 09:15 | Outpatient (BNVA) | payer OTHER, SELFPAY | PROVIDERS: PCP Family Medicine; Visit Provider Nurse Practitioner Family | DX: I25.10 Atherosclerotic heart disease of native coronary artery without angina pectoris (principal); I10 Essential (primary) hypertension; Z95.0 Presence of cardiac pacemaker; Z87.891 Personal history of nicotine dependence; Z95.1 Presence of aortocoronary bypass graft | CPT/HCPCS: 99214 ==

== ENCOUNTER → 2023-06-01 16:59 | Outpatient (BNVA) | payer OTHER, SELFPAY | PROVIDERS: PCP Family Medicine; Visit Provider Internal Medicine Cardiovascular Disease | DX: Z45.010 Encounter for checking and testing of cardiac pacemaker pulse generator [battery] (principal) | CPT/HCPCS: 93296 ==

== ENCOUNTER 2024-04-04 08:42 | Outpatient (CLI) | payer OTHER, SELFPAY ==
[2024-04-04 09:46] LABS: Albumin Level 4.4 g/dL (3.5-5.2); Anion Gap 12.9 (5-19); Basophils # 0.1 10^3/uL (0.0-0.1); Blood Urea Nitrogen 17 mg/dL (8-23); Calcium 9.3 mg/dL (8.5-10.5); Carbon Dioxide 26 mmol/L (22-29); Chloride 101 mmol/L (98-107); Glucose 109 mg/dL (65-115); Hematocrit 54.1 % (37-53); Lymphocytes # 0.8 10^3/uL (0.8-4.8); Lymphocytes % 11.4 %; Mean Corpuscular HGB Conc 32.2 g/dL (30-55); Mean Corpuscular Hemoglobin 25.3 pg (27-33); Mean Corpuscular Volume 78.5 fl (82-101); Mean Platelet Volume 10.4 fL (7.4-10.4); Monocytes # 0.7 10^3/uL (0.2-0.9); Monocytes % 10.6 %; Neutrophils % 75.7 %; Nucleated Red Blood Cells % 0 %; Phosphorus 3.3 mg/dL (2.5-4.5); Platelet Count 418 10^3/cmm (157-399); Potassium 3.9 mmol/L (3.5-5.1); Red Blood Count 6.89 10^6/uL (3.85-5.65); Red Cell Distribution Width 18.9 % (12.1-15.1); Sodium 136 mmol/L (136-145)
[2024-04-04 09:47] LABS: Calcium 9.7 mg/dL (8.5-10.5)
[2024-04-04 09:52] LABS: Parathyroid Hormone 45.7 pg/mL (15-65)
[2024-04-04 10:04] LABS: Urine Creatinine 29 mg/dL (39-259); Urine Protein Random 7 mg/dL
[2024-04-04 10:14] LABS: UPRO/UCREAT Ratio 0.24 mg/mg CR
== END 2024-04-04 08:43 | disposition home or self-care (01) ==
LOC: LAB 08:43
PROVIDERS: PCP Family Medicine; Visit Provider Registered Nurse
DX: N18.2 Chronic kidney disease, stage 2 (mild) (principal)
CPT/HCPCS: 36415; 80069; 82310; 82570; 83970; 84156; 85025

== ENCOUNTER 2024-09-25 09:29 | Outpatient (CLI) | payer OTHER, SELFPAY ==
[2024-09-25 10:40] LABS: Basophils # 0.2 10^3/uL (0.0-0.1); Basophils % 2.1 %; Eosinophils # 0.5 10^3/uL (0.0-0.8); Eosinophils % 6.2 %; Hematocrit 50.3 % (37-53); Lymphocytes % 11.4 %; Mean Corpuscular HGB Conc 32.6 g/dL (30-55); Mean Corpuscular Hemoglobin 26.5 pg (27-33); Mean Corpuscular Volume 81.3 fl (82-101); Mean Platelet Volume 9.8 fL (7.4-10.4); Monocytes # 0.9 10^3/uL (0.2-0.9); Monocytes % 9.9 %; Neutrophils # 5.97 10^3/uL (1.8-7.7); Neutrophils % 69.6 %; Nucleated Red Blood Cells % 0 %; Platelet Count 433 10^3/cmm (157-399); Red Blood Count 6.19 10^6/uL (3.85-5.65); Red Cell Distribution Width 17.9 % (12.1-15.1); White Blood Count 8.58 10^3/uL (3.29-11.43)
[2024-09-25 11:03] LABS: Albumin Level 4.4 g/dL (3.5-5.2); Blood Urea Nitrogen 26 mg/dL (8-23); Calcium 9.2 mg/dL (8.5-10.5); Carbon Dioxide 25 mmol/L (22-29); Chloride 103 mmol/L (98-107); Glucose 114 mg/dL (65-115); Phosphorus 2.8 mg/dL (2.5-4.5); Sodium 138 mmol/L (136-145)
[2024-09-25 11:04] LABS: Calcium 9.5 mg/dL (8.5-10.5)
[2024-09-25 11:09] LABS: Parathyroid Hormone 45.9 pg/mL (15-65)
[2024-09-25 11:17] LABS: Creatinine Urine, Random 44 mg/dL (39-259); Microalbum Creatinine Ratio Ur 23 mg/dL (0-20); Microalbumin Random Urine 1 ug/dL (0-20)
== END 2024-09-25 09:30 | disposition home or self-care (01) ==
LOC: LAB 09:33
PROVIDERS: PCP Family Medicine; Visit Provider Registered Nurse
DX: N18.2 Chronic kidney disease, stage 2 (mild) (principal)
CPT/HCPCS: 36415; 80069; 82044; 82310; 83970; 85025

== ENCOUNTER 2025-04-09 08:31 | Outpatient (CLI) | payer OTHER, SELFPAY ==
[2025-04-09 09:24] LABS: Hematocrit 49.7 % (37-53); Hemoglobin 15.80 g/dL (11.27-16.99); Mean Corpuscular HGB Conc 31.8 g/dL (30-55); Mean Corpuscular Hemoglobin 25.9 pg (27-33); Mean Corpuscular Volume 81.5 fl (82-101); Nucleated Red Blood Cells % 0 %; Platelet Count 368 10^3/cmm (157-399); Red Blood Count 6.10 10^6/uL (3.85-5.65); White Blood Count 7.65 10^3/uL (3.29-11.43)
[2025-04-09 09:41] LABS: Albumin Level 4.2 g/dL (3.5-5.2); Anion Gap 18.0 (5-19); Blood Urea Nitrogen 25 mg/dL (8-23); Calcium 9.0 mg/dL (8.5-10.5); Carbon Dioxide 24 mmol/L (22-29); Chloride 103 mmol/L (98-107); Glucose 173 mg/dL (65-115); Potassium 4.0 mmol/L (3.5-5.1); Sodium 141 mmol/L (136-145)
[2025-04-09 09:42] LABS: Calcium 9.3 mg/dL (8.5-10.5)
[2025-04-09 09:43] LABS: Creatinine Urine, Random 91 mg/dL (39-259); Microalbum Creatinine Ratio Ur 11 mg/dL (0-20)
== END 2025-04-09 08:32 | disposition home or self-care (01) ==
LOC: LAB 08:36
PROVIDERS: PCP Family Medicine; Visit Provider Registered Nurse
DX: N18.32 Chronic kidney disease, stage 3b (principal)
CPT/HCPCS: 36415; 80069; 82044; 82310; 83970; 85025